=== PATIENT | female | born 1950 | race Caucasian/White ===

== ENCOUNTER 2016-07-05 10:30 | Inpatient (IN) | payer MEDICARE, OTHER ==
[2016-07-05 11:01] LABS: CHLORIDE,CL 100 mEq/L (98-106); SODIUM,NA 139 mEq/L (136-145)
[2016-07-05] MEDS ORDERED: Acetaminophen 325 MG Tab PO PRN (12:07)
[2016-07-05] MEDS ORDERED: Sodium Chloride 0.9% 10 ML Syringe FLUSH PRN (12:07)
[2016-07-05] MEDS ORDERED: Temazepam 15 MG Cap PO PRN (12:07)
[2016-07-05] MEDS ORDERED: Albuterol/Ipratropium 3.0-0.5 MG/3 ML Neb Soln ONE (12:23)
[2016-07-05] MEDS: Albuterol/Ipratropium 3.0-0.5 MG/3 ML Neb Soln NEB SCH ×3 (12:32→21:10)
[2016-07-05] MEDS: Levofloxacin/Dextrose 5%-Water 500 MG in Premix Bag 1 BAG IV SCH (14:11)
[2016-07-05] MEDS: Albuterol 0.083% 2.5 MG/3 ML Neb Soln NEB PRN ×2 (14:19→21:11)
[2016-07-05] MEDS: Enoxaparin 40 MG/0.4 ML Syringe SUBCUT SCH (21:11)
[2016-07-06] MEDS: Albuterol 0.083% 2.5 MG/3 ML Neb Soln NEB PRN ×4 (00:10→07:46)
[2016-07-06] MEDS: Albuterol/Ipratropium 3.0-0.5 MG/3 ML Neb Soln NEB SCH ×4 (09:17→20:00)
--- NOTE | 2016-07-06 10:08 | PN ---
DATE: 07/06/2016 S: Lani was admitted yesterday for COPD exacerbation. She is feeling better, less short of breath. Her sats are in the mid to high 90s on 2 L at this point. She has not spiked any temps. Lab work was reassuring. Upon review, her white count is elevated, still waiting on the CT scan report. PHYSICAL EXAMINATION: GENERAL: Today, she is pleasant and cooperative. NECK: Her neck veins are flat. LUNGS: Lung sounds are little more audibly wheezy today with mostly on expiration. No rales are heard. CARDIAC: Tones are regular. ABDOMEN: Soft. She has no peripheral edema. ASSESSMENT: CHRONIC OBSTRUCTIVE PULMONARY DISEASE EXACERBATION. P: I am going to add Solu-Medrol to her regimen. She has been on albuterol nebs, we will switch over to DuoNeb. No other changes at this time. JEFFERSON/SAMARIA /[id number]
[2016-07-06] MEDS: methylPREDNISolone Sodium Succinate 125 MG/2 ML SDV IVPUSH SCH ×2 (10:10→19:54)
[2016-07-06] MEDS: AMLODIPINE 5 MG PO SCH (10:10)
[2016-07-06] MEDS: ALPRAZOLAM 0.25 MG PO PRN (10:15)
[2016-07-06] MEDS: Naproxen 500 MG Tab PO PRN (12:05)
[2016-07-06] MEDS: Levofloxacin/Dextrose 5%-Water 500 MG in Premix Bag 1 BAG IV SCH (12:07)
[2016-07-06] MEDS: Enoxaparin 40 MG/0.4 ML Syringe SUBCUT SCH (19:59)
[2016-07-07] MEDS: Albuterol 0.083% 2.5 MG/3 ML Neb Soln NEB PRN ×3 (01:54→23:28)
[2016-07-07] MEDS: AMLODIPINE 5 MG PO SCH (07:51)
[2016-07-07] MEDS: methylPREDNISolone Sodium Succinate 125 MG/2 ML SDV IVPUSH SCH ×2 (07:52→19:23)
[2016-07-07] MEDS: Albuterol/Ipratropium 3.0-0.5 MG/3 ML Neb Soln NEB SCH ×4 (09:36→21:42)
[2016-07-07] MEDS: ALPRAZOLAM 0.25 MG PO PRN ×2 (12:25→21:00)
[2016-07-07] MEDS: Levofloxacin/Dextrose 5%-Water 500 MG in Premix Bag 1 BAG IV SCH (12:25)
[2016-07-07] MEDS: Naproxen 500 MG Tab PO PRN (15:25)
--- NOTE | 2016-07-07 21:16 | PCM.PN ---
- General Info Date of Service: 07/07/16 Admission Dx/Problem (Free Text): COPD exacerbation Subjective Update: patient in observation status for 48 hours and today moving to acute inpatient or COPD exacerbation. She continues to improve. Solu-Medrol was added yesterday which she is tolerating well. She was changed from albuterol to DuoNeb treatments. Nursing staff have no new concerns for her. She has been afebrile. O2 sats greater than 95% on 2 L per nasal cannula. Functional Status: Reports: tolerating diet - Review of Systems General: Reports: No Symptoms HEENT: Reports: no symptoms Pulmonary: Reports: cough Cardiovascular: Reports: No Symptoms Gastrointestinal: Reports: No symptoms Musculoskeletal: Reports: no symptoms - Patient Data Vitals - most recent: Last Vital Signs Temp 96.9 F 07/07/16 19:18 Pulse 89 07/07/16 19:18 Resp 20 07/07/16 19:18 BP 142/68 H 07/07/16 19:18 Pulse Ox 99 07/07/16 19:18 Weight - most recent: 159 lb 8 oz I&O - last 24 hours: Intake & Output 07/07/16 07/07/16 07/07/16 06:59 14:59 22:59 Intake Total 660 200 Balance 660 200 Freddy Results last 24 hrs: Microbiology 07/07/16 07:34 Gram Stain - Final Sputum - Expectorated Med Orders - Current: Current Medications Acetaminophen (Tylenol) 650 mg PO Q4H PRN PRN Reason: Pain (Mild 1-3)/fever Albuterol (Proventil Neb Soln) 2.5 mg NEB Q2H PRN PRN Reason: Shortness Of Breath/wheezing Last Admin: 07/07/16 05:29 Dose: 2.5 mg Albuterol/Ipratropium (Duoneb 3.0-0.5 Mg/3 Ml) 3 ml NEB QIDRT [facility] Last Admin: 07/07/16 16:24 Dose: 3 ml Alprazolam (Xanax) 0.25 - 0.5 mg PO Q6H PRN PRN Reason: Anxiety Last Admin: 07/07/16 12:25 Dose: 0.25 mg Enoxaparin Sodium (Lovenox) 40 mg SUBCUT Q24H [facility] Last Admin: 07/06/16 19:59 Dose: Not Given Levofloxacin/Dextrose 500 mg/ (Premix) 100 mls @ 100 mls/hr IV Q24H [facility] Last Admin: 07/07/16 12:25 Dose: 100 mls/hr Methylprednisolone Sodium Succinate (Solu-Medrol) 62.5 mg IVPUSH Q12H [facility] Last Admin: 07/07/16 19:23 Dose: 62.5 mg Naproxen (Naprosyn) 250 mg PO Q12H PRN PRN Reason: Pain Last Admin: 07/07/16 15:25 Dose: 250 mg Ptom (Amlodipine [ (Norvasc] 5 Mg)) 5 mg PO DAILY [facility] Last Admin: 07/07/16 07:51 Dose: 5 mg Sodium Chloride (Saline Flush) 10 ml FLUSH ASDIRECTED PRN PRN Reason: Keep Vein Open Temazepam (Restoril) 15 mg PO BEDTIME PRN PRN Reason: Sleep Discontinued Medications Albuterol/Ipratropium (Duoneb 3.0-0.5 Mg/3 Ml) Confirm Administered Dose 3 ml .ROUTE .STK-MED ONE Stop: 07/05/16 12:24 Last Admin: 07/05/16 12:51 Dose: Not Given - Exam General: alert, oriented HEENT: Mucous membr. moist/pink Neck: supple. No: lymphadenopathy Lungs: Wheezing. No: Crackles, Rhonchi Cardiovascular: Regular Rate, Regular Rhythm Abdomen: soft, no tenderness Extremities: no edema, no cyanosis Skin: warm, dry, intact Neurological: no new focal deficit Psy/Mental Status: alert - Problem List Review Problem List Initiated/Reviewed/Updated: Yes - My Orders Last 24 Hours: My Active Orders 07/07/16 07:34 CULTURE SPUTUM + SMEAR [RM] Routine 07/08/16 06:00 BMP [BASIC METABOLIC PANEL,BMP] [CHEM] Routine CBC WITH AUTO DIFF [HEME] Stat - Assessment Assessment:: COPD exacerbation - Plan Plan:: Continue with current treatments and medications. We'll recheck CBC and BMP tomorrow morning.
[2016-07-07] MEDS: Enoxaparin 40 MG/0.4 ML Syringe SUBCUT SCH (21:41)
[2016-07-08] MEDS: Albuterol 0.083% 2.5 MG/3 ML Neb Soln NEB PRN ×3 (03:45→23:32)
[2016-07-08] MEDS: AMLODIPINE 5 MG PO SCH (08:11)
[2016-07-08] MEDS: methylPREDNISolone Sodium Succinate 125 MG/2 ML SDV IVPUSH SCH ×2 (08:12→19:54)
[2016-07-08] MEDS: Naproxen 500 MG Tab PO PRN (08:18)
[2016-07-08] MEDS: Albuterol/Ipratropium 3.0-0.5 MG/3 ML Neb Soln NEB SCH ×4 (09:05→21:11)
[2016-07-08] MEDS: Levofloxacin/Dextrose 5%-Water 500 MG in Premix Bag 1 BAG IV SCH (13:18)
--- NOTE | 2016-07-08 14:33 | PCM.PN ---
- General Info Date of Service: 07/08/16 Admission Dx/Problem (Free Text): COPD exacerbation Subjective Update: Patient continues to feel that she is improving. Has been tolerating Solu- Medrol twice a day. Her white count is elevated from yesterday which can be attributed to Solu-Medrol. Is tolerating other treatments well. Continues to cough a lot. She has not had any improvement with Nasonex in the past and is not interested in trying it now. Nursing staff have no new concerns for her. She has been afebrile. O2 sats greater than 95% on 2 L per nasal cannula. Has no new complaints or concerns today. Functional Status: Reports: tolerating diet, ambulating. Denies: new symptoms - Review of Systems General: Reports: Appetite (is good). Denies: Fever, Chills HEENT: Denies: sinus congestion, sore throat Pulmonary: Reports: cough. Denies: shortness of breath, sputum, wheezing Cardiovascular: Denies: Chest Pain, Dyspnea on Exertion Gastrointestinal: Denies: Abdominal pain, Constipation, Diarrhea, Nausea, Vomiting Genitourinary: Reports: no symptoms Musculoskeletal: Reports: no symptoms Skin: Reports: dryness Neurological: Reports: No Symptoms - Patient Data Vitals - most recent: Last Vital Signs Temp 96.6 F 07/08/16 12:00 Pulse 78 07/08/16 12:00 Resp 18 07/08/16 12:00 BP 140/72 07/08/16 12:00 Pulse Ox 96 07/08/16 12:00 Weight - most recent: 159 lb 8 oz I&O - last 24 hours: Intake & Output 07/07/16 07/08/16 07/08/16 22:59 06:59 14:59 Intake Total 200 780 Balance 200 780 Lab Results last 24 hrs: Laboratory Results - last 24 hr 07/08/16 07/08/16 Range/Units 07:05 07:05 WBC 19.5 H (5.0-10.0) 10^3/uL RBC 5.19 (4.00-5.50) 10^6/uL Hgb 16.8 H (12.0-16.0) g/dL Hct 49.9 H (37.0-47.0) % MCV 96.1 H (82.0-94.0) fL MCH 32.4 H (27.0-32.0) pg MCHC 33.7 (33.0-38.0) g/dL RDW Coeff of Lucille 13.1 (11.0-15.0) % Plt Count 289 (150-400) 10^3/uL Neut % (Auto) 83.5 (35-85) % Lymph % (Auto) 9.4 L (10-55) % Branch % (Auto) 6.7 (0-16) % Eos % (Auto) 0.1 (0-5) % Baso % (Auto) 0.3 (0-3) % Neut # (Auto) 16.32 H (1.80-7.00) 10^3/uL Lymph # (Auto) 1.84 (1.00-4.80) 10^3/uL Branch # (Auto) 1.31 H (0.00-0.80) 10^3/uL Eos # (Auto) 0.01 (0.00-0.45) 10^3/uL Baso # (Auto) 0.05 10^3/uL Sodium 139 (136-145) mEq/L Potassium 4.0 (3.5-5.0) mEq/L Chloride 101 (98-106) mEq/L Carbon Dioxide 26 (21-32) mmol/L BUN 23 H (7-18) mg/dL Creatinine 1.1 H (0.6-1.0) mg/dL Est Cr Clr Drug Dosing 42.85 mL/min Estimated GFR (MDRD) 50 L (>=60) mL/min Glucose 127 H D (75-99) mg/dL Calcium 8.9 (8.4-10.1) mg/dL Freddy Results last 24 hrs: Microbiology 07/07/16 07:34 Gram Stain - Final Sputum - Expectorated Sputum Culture - Preliminary Med Orders - Current: Current Medications Acetaminophen (Tylenol) 650 mg PO Q4H PRN PRN Reason: Pain (Mild 1-3)/fever Albuterol (Proventil Neb Soln) 2.5 mg NEB Q2H PRN PRN Reason: Shortness Of Breath/wheezing Last Admin: 07/08/16 06:40 Dose: 2.5 mg Albuterol/Ipratropium (Duoneb 3.0-0.5 Mg/3 Ml) 3 ml NEB QIDRT [facility] Last Admin: 07/08/16 13:18 Dose: 3 ml Alprazolam (Xanax) 0.25 - 0.5 mg PO Q6H PRN PRN Reason: Anxiety Last Admin: 07/07/16 21:00 Dose: 0.5 mg Enoxaparin Sodium (Lovenox) 40 mg SUBCUT Q24H [facility] Last Admin: 07/07/16 21:41 Dose: Not Given Levofloxacin/Dextrose 500 mg/ (Premix) 100 mls @ 100 mls/hr IV Q24H [facility] Last Admin: 07/08/16 13:18 Dose: 100 mls/hr Methylprednisolone Sodium Succinate (Solu-Medrol) 62.5 mg IVPUSH Q12H [facility] Last Admin: 07/08/16 08:12 Dose: 62.5 mg Naproxen (Naprosyn) 250 mg PO Q12H PRN PRN Reason: Pain Last Admin: 07/08/16 08:18 Dose: 250 mg Ptom (Amlodipine [ (Norvasc] 5 Mg)) 5 mg PO DAILY [facility] Last Admin: 07/08/16 08:11 Dose: 5 mg Sodium Chloride (Saline Flush) 10 ml FLUSH ASDIRECTED PRN PRN Reason: Keep Vein Open Temazepam (Restoril) 15 mg PO BEDTIME PRN PRN Reason: Sleep Discontinued Medications Albuterol/Ipratropium (Duoneb 3.0-0.5 Mg/3 Ml) Confirm Administered Dose 3 ml .ROUTE .STK-MED ONE Stop: 07/05/16 12:24 Last Admin: 07/05/16 12:51 Dose: Not Given - Exam General: alert, oriented, no acute distress HEENT: Mucous membr. moist/pink Neck: supple. No: lymphadenopathy Lungs: Wheezing (Appreciated throughout all lung benitez.). No: Decreased breath sounds, Crackles, Stridor Cardiovascular: Regular Rate, Regular Rhythm, No Murmurs Abdomen: soft, no tenderness Extremities: no edema Skin: warm, dry, intact Neurological: no new focal deficit Psy/Mental Status: alert, normal affect, normal mood - Problem List Review Problem List Initiated/Reviewed/Updated: Yes - Assessment Assessment:: COPD exacerbation - Plan Plan:: Continue with current treatments and medications. Patient will be followed by her PCP on rounds tomorrow.
[2016-07-08] MEDS: ALPRAZOLAM 0.25 MG PO PRN (19:04)
[2016-07-08] MEDS: Enoxaparin 40 MG/0.4 ML Syringe SUBCUT SCH (21:11)
[2016-07-09] MEDS: Albuterol 0.083% 2.5 MG/3 ML Neb Soln NEB PRN ×2 (03:42→07:31)
[2016-07-09] MEDS: AMLODIPINE 5 MG PO SCH (07:32)
[2016-07-09] MEDS: methylPREDNISolone Sodium Succinate 125 MG/2 ML SDV IVPUSH SCH (08:12)
[2016-07-09] MEDS: Albuterol/Ipratropium 3.0-0.5 MG/3 ML Neb Soln NEB SCH ×4 (09:17→20:11)
[2016-07-09] MEDS: Levofloxacin/Dextrose 5%-Water 500 MG in Premix Bag 1 BAG IV SCH (13:06)
[2016-07-09] MEDS: Naproxen 500 MG Tab PO PRN (15:02)
[2016-07-09] MEDS: ALPRAZOLAM 0.25 MG PO PRN (19:32)
[2016-07-09] MEDS: Enoxaparin 40 MG/0.4 ML Syringe SUBCUT SCH (20:11)
[2016-07-10] MEDS: Albuterol 0.083% 2.5 MG/3 ML Neb Soln NEB PRN ×2 (00:08→04:14)
--- NOTE | 2016-07-10 07:04 | PN ---
DATE: 07/09/2016 S: Lani has had a pretty good weekend. She has remained afebrile. She is saturating in the upper 90s. We do have her off O2 now on at rest she is around 96%. She has not been up ambulating in the halls. We are going to do that. Thus far, all micro including sputum Gram stain has been negative. She does get a little tachycardic when she gets her nebulizers and steroids, but for the most part she tolerates this well. O: GENERAL: On physical exam today, she once again appears a little tachypneic and air hungry. HEENT: Otherwise benign. NECK: Veins are nondistended. LUNGS: Sounds appear to be clear with inspiration. She does continue to have some end-expiratory wheezing overall pretty adequate air movement. CARDIAC: Tones are regular. ABDOMEN: Soft. She has no peripheral edema. ASSESSMENT: CHRONIC OBSTRUCTIVE PULMONARY DISEASE EXACERBATION. P: We will get her up and ambulating with RT today and monitor essentially if in need of home O2. Otherwise no change. Plan on home tomorrow morning. JEFFERSON/SAMARIA /[id number]
[2016-07-10 07:26] VITALS: BP 142/76
[2016-07-10] MEDS: AMLODIPINE 5 MG PO SCH (08:03)
[2016-07-10] MEDS: Albuterol/Ipratropium 3.0-0.5 MG/3 ML Neb Soln NEB SCH (08:04)
--- NOTE | 2016-07-11 08:46 | DISCH ---
ADMISSION DIAGNOSIS: Chronic obstructive pulmonary disease exacerbation. DISCHARGE DIAGNOSIS: CHRONIC OBSTRUCTIVE PULMONARY DISEASE EXACERBATION. HISTORY: The patient presented with cough, wheezing, and shortness of breath. She has a known COPD, is very noncompliant with regard to cares in this regard. She does use albuterol inhaler and DuoNeb on a p.r.n. basis only. She has been resistant to any further Pulmonology followup or inhaled steroids. She presented with an elevated white count. No fever, but audible wheezing. Her lab work looked fine including a CRP and D-dimer. She was admitted for a COPD exacerbation. HOSPITAL COURSE: The patient was admitted, given IV steroids, Levaquin and DuoNeb. She has really had an unremarkable hospital course. She has not been febrile, is a little tachycardic and anxious with the nebs, but tolerated well. She has had no complications. She was on oxygen. She has been weaned off and is saturating in the mid 90s on room air. She remains a little tachypneic, which is her baseline. We did have RT evaluate and treat. She does drop her sats with ambulation, but she is against any home O2 and refuses home oxygen at this time. We are going to send her home on q.i.d. DuoNeb with p.r.n. albuterol inhaler. Finish course of oral Levaquin and I will see her back in clinic for followup in 2 weeks. At that time, I will try to talk to the patient about the potential for home O2, especially with activity during the day and consideration for an inhaled steroid. COMPLICATIONS: During her stay were none. CONSULTATIONS: RT. PROCEDURES: CT chest. DISPOSITION: Discharged home. LINA /[id number]
== END 2016-07-10 11:30 | disposition home or self-care (01) | DRG 192 ==
LOC: CC.FCMC 10:30 → CC.MS 10:30 → UNDOADMOB 11:56 → CC.MS 12:00 → OBSVTOIN 07-07 12:00
PROVIDERS: ADMIT Family Medicine; ATTEND Family Medicine
DX: J44.1 Chronic obstructive pulmonary disease with (acute) exacerbation (principal); J45.909 Unspecified asthma, uncomplicated; J30.9 Allergic rhinitis, unspecified; F41.9 Anxiety disorder, unspecified; I10 Essential (primary) hypertension; Z85.44 Personal history of malignant neoplasm of other female genital organs; Z88.1 Allergy status to other antibiotic agents; Z88.0 Allergy status to penicillin; Z88.8 Allergy status to other drugs, medicaments and biological substances; Z91.030 Bee allergy status; Z79.899 Other long term (current) drug therapy; C57.00 Malignant neoplasm of unspecified fallopian tube; Z85.89 Personal history of malignant neoplasm of other organs and systems; F17.200 Nicotine dependence, unspecified, uncomplicated
CPT/HCPCS: 36415; 71020; 71260; 80048; 85025; 85379; 86140; 87070; 87205; 93005; 94640 ×2; 96365; 96366 ×2; 96372 ×2; 96375; 96376 ×2; A9270 ×4; G0378 ×3; J1956 ×2; J2930 ×3; J7620 ×8; Q9967; 93010; 94760; 99220; 99226

== ENCOUNTER 2016-09-06 10:56 | Inpatient (IN) | payer MEDICARE, OTHER ==
[2016-09-06] MEDS ORDERED: Lidocaine/Prilocaine 2.5-2.5% Crm 5 GM Tube TOP ONE (11:09)
[2016-09-06] MEDS: Nicotine 14 MG/24 Hr Patch TRDERM SCH (11:43)
[2016-09-06] MEDS: Budesonide 0.5 MG/2 ML Neb Susp NEB SCH ×3 (11:44→20:01)
[2016-09-06] MEDS ORDERED: Albuterol/Ipratropium 3.0-0.5 MG/3 ML Neb Soln NEB SCH (11:45)
[2016-09-06] MEDS ORDERED: Budesonide 0.5 MG/2 ML Neb Susp ONE (11:47)
[2016-09-06] MEDS ORDERED: Albuterol/Ipratropium 3.0-0.5 MG/3 ML Neb Soln ONE (11:47)
[2016-09-06] MEDS: Albuterol 0.083% 2.5 MG/3 ML Neb Soln NEB PRN ×2 (13:40→21:43)
[2016-09-06] MEDS ORDERED: Sodium Chloride 0.9% 10 ML Syringe FLUSH PRN (13:52)
[2016-09-06] MEDS ORDERED: Acetaminophen 325 MG Tab PO PRN (13:52)
[2016-09-06] MEDS ORDERED: methylPREDNISolone Sodium Succinate 125 MG/2 ML SDV IVPUSH ONE (14:00)
[2016-09-06] MEDS: cefTRIAXone 1 GM Vial IVPUSH SCH (14:21)
[2016-09-06] MEDS: Azithromycin 500 MG in Sodium Chloride 0.9% 250 ML IV SCH (14:36)
[2016-09-06 15:00] LABS: CHLORIDE,CL 101 mEq/L (98-106); SODIUM,NA 139 mEq/L (136-145)
[2016-09-06] MEDS: Albuterol/Ipratropium 3.0-0.5 MG/3 ML Neb Soln NEB SCH ×3 (16:16→20:01)
[2016-09-06] MEDS: Naproxen 500 MG Tab PO PRN (19:09)
[2016-09-06] MEDS: VARENICLINE TARTRATE PO SCH (19:31)
[2016-09-06] MEDS: Enoxaparin 40 MG/0.4 ML Syringe SUBCUT SCH (19:31)
[2016-09-06] MEDS: ALPRAZolam 0.25 MG Tab PO PRN (19:40)
[2016-09-06] MEDS ORDERED: methylPREDNISolone Sodium Succinate 125 MG/2 ML SDV IVPUSH SCH (20:00)
[2016-09-07] MEDS: Albuterol/Ipratropium 3.0-0.5 MG/3 ML Neb Soln NEB PRN (00:15)
[2016-09-07] MEDS: Albuterol 0.083% 2.5 MG/3 ML Neb Soln NEB PRN ×3 (05:11→18:36)
[2016-09-07] MEDS: amLODIPine 2.5 MG Tab PO SCH ×2 (06:42→07:01)
[2016-09-07] MEDS: Naproxen 500 MG Tab PO PRN ×2 (06:46→18:36)
[2016-09-07] MEDS: Nicotine 21 MG/24 Hr Patch TRDERM SCH (08:30)
[2016-09-07] MEDS: Azithromycin 500 MG in Sodium Chloride 0.9% 250 ML IV SCH (08:31)
[2016-09-07] MEDS: VARENICLINE TARTRATE PO SCH ×2 (08:31→20:00)
[2016-09-07] MEDS: cefTRIAXone 1 GM Vial IVPUSH SCH (08:31)
[2016-09-07] MEDS: methylPREDNISolone Sodium Succinate 125 MG/2 ML SDV IVPUSH SCH (08:31)
[2016-09-07] MEDS: Budesonide 0.5 MG/2 ML Neb Susp NEB SCH ×3 (09:12→20:28)
[2016-09-07] MEDS: Albuterol/Ipratropium 3.0-0.5 MG/3 ML Neb Soln NEB SCH ×5 (09:13→20:28)
[2016-09-07] MEDS: Nicotine 14 MG/24 Hr Patch TRDERM SCH (09:40)
[2016-09-07] MEDS: ALPRAZolam 0.25 MG Tab PO PRN (19:55)
[2016-09-07] MEDS: Sennosides 8.6 MG Tab PO PRN (19:55)
[2016-09-07] MEDS: Enoxaparin 40 MG/0.4 ML Syringe SUBCUT SCH (20:00)
--- NOTE | 2016-09-07 21:37 | PCM.PN ---
- General Info Date of Service: 09/07/16 Admission Dx/Problem (Free Text): COPD Exacerbation Functional Status: Reports: pain controlled, tolerating diet. Denies: ambulating - Review of Systems General: Reports: Weakness, Fatigue. Denies: Fever HEENT: Reports: rhinitis Pulmonary: Reports: shortness of breath, cough, wheezing Cardiovascular: Reports: Edema Gastrointestinal: Reports: No symptoms Genitourinary: Reports: no symptoms Musculoskeletal: Reports: no symptoms Skin: Reports: no symptoms Neurological: Reports: No Symptoms - Patient Data Vitals - most recent: Last Vital Signs Temp 97.9 F 09/07/16 16:00 Pulse 92 09/07/16 16:00 Resp 22 H 09/07/16 16:00 BP 142/68 H 09/07/16 16:00 Pulse Ox 97 09/07/16 16:00 Weight - most recent: 163 lb 6.4 oz Med Orders - Current: Current Medications Acetaminophen (Tylenol) 650 mg PO Q4H PRN PRN Reason: Pain (Mild 1-3)/fever Albuterol (Proventil Neb Soln) 2.5 mg NEB Q4H PRN PRN Reason: Shortness of Breath Last Admin: 09/07/16 18:36 Dose: 2.5 mg Albuterol/Ipratropium (Duoneb 3.0-0.5 Mg/3 Ml) 3 ml NEB QIDRT [facility] Last Admin: 09/07/16 20:28 Dose: Not Given Albuterol/Ipratropium (Duoneb 3.0-0.5 Mg/3 Ml) 3 ml NEB Q4H PRN PRN Reason: Dyspnea Last Admin: 09/07/16 00:15 Dose: 3 ml Alprazolam (Xanax) 0 mg PO Q6H PRN PRN Reason: Anxiety Last Admin: 09/07/16 19:55 Dose: 0.25 mg Amlodipine Besylate (Norvasc) 5 mg PO 0700 [facility] Budesonide (Pulmicort) 0.5 mg NEB BIDRT [facility] Last Admin: 09/07/16 20:28 Dose: Not Given Ceftriaxone Sodium (Rocephin) 1 gm IVPUSH Q24H [facility] Last Admin: 09/07/16 08:31 Dose: 1 gm Enoxaparin Sodium (Lovenox) 40 mg SUBCUT Q24H [facility] Last Admin: 09/07/16 20:00 Dose: Not Given Azithromycin 500 mg/ Sodium (Chloride) 250 mls @ 250 mls/hr IV Q24H [facility] Last Admin: 09/07/16 08:31 Dose: 250 mls/hr Methylprednisolone Sodium Succinate (Solu-Medrol) 125 mg IVPUSH Q24H [facility] Last Admin: 09/07/16 08:31 Dose: 125 mg Naproxen (Naprosyn) 250 mg PO Q6H PRN PRN Reason: Pain Last Admin: 09/07/16 18:36 Dose: 250 mg Nicotine (Habitrol) 21 mg TRDERM Q24H [facility] Last Admin: 09/07/16 08:30 Dose: 21 mg Ptom(Varenicline Tartrate [Chantix] 1 Tab) 1 tab PO BID [facility] Last Admin: 09/07/16 20:00 Dose: 1 tab Senna (Senna) 8.6 mg PO DAILY PRN PRN Reason: Constipation Last Admin: 09/07/16 19:55 Dose: 8.6 mg Sodium Chloride (Saline Flush) 10 ml FLUSH ASDIRECTED PRN PRN Reason: Keep Vein Open Discontinued Medications Albuterol (Proventil Neb Soln) 2.5 mg NEB QIDRT PRN PRN Reason: Shortness of Breath Last Admin: 09/06/16 21:43 Dose: 2.5 mg Albuterol/Ipratropium (Duoneb 3.0-0.5 Mg/3 Ml) 3 ml NEB QIDRT [facility] Last Admin: 09/06/16 11:44 Dose: 3 ml Albuterol/Ipratropium (Duoneb 3.0-0.5 Mg/3 Ml) Confirm Administered Dose 3 ml .ROUTE .STK-MED ONE Stop: 09/06/16 11:48 Last Admin: 09/06/16 11:45 Dose: Not Given Amlodipine Besylate (Norvasc) 5 mg PO DAILY [facility] Last Admin: 09/07/16 07:01 Dose: Not Given Budesonide (Pulmicort) Confirm Administered Dose 0.5 mg .ROUTE .STK-MED ONE Stop: 09/06/16 11:48 Last Admin: 09/06/16 11:45 Dose: Not Given Lidocaine/Prilocaine (Emla Crm) 0 gm TOP ONETIME ONE Stop: 09/06/16 11:10 Last Admin: 09/06/16 11:44 Dose: 1 applic Methylprednisolone Sodium Succinate (Solu-Medrol) 125 mg IVPUSH Q12H [facility] Last Admin: 09/06/16 19:33 Dose: 125 mg Methylprednisolone Sodium Succinate (Solu-Medrol) 125 mg IVPUSH ONETIME ONE Stop: 09/06/16 14:01 Last Admin: 09/06/16 14:15 Dose: 125 mg Nicotine (Habitrol) 14 mg TRDERM Q24H [facility] Last Admin: 09/07/16 09:40 Dose: Not Given - Exam Quality Assessment: supplemental oxygen General: alert, oriented HEENT: Mucous membr. moist/pink Neck: supple Lungs: Decreased breath sounds, Wheezing Cardiovascular: Regular Rate, Regular Rhythm Abdomen: bowel sounds present, soft, no tenderness Extremities: edema (1+) Skin: warm, dry Psy/Mental Status: alert, normal affect, normal mood - Problem List & Annotations (1) COPD (chronic obstructive pulmonary disease) SNOMED Code(s): 82947801 Code(s): J44.9 - CHRONIC OBSTRUCTIVE PULMONARY DISEASE, UNSPECIFIED Status : Acute Priority: High Current Visit: No - Problem List Review Problem List Initiated/Reviewed/Updated: Yes - My Orders Last 24 Hours: My Active Orders 09/07/16 18:39 Sennosides [Senna] 8.6 mg PO DAILY PRN - Assessment Assessment:: COPD Exacerbation - Plan Plan:: Patient admitted by Dr. Nicole for COPD Exacerbation. Started on Solu Medrol, Rocephin and RT treatments. Labs noted, CRP negative. Patient does feel mildly better than on admit. Does continue to have frequent cough and audible wheezing. Dyspneic with much conversation. Continues on oxygen. Minimal tolerance of activity. Appetite good. Does have mild edema which has been an ongoing issue for weeks. Feet sore, achilles tendon sore from recent Cipro use. Will continue with IV antibiotics. RT treatments DAily Solu Medrol. Inappropriate for discharge due to shortness of breath and hypoxia.
[2016-09-08] MEDS: Albuterol 0.083% 2.5 MG/3 ML Neb Soln NEB PRN ×5 (00:25→23:26)
[2016-09-08] MEDS: amLODIPine 2.5 MG Tab PO SCH (06:50)
[2016-09-08] MEDS: Naproxen 500 MG Tab PO PRN (08:01)
--- NOTE | 2016-09-08 08:14 | PCM.PN ---
- General Info Date of Service: 09/08/16 (Sitting up at the side of the bed eating breakfast. Patient is still markedly sob at this time, and has very little activity tolerance. BBS are diminished, with still sme expiritory wheezing noted. Patient wants to go home, but I instructed her that she was not ready, and may not be for a day or two more. Will order labs for morning. Will continue to monitor.) Admission Dx/Problem (Free Text): COPD Exacerbation Functional Status: Reports: pain controlled - Review of Systems General: Reports: No Symptoms HEENT: Reports: no symptoms Pulmonary: Reports: shortness of breath, cough, wheezing Cardiovascular: Reports: No Symptoms Gastrointestinal: Reports: No symptoms Genitourinary: Reports: no symptoms Musculoskeletal: Reports: no symptoms Skin: Reports: no symptoms Neurological: Reports: No Symptoms Psychiatric: Reports: no symptoms - Patient Data Vitals - most recent: Last Vital Signs Temp 95.9 F 09/08/16 07:53 Pulse 78 09/08/16 07:53 Resp 28 H 09/08/16 07:53 BP 134/70 09/08/16 07:53 Pulse Ox 98 09/08/16 07:53 Weight - most recent: 163 lb 6.4 oz Med Orders - Current: Current Medications Acetaminophen (Tylenol) 650 mg PO Q4H PRN PRN Reason: Pain (Mild 1-3)/fever Albuterol (Proventil Neb Soln) 2.5 mg NEB Q4H PRN PRN Reason: Shortness of Breath Last Admin: 09/08/16 05:32 Dose: 2.5 mg Albuterol/Ipratropium (Duoneb 3.0-0.5 Mg/3 Ml) 3 ml NEB QIDRT [facility] Last Admin: 09/07/16 20:28 Dose: Not Given Albuterol/Ipratropium (Duoneb 3.0-0.5 Mg/3 Ml) 3 ml NEB Q4H PRN PRN Reason: Dyspnea Last Admin: 09/07/16 00:15 Dose: 3 ml Alprazolam (Xanax) 0 mg PO Q6H PRN PRN Reason: Anxiety Last Admin: 09/07/16 19:55 Dose: 0.25 mg Amlodipine Besylate (Norvasc) 5 mg PO 0700 [facility] Last Admin: 09/08/16 06:50 Dose: 5 mg Budesonide (Pulmicort) 0.5 mg NEB BIDRT [facility] Last Admin: 09/07/16 20:28 Dose: Not Given Ceftriaxone Sodium (Rocephin) 1 gm IVPUSH Q24H [facility] Last Admin: 09/07/16 08:31 Dose: 1 gm Enoxaparin Sodium (Lovenox) 40 mg SUBCUT Q24H [facility] Last Admin: 09/07/16 20:00 Dose: Not Given Azithromycin 500 mg/ Sodium (Chloride) 250 mls @ 250 mls/hr IV Q24H [facility] Last Admin: 09/07/16 08:31 Dose: 250 mls/hr Methylprednisolone Sodium Succinate (Solu-Medrol) 125 mg IVPUSH Q24H [facility] Last Admin: 09/07/16 08:31 Dose: 125 mg Naproxen (Naprosyn) 250 mg PO Q6H PRN PRN Reason: Pain Last Admin: 09/08/16 08:01 Dose: 250 mg Nicotine (Habitrol) 21 mg TRDERM Q24H [facility] Last Admin: 09/07/16 08:30 Dose: 21 mg Ptom(Varenicline Tartrate [Chantix] 1 Tab) 1 tab PO BID [facility] Last Admin: 09/07/16 20:00 Dose: 1 tab Senna (Senna) 8.6 mg PO DAILY PRN PRN Reason: Constipation Last Admin: 09/07/16 19:55 Dose: 8.6 mg Sodium Chloride (Saline Flush) 10 ml FLUSH ASDIRECTED PRN PRN Reason: Keep Vein Open Discontinued Medications Albuterol (Proventil Neb Soln) 2.5 mg NEB QIDRT PRN PRN Reason: Shortness of Breath Last Admin: 09/06/16 21:43 Dose: 2.5 mg Albuterol/Ipratropium (Duoneb 3.0-0.5 Mg/3 Ml) 3 ml NEB QIDRT [facility] Last Admin: 09/06/16 11:44 Dose: 3 ml Albuterol/Ipratropium (Duoneb 3.0-0.5 Mg/3 Ml) Confirm Administered Dose 3 ml .ROUTE .STK-MED ONE Stop: 09/06/16 11:48 Last Admin: 09/06/16 11:45 Dose: Not Given Amlodipine Besylate (Norvasc) 5 mg PO DAILY [facility] Last Admin: 09/07/16 07:01 Dose: Not Given Budesonide (Pulmicort) Confirm Administered Dose 0.5 mg .ROUTE .STK-MED ONE Stop: 09/06/16 11:48 Last Admin: 09/06/16 11:45 Dose: Not Given Lidocaine/Prilocaine (Emla Crm) 0 gm TOP ONETIME ONE Stop: 09/06/16 11:10 Last Admin: 09/06/16 11:44 Dose: 1 applic Methylprednisolone Sodium Succinate (Solu-Medrol) 125 mg IVPUSH Q12H [facility] Last Admin: 09/06/16 19:33 Dose: 125 mg Methylprednisolone Sodium Succinate (Solu-Medrol) 125 mg IVPUSH ONETIME ONE Stop: 09/06/16 14:01 Last Admin: 09/06/16 14:15 Dose: 125 mg Nicotine (Habitrol) 14 mg TRDERM Q24H [facility] Last Admin: 09/07/16 09:40 Dose: Not Given - Problem List Review Problem List Initiated/Reviewed/Updated: Yes - Assessment Assessment:: COPD Exacerbation - Plan Plan:: Patient admitted by Dr. Nicole for COPD Exacerbation. Started on Solu Medrol, Rocephin and RT treatments. Labs noted, CRP negative. Patient does feel mildly better than on admit. Does continue to have frequent cough and audible wheezing. Dyspneic with much conversation. Continues on oxygen. Minimal tolerance of activity. Appetite good. Does have mild edema which has been an ongoing issue for weeks. Feet sore, achilles tendon sore from recent Cipro use. Will continue with IV antibiotics. RT treatments DAily Solu Medrol. Inappropriate for discharge due to shortness of breath and hypoxia.
[2016-09-08] MEDS: Albuterol/Ipratropium 3.0-0.5 MG/3 ML Neb Soln NEB SCH ×4 (08:31→20:32)
[2016-09-08] MEDS: Budesonide 0.5 MG/2 ML Neb Susp NEB SCH ×2 (08:31→20:32)
[2016-09-08] MEDS: Nicotine 21 MG/24 Hr Patch TRDERM SCH (08:32)
[2016-09-08] MEDS: cefTRIAXone 1 GM Vial IVPUSH SCH (08:34)
[2016-09-08] MEDS: methylPREDNISolone Sodium Succinate 125 MG/2 ML SDV IVPUSH SCH (08:34)
[2016-09-08] MEDS: VARENICLINE TARTRATE PO SCH ×2 (08:34→19:55)
[2016-09-08] MEDS: Azithromycin 500 MG in Sodium Chloride 0.9% 250 ML IV SCH (08:34)
[2016-09-08] MEDS: ALPRAZolam 0.25 MG Tab PO PRN ×2 (15:36→21:30)
[2016-09-08] MEDS: Enoxaparin 40 MG/0.4 ML Syringe SUBCUT SCH (19:55)
[2016-09-08] MEDS: Sennosides 8.6 MG Tab PO PRN (20:01)
[2016-09-09] MEDS: Albuterol/Ipratropium 3.0-0.5 MG/3 ML Neb Soln NEB PRN (02:52)
[2016-09-09] MEDS: amLODIPine 2.5 MG Tab PO SCH (06:22)
[2016-09-09] MEDS: Albuterol 0.083% 2.5 MG/3 ML Neb Soln NEB PRN ×2 (06:22→23:22)
[2016-09-09] MEDS: Naproxen 500 MG Tab PO PRN ×2 (08:02→16:20)
[2016-09-09] MEDS: Nicotine 21 MG/24 Hr Patch TRDERM SCH (08:02)
[2016-09-09] MEDS: methylPREDNISolone Sodium Succinate 125 MG/2 ML SDV IVPUSH SCH ×3 (08:23→23:20)
[2016-09-09] MEDS: VARENICLINE TARTRATE PO SCH ×2 (08:23→19:30)
[2016-09-09] MEDS: Budesonide 0.5 MG/2 ML Neb Susp NEB SCH ×2 (08:23→20:20)
[2016-09-09] MEDS: Albuterol/Ipratropium 3.0-0.5 MG/3 ML Neb Soln NEB SCH ×4 (08:23→20:20)
[2016-09-09] MEDS: Azithromycin 500 MG in Sodium Chloride 0.9% 250 ML IV SCH (08:23)
[2016-09-09] MEDS: cefTRIAXone 1 GM Vial IVPUSH SCH (08:23)
--- NOTE | 2016-09-09 09:20 | PCM.PN ---
- General Info Date of Service: 09/09/16 (SOB worse today with increased wheezing noted throughout. Will increase solumedrol 125 mg to q 8 for a coouple of days, and repeat chest x-ray.) Admission Dx/Problem (Free Text): COPD Exacerbation Functional Status: Reports: pain controlled - Review of Systems General: Reports: No Symptoms HEENT: Reports: no symptoms Pulmonary: Reports: shortness of breath, wheezing Cardiovascular: Reports: No Symptoms Gastrointestinal: Reports: No symptoms Genitourinary: Reports: no symptoms Musculoskeletal: Reports: no symptoms Skin: Reports: no symptoms Neurological: Reports: No Symptoms Psychiatric: Reports: no symptoms - Patient Data Vitals - most recent: Last Vital Signs Temp 96.2 F 09/09/16 07:46 Pulse 67 09/09/16 07:46 Resp 20 09/09/16 07:46 BP 138/74 09/09/16 07:46 Pulse Ox 99 09/09/16 07:46 Weight - most recent: 163 lb 6.4 oz Med Orders - Current: Current Medications Acetaminophen (Tylenol) 650 mg PO Q4H PRN PRN Reason: Pain (Mild 1-3)/fever Albuterol (Proventil Neb Soln) 2.5 mg NEB Q4H PRN PRN Reason: Shortness of Breath Last Admin: 09/09/16 06:22 Dose: 2.5 mg Albuterol/Ipratropium (Duoneb 3.0-0.5 Mg/3 Ml) 3 ml NEB QIDRT [facility] Last Admin: 09/09/16 08:23 Dose: 3 ml Albuterol/Ipratropium (Duoneb 3.0-0.5 Mg/3 Ml) 3 ml NEB Q4H PRN PRN Reason: Dyspnea Last Admin: 09/09/16 02:52 Dose: 3 ml Alprazolam (Xanax) 0 mg PO Q6H PRN PRN Reason: Anxiety Last Admin: 09/08/16 21:30 Dose: 0.5 mg Amlodipine Besylate (Norvasc) 5 mg PO 0700 [facility] Last Admin: 09/09/16 06:22 Dose: 5 mg Budesonide (Pulmicort) 0.5 mg NEB BIDRT [facility] Last Admin: 09/09/16 08:23 Dose: 0.5 mg Ceftriaxone Sodium (Rocephin) 1 gm IVPUSH Q24H [facility] Last Admin: 09/09/16 08:23 Dose: 1 gm Enoxaparin Sodium (Lovenox) 40 mg SUBCUT Q24H [facility] Last Admin: 09/08/16 19:55 Dose: Not Given Azithromycin 500 mg/ Sodium (Chloride) 250 mls @ 250 mls/hr IV Q24H [facility] Last Admin: 09/09/16 08:23 Dose: 250 mls/hr Methylprednisolone Sodium Succinate (Solu-Medrol) 125 mg IVPUSH Q8H [facility] Naproxen (Naprosyn) 250 mg PO Q6H PRN PRN Reason: Pain Last Admin: 09/09/16 08:02 Dose: 250 mg Nicotine (Habitrol) 21 mg TRDERM Q24H [facility] Last Admin: 09/09/16 08:02 Dose: 21 mg Ptom(Varenicline Tartrate [Chantix] 1 Tab) 1 tab PO BID [facility] Last Admin: 09/09/16 08:23 Dose: 1 tab Senna (Senna) 8.6 mg PO DAILY PRN PRN Reason: Constipation Last Admin: 09/08/16 20:01 Dose: 8.6 mg Sodium Chloride (Saline Flush) 10 ml FLUSH ASDIRECTED PRN PRN Reason: Keep Vein Open Discontinued Medications Albuterol (Proventil Neb Soln) 2.5 mg NEB QIDRT PRN PRN Reason: Shortness of Breath Last Admin: 09/06/16 21:43 Dose: 2.5 mg Albuterol/Ipratropium (Duoneb 3.0-0.5 Mg/3 Ml) 3 ml NEB QIDRT [facility] Last Admin: 09/06/16 11:44 Dose: 3 ml Albuterol/Ipratropium (Duoneb 3.0-0.5 Mg/3 Ml) Confirm Administered Dose 3 ml .ROUTE .STK-MED ONE Stop: 09/06/16 11:48 Last Admin: 09/06/16 11:45 Dose: Not Given Amlodipine Besylate (Norvasc) 5 mg PO DAILY [facility] Last Admin: 09/07/16 07:01 Dose: Not Given Budesonide (Pulmicort) Confirm Administered Dose 0.5 mg .ROUTE .STK-MED ONE Stop: 09/06/16 11:48 Last Admin: 09/06/16 11:45 Dose: Not Given Lidocaine/Prilocaine (Emla Crm) 0 gm TOP ONETIME ONE Stop: 09/06/16 11:10 Last Admin: 09/06/16 11:44 Dose: 1 applic Methylprednisolone Sodium Succinate (Solu-Medrol) 125 mg IVPUSH Q12H [facility] Last Admin: 09/06/16 19:33 Dose: 125 mg Methylprednisolone Sodium Succinate (Solu-Medrol) 125 mg IVPUSH ONETIME ONE Stop: 09/06/16 14:01 Last Admin: 09/06/16 14:15 Dose: 125 mg Methylprednisolone Sodium Succinate (Solu-Medrol) 125 mg IVPUSH Q24H [facility] Last Admin: 09/09/16 08:23 Dose: 125 mg Nicotine (Habitrol) 14 mg TRDERM Q24H [facility] Last Admin: 09/07/16 09:40 Dose: Not Given - Problem List Review Problem List Initiated/Reviewed/Updated: Yes - My Orders Last 24 Hours: My Active Orders 09/09/16 09:17 Chest 2V [CR] Routine methylPREDNISolone Sod Succ [Solu-MEDROL] 125 mg IVPUSH Q8H - Assessment Assessment:: COPD Exacerbation - Plan Plan:: Patient admitted by Dr. Nicole for COPD Exacerbation. Started on Solu Medrol, Rocephin and RT treatments. Labs noted, CRP negative. Patient does feel mildly better than on admit. Does continue to have frequent cough and audible wheezing. Dyspneic with much conversation. Continues on oxygen. Minimal tolerance of activity. Appetite good. Does have mild edema which has been an ongoing issue for weeks. Feet sore, achilles tendon sore from recent Cipro use. Will continue with IV antibiotics. RT treatments DAily Solu Medrol. Inappropriate for discharge due to shortness of breath and hypoxia.
[2016-09-09] MEDS: ALPRAZolam 0.25 MG Tab PO PRN (18:50)
[2016-09-09] MEDS: Enoxaparin 40 MG/0.4 ML Syringe SUBCUT SCH (19:30)
[2016-09-09] MEDS: Sennosides 8.6 MG Tab PO PRN (23:22)
[2016-09-10] MEDS: Albuterol 0.083% 2.5 MG/3 ML Neb Soln NEB PRN ×2 (04:06→10:02)
[2016-09-10] MEDS: amLODIPine 2.5 MG Tab PO SCH (06:29)
[2016-09-10] MEDS: Naproxen 500 MG Tab PO PRN (06:57)
[2016-09-10] MEDS: methylPREDNISolone Sodium Succinate 125 MG/2 ML SDV IVPUSH SCH (07:54)
[2016-09-10] MEDS: Budesonide 0.5 MG/2 ML Neb Susp NEB SCH ×2 (08:02→21:01)
[2016-09-10] MEDS: Nicotine 21 MG/24 Hr Patch TRDERM SCH (08:02)
[2016-09-10] MEDS: Albuterol/Ipratropium 3.0-0.5 MG/3 ML Neb Soln NEB SCH ×4 (08:02→21:02)
[2016-09-10] MEDS: Azithromycin 500 MG in Sodium Chloride 0.9% 250 ML IV SCH (08:03)
[2016-09-10] MEDS: cefTRIAXone 1 GM Vial IVPUSH SCH (08:03)
[2016-09-10] MEDS: VARENICLINE TARTRATE PO SCH ×2 (08:04→19:51)
[2016-09-10] MEDS: ALPRAZolam 0.25 MG Tab PO PRN ×2 (12:57→19:50)
[2016-09-10] MEDS: Sennosides 8.6 MG Tab PO PRN (19:50)
[2016-09-10] MEDS: Enoxaparin 40 MG/0.4 ML Syringe SUBCUT SCH (19:51)
--- NOTE | 2016-09-10 21:30 | PCM.PN ---
- General Info Date of Service: 09/10/16 Admission Dx/Problem (Free Text): COPD Exacerbation Functional Status: Reports: pain controlled, tolerating diet. Denies: ambulating - Review of Systems General: Reports: Fatigue, Malaise. Denies: Fever, Weakness HEENT: Reports: rhinitis Pulmonary: Reports: shortness of breath, cough, wheezing Cardiovascular: Reports: Edema. Denies: Chest Pain, Lightheadedness Gastrointestinal: Denies: Abdominal pain, Nausea, Vomiting Genitourinary: Reports: no symptoms Musculoskeletal: Reports: no symptoms Skin: Reports: no symptoms Neurological: Reports: No Symptoms - Patient Data Vitals - most recent: Last Vital Signs Temp 97.4 F 09/10/16 16:00 Pulse 86 09/10/16 16:00 Resp 16 09/10/16 16:00 BP 140/82 09/10/16 16:00 Pulse Ox 96 09/10/16 16:00 Weight - most recent: 163 lb 6.4 oz I&O - last 24 hours: Intake & Output 09/10/16 09/10/16 09/10/16 06:59 14:59 22:59 Intake Total 760 100 Balance 760 100 Lab Results last 24 hrs: Laboratory Results - last 24 hr 09/10/16 09/10/16 09/10/16 Range/Units 07:00 07:00 07:10 WBC 12.8 H (5.0-10.0) 10^3/uL RBC 4.84 (4.00-5.50) 10^6/uL Hgb 15.6 (12.0-16.0) g/dL Hct 45.9 (37.0-47.0) % MCV 94.8 H (82.0-94.0) fL MCH 32.2 H (27.0-32.0) pg MCHC 34.0 (33.0-38.0) g/dL RDW Coeff of Lucille 13.9 (11.0-15.0) % Plt Count 312 (150-400) 10^3/uL Neut % (Auto) 82.7 (35-85) % Lymph % (Auto) 11.1 (10-55) % [place]away % (Auto) 6.1 (0-16) % Eos % (Auto) 0 (0-5) % Baso % (Auto) 0.1 (0-3) % Neut # (Auto) 10.63 H (1.80-7.00) 10^3/uL Lymph # (Auto) 1.42 (1.00-4.80) 10^3/uL [place] # (Auto) 0.78 (0.00-0.80) 10^3/uL Eos # (Auto) 0.00 (0.00-0.45) 10^3/uL Baso # (Auto) 0.01 10^3/uL Sodium 140 (136-145) mEq/L Potassium 4.0 (3.5-5.0) mEq/L Chloride 102 (98-106) mEq/L Carbon Dioxide 29 (21-32) mmol/L BUN 28 H (7-18) mg/dL Creatinine 1.0 (0.6-1.0) mg/dL Est Cr Clr Drug Dosing 45.16 mL/min Estimated GFR (MDRD) 55 L (>=60) mL/min Glucose 137 H (75-99) mg/dL Calcium 9.3 (8.4-10.1) mg/dL Total Bilirubin 0.5 (0.0-1.0) mg/dL AST 15 (15-37) U/L ALT 27 (12-78) U/L Alkaline Phosphatase 55 (46-116) U/L Qvw-[id number] Pept 1336 H (0-1000) pg/nL Total Protein 7.2 (6.4-8.2) g/dL Albumin 3.6 (3.4-5.0) g/dL Med Orders - Current: Current Medications Acetaminophen (Tylenol) 650 mg PO Q4H PRN PRN Reason: Pain (Mild 1-3)/fever Albuterol (Proventil Neb Soln) 2.5 mg NEB Q4H PRN PRN Reason: Shortness of Breath Last Admin: 09/10/16 10:02 Dose: 2.5 mg Albuterol/Ipratropium (Duoneb 3.0-0.5 Mg/3 Ml) 3 ml NEB QIDRT [facility] Last Admin: 09/10/16 21:02 Dose: 3 ml Albuterol/Ipratropium (Duoneb 3.0-0.5 Mg/3 Ml) 3 ml NEB Q4H PRN PRN Reason: Dyspnea Last Admin: 09/09/16 02:52 Dose: 3 ml Alprazolam (Xanax) 0 mg PO Q6H PRN PRN Reason: Anxiety Last Admin: 09/10/16 19:50 Dose: 0.5 mg Amlodipine Besylate (Norvasc) 5 mg PO 0700 [facility] Last Admin: 09/10/16 06:29 Dose: 5 mg Budesonide (Pulmicort) 0.5 mg NEB BIDRT [facility] Last Admin: 09/10/16 21:01 Dose: 0.5 mg Ceftriaxone Sodium (Rocephin) 1 gm IVPUSH Q24H [facility] Last Admin: 09/10/16 08:03 Dose: 1 gm Enoxaparin Sodium (Lovenox) 40 mg SUBCUT Q24H [facility] Last Admin: 09/10/16 19:51 Dose: Not Given Nicotine (Habitrol) 21 mg TRDERM Q24H [facility] Last Admin: 09/10/16 08:02 Dose: 21 mg Ptom(Varenicline Tartrate [Chantix] 1 Tab) 1 tab PO BID [facility] Last Admin: 09/10/16 19:51 Dose: 1 tab Senna (Senna) 8.6 mg PO DAILY PRN PRN Reason: Constipation Last Admin: 09/10/16 19:50 Dose: 8.6 mg Sodium Chloride (Saline Flush) 10 ml FLUSH ASDIRECTED PRN PRN Reason: Keep Vein Open Discontinued Medications Albuterol (Proventil Neb Soln) 2.5 mg NEB QIDRT PRN PRN Reason: Shortness of Breath Last Admin: 09/06/16 21:43 Dose: 2.5 mg Albuterol/Ipratropium (Duoneb 3.0-0.5 Mg/3 Ml) 3 ml NEB QIDRT [facility] Last Admin: 09/06/16 11:44 Dose: 3 ml Albuterol/Ipratropium (Duoneb 3.0-0.5 Mg/3 Ml) Confirm Administered Dose 3 ml .ROUTE .STK-MED ONE Stop: 09/06/16 11:48 Last Admin: 09/06/16 11:45 Dose: Not Given Amlodipine Besylate (Norvasc) 5 mg PO DAILY [facility] Last Admin: 09/07/16 07:01 Dose: Not Given Budesonide (Pulmicort) Confirm Administered Dose 0.5 mg .ROUTE .STK-MED ONE Stop: 09/06/16 11:48 Last Admin: 09/06/16 11:45 Dose: Not Given Azithromycin 500 mg/ Sodium (Chloride) 250 mls @ 250 mls/hr IV Q24H [facility] Last Admin: 09/10/16 08:03 Dose: 250 mls/hr Lidocaine/Prilocaine (Emla Crm) 0 gm TOP ONETIME ONE Stop: 09/06/16 11:10 Last Admin: 09/06/16 11:44 Dose: 1 applic Methylprednisolone Sodium Succinate (Solu-Medrol) 125 mg IVPUSH Q12H [facility] Last Admin: 09/06/16 19:33 Dose: 125 mg Methylprednisolone Sodium Succinate (Solu-Medrol) 125 mg IVPUSH ONETIME ONE Stop: 09/06/16 14:01 Last Admin: 09/06/16 14:15 Dose: 125 mg Methylprednisolone Sodium Succinate (Solu-Medrol) 125 mg IVPUSH Q24H [facility] Last Admin: 09/09/16 08:23 Dose: 125 mg Methylprednisolone Sodium Succinate (Solu-Medrol) 125 mg IVPUSH Q8H [facility] Last Admin: 09/10/16 07:54 Dose: 125 mg Naproxen (Naprosyn) 250 mg PO Q6H PRN PRN Reason: Pain Last Admin: 09/10/16 06:57 Dose: 250 mg Nicotine (Habitrol) 14 mg TRDERM Q24H [facility] Last Admin: 09/07/16 09:40 Dose: Not Given - Exam General: alert, oriented HEENT: Mucous membr. moist/pink Neck: supple Lungs: Decreased breath sounds, Wheezing Cardiovascular: Regular Rate, Regular Rhythm Abdomen: bowel sounds present, soft, no tenderness Extremities: edema (trace) Skin: warm, dry Neurological: no new focal deficit - Problem List & Annotations (1) COPD (chronic obstructive pulmonary disease) SNOMED Code(s): 26181857 Code(s): J44.9 - CHRONIC OBSTRUCTIVE PULMONARY DISEASE, UNSPECIFIED Status : Acute Priority: High Current Visit: No Qualifiers: COPD type: COPD with acute exacerbation Qualified Code(s): J44.1 - Chronic obstructive pulmonary disease with (acute) exacerbation - Problem List Review Problem List Initiated/Reviewed/Updated: Yes - Assessment Assessment:: COPD Exacerbation - Plan Plan:: Patient admitted by Dr. Nicole for COPD Exacerbation. Started on Solu Medrol, Rocephin and RT treatments. Labs noted, CRP negative. Patient does feel mildly better than on admit. Does continue to have frequent cough and audible wheezing. Dyspneic with much conversation. Continues on oxygen. Minimal tolerance of activity. Appetite good. Does have mild edema which has been an ongoing issue for weeks. Feet sore, achilles tendon sore from recent Cipro use. Will continue with IV antibiotics. RT treatments DAily Solu Medrol. Inappropriate for discharge due to shortness of breath and hypoxia. 09-10-2016 Patient admits to ongoing shortness of breath and cough Is up to bathroom, gets dyspneic with activity. Has not been up ambulating. Mild edema, soreness in ankles. Brian Wang did increase her Solu Medrol yesterday to every 8 hours. She admits to being more jittery now today. Labs done this am are stable. Will obtain a Pro BNP due to ongoing shortness of breath. Stop Solu Medrol today. Stop Zithromax. Encouraged her to take Xanax more frequently than at night. Dr. Nicole did discuss the use of Daliresp and will possibly start that at her follow up. Possible discharge home tomorrow.
[2016-09-11] MEDS: Albuterol 0.083% 2.5 MG/3 ML Neb Soln NEB PRN (00:58)
[2016-09-11] MEDS: Albuterol/Ipratropium 3.0-0.5 MG/3 ML Neb Soln NEB PRN (04:43)
[2016-09-11] MEDS: amLODIPine 2.5 MG Tab PO SCH (07:10)
[2016-09-11 07:15] VITALS: BP 140/84
[2016-09-11] MEDS: Nicotine 21 MG/24 Hr Patch TRDERM SCH (07:42)
[2016-09-11] MEDS: cefTRIAXone 1 GM Vial IVPUSH SCH (08:00)
[2016-09-11] MEDS: VARENICLINE TARTRATE PO SCH (08:00)
[2016-09-11] MEDS: ALPRAZolam 0.25 MG Tab PO PRN (08:40)
[2016-09-11] MEDS: Albuterol/Ipratropium 3.0-0.5 MG/3 ML Neb Soln NEB SCH (09:02)
[2016-09-11] MEDS: Budesonide 0.5 MG/2 ML Neb Susp NEB SCH (09:03)
--- NOTE | 2016-09-12 08:45 | PCM.DCSUM1 ---
Discharge Summary - Hospital Course Free Text/Narrative:: Patient admitted from clinic with COPD Exacerbation. Was having increasing dyspnea with exertion/wheezing. Had been coughing more frequently, coughing up blood at times. Afebrile. Admitted for respiratory therapy care, oxygen, IV antibiotics per Dr. Nicole. Initial labs all essentially negative with a WBC of 11 and a CRP of 1. - Discharge Data Discharge Date: 09/11/16 Discharge Disposition: Home, Self-Care 01 Condition: Fair - Discharge Diagnosis/Problem(s) (1) COPD (chronic obstructive pulmonary disease) SNOMED Code(s): 91172841 ICD Code: J44.9 - CHRONIC OBSTRUCTIVE PULMONARY DISEASE, UNSPECIFIED Status : Acute Priority: High Qualifiers: COPD type: COPD with acute exacerbation Qualified Code(s): J44.1 - Chronic obstructive pulmonary disease with (acute) exacerbation - Patient Summary/Data Complications: none Consults: Consultations 09/06/16 13:52 Respiratory Care Assess and Treatment [CONS] Routine Hospital Course: Patient had slow improvement overall of her respiratory status. She continued to be short of breath through first 4 days. Initially started on DuoNebs QID and Pulmicort nebs added. She was given Solu Medrol BID for admission day 1, decreased to daily on day 2. [place] did feel that her status had changed and worsened on Saturday so Solu Medrol was increased to every 8 hours. She had a repeat CXR which was unchanged. Labs remained stable through stay. Had hypoxia initially with ambulation, got very dyspneic but that had improved some by discharge date. Sats remained 93% on day of discharge with ambulation. She did continue with chantix and nicotine patch during hospitalization. Anxiety increased through stay due to solu Medrol and not being able to smoke. Advised patient to use Xanax more frequently as it would help her respiratory status in addition to the anxiety. Very hesitant to do so. Discharge home on DuoNebs QID and as needed, up to 6 per day. Xanax every 6 hours as needed. Continue Pulmicort BID. Follow up with Dr. Nicole in one week at the clinic. May start Daliresp at that time. - Patient Instructions Diet: Heart Healthy Diet Activity: As Tolerated Notify Provider of: Fever - Discharge Plan Prescriptions/Med Rec: ALPRAZolam [Alprazolam] 0.25 mg PO QID PRN #120 tablet PRN Reason: Anxiety Budesonide [Pulmicort] 0.5 mg NEB BIDRT #60 neb Home Medications: Home Meds Albuterol [Proair HFA] 2 puff IH ASDIRECTED PRN 03/05/13 [History] Lidocaine/Prilocaine [Emla Cream] 30 gm TP ASDIRECTED PRN 03/05/13 [History] Naproxen Sodium [Aleve] 220 mg PO QID PRN 03/05/13 [History] Albuterol/Ipratropium [DuoNeb 3.0-0.5 MG/3 ML] 3 ml INH Q4H 01/02/16 [History] amLODIPine [Norvasc] 5 mg PO DAILY 07/05/16 [History] Varenicline Tartrate [Chantix] 1 tab PO BID 09/06/16 [History] ALPRAZolam [Alprazolam] 0.25 mg PO QID PRN #120 tablet 09/11/16 [Rx] Budesonide [Pulmicort] 0.5 mg NEB BIDRT #60 neb 09/11/16 [Rx] Referrals: Gaston Nicole MD [Primary Care Provider] - (Follow up with Dr. Nicole in one week) - Discharge Summary/Plan Comment DC Time >30 min.: No Discharge Summary/Plan Comment: Discharge home on DuoNebs QID, Pulmicort, Xanax as needed. See Dr. Nicole in one week. - General Info Date of Service: 09/11/16 Admission Dx/Problem (Free Text: COPD Exacerbation Functional Status: Reports: pain controlled, tolerating diet, ambulating - Review of Systems General: Reports: Weakness, Fatigue. Denies: Fever HEENT: Reports: no symptoms Pulmonary: Reports: shortness of breath, cough, wheezing Cardiovascular: Reports: Edema. Denies: Chest Pain, Lightheadedness Gastrointestinal: Denies: Abdominal pain, Nausea, Vomiting Genitourinary: Reports: no symptoms Musculoskeletal: Reports: foot pain, joint pain Skin: Reports: no symptoms Neurological: Reports: No Symptoms - Patient Data Vitals - Most Recent: Last Vital Signs Temp 96.5 F 09/11/16 08:00 Pulse 77 09/11/16 08:00 Resp 20 09/11/16 08:00 BP 140/84 09/11/16 08:00 Pulse Ox 97 09/11/16 08:00 Weight - Most Recent: 163 lb 6.4 oz Med Orders - Current: Current Medications Discontinued Medications Acetaminophen (Tylenol) 650 mg PO Q4H PRN PRN Reason: Pain (Mild 1-3)/fever Albuterol (Proventil Neb Soln) 2.5 mg NEB QIDRT PRN PRN Reason: Shortness of Breath Last Admin: 09/06/16 21:43 Dose: 2.5 mg Albuterol (Proventil Neb Soln) 2.5 mg NEB Q4H PRN PRN Reason: Shortness of Breath Last Admin: 09/11/16 00:58 Dose: 2.5 mg Albuterol/Ipratropium (Duoneb 3.0-0.5 Mg/3 Ml) 3 ml NEB QIDRT [facility] Last Admin: 09/06/16 11:44 Dose: 3 ml Albuterol/Ipratropium (Duoneb 3.0-0.5 Mg/3 Ml) Confirm Administered Dose 3 ml .ROUTE .STK-MED ONE Stop: 09/06/16 11:48 Last Admin: 09/06/16 11:45 Dose: Not Given Albuterol/Ipratropium (Duoneb 3.0-0.5 Mg/3 Ml) 3 ml NEB QIDRT [facility] Last Admin: 09/11/16 09:02 Dose: 3 ml Albuterol/Ipratropium (Duoneb 3.0-0.5 Mg/3 Ml) 3 ml NEB Q4H PRN PRN Reason: Dyspnea Last Admin: 09/11/16 04:43 Dose: 3 ml Alprazolam (Xanax) 0 mg PO Q6H PRN PRN Reason: Anxiety Last Admin: 09/11/16 08:40 Dose: 0.25 mg Amlodipine Besylate (Norvasc) 5 mg PO DAILY [facility] Last Admin: 09/07/16 07:01 Dose: Not Given Amlodipine Besylate (Norvasc) 5 mg PO 0700 [facility] Last Admin: 09/11/16 07:10 Dose: 5 mg Budesonide (Pulmicort) 0.5 mg NEB BIDRT [facility] Last Admin: 09/11/16 09:03 Dose: 0.5 mg Budesonide (Pulmicort) Confirm Administered Dose 0.5 mg .ROUTE .STK-MED ONE Stop: 09/06/16 11:48 Last Admin: 09/06/16 11:45 Dose: Not Given Ceftriaxone Sodium (Rocephin) 1 gm IVPUSH Q24H [facility] Last Admin: 09/11/16 08:00 Dose: 1 gm Enoxaparin Sodium (Lovenox) 40 mg SUBCUT Q24H [facility] Last Admin: 09/10/16 19:51 Dose: Not Given Azithromycin 500 mg/ Sodium (Chloride) 250 mls @ 250 mls/hr IV Q24H [facility] Last Admin: 09/10/16 08:03 Dose: 250 mls/hr Lidocaine/Prilocaine (Emla Crm) 0 gm TOP ONETIME ONE Stop: 09/06/16 11:10 Last Admin: 09/06/16 11:44 Dose: 1 applic Methylprednisolone Sodium Succinate (Solu-Medrol) 125 mg IVPUSH Q12H [facility] Last Admin: 09/06/16 19:33 Dose: 125 mg Methylprednisolone Sodium Succinate (Solu-Medrol) 125 mg IVPUSH ONETIME ONE Stop: 09/06/16 14:01 Last Admin: 09/06/16 14:15 Dose: 125 mg Methylprednisolone Sodium Succinate (Solu-Medrol) 125 mg IVPUSH Q24H [facility] Last Admin: 09/09/16 08:23 Dose: 125 mg Methylprednisolone Sodium Succinate (Solu-Medrol) 125 mg IVPUSH Q8H [facility] Last Admin: 09/10/16 07:54 Dose: 125 mg Naproxen (Naprosyn) 250 mg PO Q6H PRN PRN Reason: Pain Last Admin: 09/10/16 06:57 Dose: 250 mg Nicotine (Habitrol) 14 mg TRDERM Q24H [facility] Last Admin: 09/07/16 09:40 Dose: Not Given Nicotine (Habitrol) 21 mg TRDERM Q24H [facility] Last Admin: 09/11/16 07:42 Dose: 21 mg Ptom(Varenicline Tartrate [Chantix] 1 Tab) 1 tab PO BID [facility] Last Admin: 09/11/16 08:00 Dose: 1 tab Senna (Senna) 8.6 mg PO DAILY PRN PRN Reason: Constipation Last Admin: 09/10/16 19:50 Dose: 8.6 mg Sodium Chloride (Saline Flush) 10 ml FLUSH ASDIRECTED PRN PRN Reason: Keep Vein Open - Exam General: Reports: alert, oriented HEENT: Reports: Mucous membr. moist/pink Neck: Reports: supple Lungs: Reports: Decreased breath sounds, Wheezing Cardiovascular: Reports: Regular Rate, Regular Rhythm Abdomen: Reports: bowel sounds present, soft, no tenderness Extremities: Reports: edema (trace) Skin: Reports: warm, dry Neurological: Reports: no new focal deficit Psy/Mental Status: Reports: alert *Q Meaningful Use (DIS) - VTE *Q VTE Criteria *Q: - Stroke *Q Stroke Criteria *Q: - AMI *Q AMI Criteria *Q:
== END 2016-09-11 10:25 | disposition home or self-care (01) | DRG 191 ==
LOC: UNDOADMIN 10:56 → CC.MS 10:56
PROVIDERS: ADMIT Family Medicine; ATTEND Family Medicine
DX: J44.1 Chronic obstructive pulmonary disease with (acute) exacerbation (principal); R04.2 Hemoptysis; F17.210 Nicotine dependence, cigarettes, uncomplicated; R60.0 Localized edema; R09.02 Hypoxemia
CPT/HCPCS: 36415; 71020; 76536; 80048; 80053; 83880; 84484; 85025; 85379; 86140; 93306; 94060; 94640; 94640-76; A9270-GY; J0456; J0696; J2930; J7050; J7620-GY

== ENCOUNTER 2017-01-14 13:50 | Inpatient (IN) | payer MEDICARE, OTHER ==
[~2017-01-14 13:50] MED LIST: Albuterol/Ipratropium 3.0-0.5 MG/3 ML Neb Soln ONE
[2017-01-14] MEDS ORDERED: methylPREDNISolone Sodium Succinate 125 MG/2 ML SDV IVPUSH ONE (14:08)
[2017-01-14] MEDS ORDERED: Albuterol/Ipratropium 3.0-0.5 MG/3 ML Neb Soln NEB STA (14:18)
--- NOTE | 2017-01-14 14:20 | EDM.PDOC ---
ED HPI GENERAL MEDICAL PROBLEM - General Chief Complaint: Respiratory Problem Stated Complaint: CAME FROM THE CLINIC Time Seen by Provider: 01/14/17 14:06 Source of Information: Reports: Patient, Family, Old Records, RN History Limitations: Reports: Respiratory Distress - History of Present Illness INITIAL COMMENTS - FREE TEXT/NARRATIVE: Patient is an elderly female with severe COPD. She is a smoker, not on oxygen at home. She woke up with a sore throat about 199 morning and has become progresively more short of breath with increased coughing since that time. Was brought into ER today by her . Has been using dounebs more frequently. Onset: Gradual Onset Date: 01/13/17 Onset Time: 02:00 Duration: Hour(s):, Getting Worse, Recurring Location: Reports: Chest Quality: Reports: Same as Previous Episode Severity: Severe Improves with: Reports: Medication (only improves slightly with nebulizer) Worsens with: Reports: Movement Associated Symptoms: Reports: Cough, cough w sputum, Shortness of Breath. Denies: Confusion, Chest Pain, Nausea/Vomiting, Weakness Treatments REEL WINDER: Reports: Other (see below) (nebulizer treatments) HEADACHE AND CHEST Pain Score (Numeric/FACES): 8 - Related Data Allergies Allergy/AdvReac Type Severity Reaction Status Date / Time cephalexin [Cephalexin] Allergy Vomiting Verified 12/31/16 13:22 chlorothiazide Allergy Vomiting Verified 12/31/16 13:22 [Chlorothiazide] chlorthalidone Allergy Vomiting Verified 12/31/16 13:22 clindamycin Allergy Vomiting Verified 12/31/16 13:22 heparin Allergy Vomiting Verified 12/31/16 13:22 levofloxacin [From Levaquin] Allergy Other Verified 12/31/16 13:22 Penicillins Allergy Vomiting Verified 12/31/16 13:22 prednisone Allergy Vomiting Verified 12/31/16 13:22 all narcotics Allergy Vomiting Uncoded 12/31/16 13:22 bee sting Allergy Cannot Uncoded 12/31/16 13:22 Remember magnesium Allergy Vomiting Uncoded 12/31/16 13:22 Home Meds: Home Meds Albuterol [Proair HFA] 2 puff IH ASDIRECTED PRN 03/05/13 [History] Lidocaine/Prilocaine [Emla Cream] 30 gm TP ASDIRECTED PRN 03/05/13 [History] Naproxen Sodium [Aleve] 220 mg PO QID PRN 03/05/13 [History] Albuterol/Ipratropium [DuoNeb 3.0-0.5 MG/3 ML] 3 ml INH Q4H 01/02/16 [History] amLODIPine [Norvasc] 5 mg PO DAILY 07/05/16 [History] ALPRAZolam [Alprazolam] 0.25 mg PO QID PRN #120 tablet 09/11/16 [Rx] Budesonide [Pulmicort] 0.5 mg NEB BIDRT #60 neb 09/11/16 [Rx] Past Medical History HEENT History: Reports: Allergic Rhinitis, Cataract, Sinusitis Cardiovascular History: Reports: Hypertension Respiratory History: Reports: COPD, Pneumonia, Recurrent, SOB Genitourinary History: Reports: UTI, Recurrent 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 History: Reports: Other (See Below) Other OB/BYN History: fallopian tube cancer Psychiatric History: Reports: Anxiety Oncologic (Cancer) History: Reports: Other (See Below) Other Oncologic History: fallopian tube cancer - Past Surgical History HEENT Surgical History: Reports: Cataract Surgery Cardiovascular Surgical History: Reports: None Female Surgical History: Reports: Hysterectomy Social & Family History - Tobacco Use Smoking Status *Q: Current Every Day Smoker Years of Tobacco use: 46 Packs/Tins Daily: 0.6 - Caffeine Use Caffeine Use: Reports: Coffee - Alcohol Use Days Per Week of Alcohol Use: 0 - Recreational Drug Use Recreational Drug Use: No ED ROS GENERAL - Review of Systems Review Of Systems: See Below Constitutional: Reports: Weakness, Diaphoresis, Weight Gain (since being on steroids recently) HEENT: Reports: Rhinitis, Throat Pain (sore throat) Respiratory: Reports: Shortness of Breath, Wheezing, Cough, Sputum Cardiovascular: Reports: Dyspnea on Exertion. Denies: Chest Pain Endocrine: Reports: No Symptoms GI/Abdominal: Reports: No Symptoms : Reports: No Symptoms Musculoskeletal: Reports: No Symptoms Skin: Reports: No Symptoms Neurological: Reports: No Symptoms Psychiatric: Reports: Anxiety Hematologic/Lymphatic: Reports: No Symptoms Immunologic: Reports: No Symptoms ED EXAM, GENERAL - Physical Exam Exam: See Below Exam Limited By: Respiratory Distress General Appearance: Moderate Distress (secondary to breathing) Ears: Normal External Exam, Normal Canal, Hearing Grossly Normal, Normal TMs Nose: Normal Inspection, Normal Mucosa, No Blood Throat/Mouth: Normal Inspection, Other (oral mucous membranes tacky, posterior oropharynx reddened but no exudate) Neck: Normal Inspection, Supple, Non-Tender, Full Range of Motion Respiratory/Chest: Respiratory Distress, Decreased Breath Sounds, Wheezing, Accessory Muscle Use, Prolonged Expiration, Other (pursed lip breathing) Cardiovascular: Normal Peripheral Pulses, Regular Rate, Rhythm, No Edema, No Gallop, No JVD, No Murmur, No Rub GI/Abdominal: Normal Bowel Sounds, Soft, Non-Tender, No Organomegaly, No Distention, No Abnormal Bruit, No Mass (Female) Exam: Deferred Rectal (Female) Exam: Deferred Back Exam: Normal Inspection, Full Range of Motion, NT Extremities: Normal Inspection, Normal Range of Motion, Non-Tender, Normal Capillary Refill, No Pedal Edema Neurological: Alert, Oriented, CN II-XII Intact, Normal Cognition, Normal Gait, Normal Reflexes, No Motor/Sensory Deficits Psychiatric: Anxious Skin Exam: Warm, Dry, Intact, Normal Color, No Rash Lymphatic: No Adenopathy Course - Vital Signs Last Recorded V/S: Last Vital Signs Temp 36.5 C 01/14/17 14:00 Pulse 114 H 01/14/17 14:23 Resp 36 H 01/14/17 14:23 BP 140/87 01/14/17 14:00 Pulse Ox 94 L 01/14/17 14:23 - Orders/Labs/Meds Orders: Active Orders 24 hr Category Date Time Status RT Aerosol Therapy [RC] ASDIRECTED Care 01/14/17 14:18 Active RT Aerosol Therapy [RC] ASDIRECTED Care 01/14/17 15:14 Active Chest 2V [CR] Stat Exams 01/14/17 14:16 Taken Labs: Laboratory Tests 01/14/17 01/14/17 Range/Units 14:17 14:20 WBC 12.1 H (5.0-10.0) 10^3/uL RBC 5.09 (4.00-5.50) 10^6/uL Hgb 16.7 H (12.0-16.0) g/dL Hct 49.7 H (37.0-47.0) % MCV 97.6 H (82.0-94.0) fL MCH 32.8 H (27.0-32.0) pg MCHC 33.6 (33.0-38.0) g/dL RDW Coeff of Lucille 13.6 (11.0-15.0) % Plt Count 234 (150-400) 10^3/uL Neut % (Auto) 72.6 (35-85) % Lymph % (Auto) 16.2 (10-55) % Todd % (Auto) 9.6 (0-16) % Eos % (Auto) 1.2 (0-5) % Baso % (Auto) 0.4 (0-3) % Neut # (Auto) 8.75 H (1.80-7.00) 10^3/uL Lymph # (Auto) 1.95 (1.00-4.80) 10^3/uL Todd # (Auto) 1.16 H (0.00-0.80) 10^3/uL Eos # (Auto) 0.14 (0.00-0.45) 10^3/uL Baso # (Auto) 0.05 10^3/uL Sodium 138 (136-145) mEq/L Potassium 4.0 (3.5-5.0) mEq/L Chloride 100 (98-106) mEq/L Carbon Dioxide 27 (21-32) mmol/L BUN 15 (7-18) mg/dL Creatinine 0.9 (0.6-1.0) mg/dL Est Cr Clr Drug Dosing 51.66 mL/min Estimated GFR (MDRD) > 60 (>=60) mL/min Glucose 117 H (75-99) mg/dL Calcium 9.2 (8.4-10.1) mg/dL Total Bilirubin 0.6 (0.0-1.0) mg/dL AST 39 H (15-37) U/L ALT 68 (12-78) U/L Alkaline Phosphatase 76 (46-116) U/L C-Reactive Protein 1.1 H (0.2-0.8) mg/dL NT-Pro-B Natriuret Pep 224 (0-1000) pg/mL Total Protein 8.0 (6.4-8.2) g/dL Albumin 4.1 (3.4-5.0) g/dL Meds: Medications Discontinued Medications Generic Name Dose Route Start Last Admin Trade Name Freq PRN Reason Stop Dose Admin Albuterol 1.25 mg 01/14/17 15:13 01/14/17 15:16 Proventil Neb Soln NEB 01/14/17 15:14 1.25 mg STAT ONE Administration Albuterol/Ipratropium Confirm 01/14/17 13:47 01/14/17 14:18 Duoneb 3.0-0.5 Mg/3 Ml Administered 01/14/17 13:48 Not Given Dose 3 ml .ROUTE .STK-MED ONE Albuterol/Ipratropium 3 ml 01/14/17 14:18 01/14/17 14:00 Duoneb 3.0-0.5 Mg/3 Ml NEB 01/14/17 14:19 3 ml ONETIME STA Administration Lorazepam 0.5 mg 01/14/17 14:50 01/14/17 15:02 Ativan IVPUSH 01/14/17 14:51 0.5 mg ONETIME ONE Administration Methylprednisolone Sodium Succinate 125 mg 01/14/17 14:08 01/14/17 14:17 Solu-Medrol IVPUSH 01/14/17 14:09 125 mg Q12H ONE Administration - Radiology Interpretation Free Text/Narrative:: Chest xray showed no infiltrate or failure with radiology over read pending. - Re-Assessments/Exams Free Text/Narrative Re-Assessment/Exam: 01/14/17 15:46 Patient was in respiratory distress on arrival to ER with increased respiratory rate and increased work of breathing, purse lip breathing and minimal air movement . She was immediately given a douneb with modest improvement noted. Given solumedrol and ativan for anxiety. Labs and rays done and oxygen applied. Strep and influenza are negative and chest xray does not show pneumonia. This is likely a COPD exacerbatio. Recomend hospital admission and treatment with antibiotics, pulmonary toilet, telemetry and oxygen. Notified Jaquie, patients PCP of admission. Patient verbalized understnding and agreed with treatment plan. Departure - Departure Time of Disposition: 15:30 Disposition: DC/Tfer to Acute Hospital 02 Condition: Fair Clinical Impression: COPD with acute exacerbation, Anxiety - Discharge Information - Problem List & Annotations (1) Anxiety SNOMED Code(s): 51082472 Code(s): F41.9 - ANXIETY DISORDER, UNSPECIFIED Status: Acute Priority: High Current Visit: Yes Onset Date: 04/08/14 (2) COPD with acute exacerbation SNOMED Code(s): 099867151 Code(s): J44.1 - CHRONIC OBSTRUCTIVE PULMONARY DISEASE W (ACUTE) EXACERBATION Status: Acute Priority: High Current Visit: Yes - Problem List Review Problem List Initiated/Reviewed/Updated: Yes - My Orders Last 24 Hours: My Active Orders 01/14/17 14:16 Chest 2V [CR] Stat 01/14/17 14:18 RT Aerosol Therapy [RC] ASDIRECTED 01/14/17 15:14 RT Aerosol Therapy [RC] ASDIRECTED - Assessment/Plan Last 24 Hours: My Active Orders 01/14/17 14:16 Chest 2V [CR] Stat 01/14/17 14:18 RT Aerosol Therapy [RC] ASDIRECTED 01/14/17 15:14 RT Aerosol Therapy [RC] ASDIRECTED Plan: Will admit to acute and treat for acute COPD exacerbation with antibiotics, nebs and pulmonary hygiene. Will keep on telemetry to monitor cardiac condition. Will treat anxiety with prn ativan. Will monitor condition closely and make change in plan of care as needed.
[2017-01-14] MEDS ORDERED: LORazepam 2 MG/ML SDV IVPUSH ONE (14:25)
[2017-01-14] MEDS ORDERED: LORazepam 2 MG/ML Syringe IVPUSH ONE (14:50)
[2017-01-14 14:55] LABS: CHLORIDE,CL 100 mEq/L (98-106); SODIUM,NA 138 mEq/L (136-145)
[2017-01-14] MEDS ORDERED: Albuterol 0.042% 1.25 MG/3 ML Neb Soln NEB ONE (15:13)
[2017-01-14] MEDS ORDERED: cefTRIAXone 1 GM Vial IVPUSH SCH (16:00)
[2017-01-14] MEDS ORDERED: Albuterol/Ipratropium 3.0-0.5 MG/3 ML Neb Soln INH SCH (16:00)
[2017-01-14] MEDS ORDERED: Azithromycin 500 MG in Sodium Chloride 0.9% 250 ML IV SCH (16:00)
[2017-01-14] MEDS ORDERED: NAPROXEN SODIUM 220 MG PO PRN (16:01)
[2017-01-14] MEDS ORDERED: ALPRAZolam 0.25 MG Tab PO PRN ×2 (16:01→16:30)
[2017-01-14] MEDS ORDERED: LORazepam 2 MG/ML Syringe IM PRN (16:04)
[2017-01-14] MEDS ORDERED: Nicotine 21 MG/24 Hr Patch TOP SCH (16:30)
[2017-01-14] MEDS ORDERED: Albuterol 8 GM Inhaler INH PRN (16:31)
[2017-01-14] MEDS ORDERED: Albuterol/Ipratropium 3.0-0.5 MG/3 ML Neb Soln ONE (16:40)
[2017-01-14 17:35] LABS: O2 DELIVERY DEVICE NASAL CANNULA
[2017-01-14 17:36] LABS: PCO2 ARTERIAL 46 mm/Hg0 (35-45); PO2 ARTERIAL 65 mm/Hg (80-100)
[2017-01-14 17:37] LABS: O2 SATURATION ARTERIAL 91 % (95-98)
[2017-01-14] MEDS ORDERED: Albuterol 0.083% 2.5 MG/3 ML Neb Soln NEB PRN (17:53)
[2017-01-14] MEDS ORDERED: Albuterol 0.083% 2.5 MG/3 ML Neb Soln ONE (18:16)
--- NOTE | 2017-01-14 18:29 | PCM.DCSUM1 ---
Discharge Summary - Hospital Course Free Text/Narrative:: Patient was admitted earlier today for a COPD exacerbation but has failed to improve, in fact has worsened over the last few hours in spite of nebs, oxygen and medications. I recommend transfer to a higher level of care and patient is agreeable at this time. She is getting very fatigued and the concern is that she will develop respiratory failure. HPI Initial Comments: See below - Discharge Data Discharge Date: 01/14/17 Discharge Disposition: DC/Tfer to Acute Hospital 02 Condition: Poor - Discharge Diagnosis/Problem(s) (1) Anxiety SNOMED Code(s): 07422740 ICD Code: F41.9 - ANXIETY DISORDER, UNSPECIFIED Status: Acute Priority: High Onset Date: 04/08/14 (2) COPD with acute exacerbation SNOMED Code(s): 438552327 ICD Code: J44.1 - CHRONIC OBSTRUCTIVE PULMONARY DISEASE W (ACUTE) EXACERBATION Status: Acute Priority: High - Patient Summary/Data Complications: Worsening respiratory distress with concern for development of complete respiratory failure. Consults: Contacted [facility] and spoke to Dr York who agreed to accept patient in transfer for further evaluation and treatment. Labs Pending at D/C: none Hospital Course: Patient was admitted earlier today was an acute exacerbation of COPD. She was given nebs, put on oxygen and started on antibiotics and solumedrol. She was becoming progressively more dyspneic, anxious and fatigued as time went on. She was not having the expected improvement so she was rechecked by this provider at about 5 PM. Her respiratory rate and work of breathing was worsening instead of improving. She is still a full code. Discussion was held with the patient regarding my recombination for transfer to a higher level of care where more respiratory support is available is she develops full blown respiratory failure. We discussed the risks and benefits of transfer. Benefits include higher level of care with pulmonology support and ventilator, CPAP/BIPAP if needed, ICU if needed. Risks include worsening condition if not transferred, , travel accidents and weather problems. Patient verbalized understanding of transfer and is agreeable to transfer. I contacted Dr York , hospitalist at [facility] who agreed to accept patient in transfer. She will be transported by air ambulance. Prior to discharge, patient was re-evaluated. She is an alert elderly female in Respiratory distress with accessory muscle use, resps of 40 a minute and minimal air movement. She is using pursed lip breathing. Lungs are extremely diminished bilat. Vitals afebril, 132/86, Pulse 108, O2 sat 96% on 2 liters by NC. - Discharge Plan Home Medications: Home Meds Albuterol [Proair HFA] 2 puff IH Q4H PRN 03/05/13 [History] Lidocaine/Prilocaine [Emla Cream] 30 gm TP ASDIRECTED PRN 03/05/13 [History] Naproxen Sodium [Aleve] 220 mg PO QID PRN 03/05/13 [History] Albuterol/Ipratropium [DuoNeb 3.0-0.5 MG/3 ML] 3 ml INH QID PRN 01/02/16 [ History] amLODIPine [Norvasc] 5 mg PO 1900 07/05/16 [History] ALPRAZolam [Alprazolam] 0.25 mg PO QID PRN #120 tablet 09/11/16 [Rx] Budesonide [Pulmicort] 0.5 mg NEB 0700,1900 01/14/17 [History] Nicotine [Nicotine Patch] 21 mg TOP DAILY 01/14/17 [History] Forms: ED Department Discharge - Discharge Summary/Plan Comment DC Time >30 min.: Yes (Approximately one hour spent with patient, phone calls and charting.) - Patient Data Vitals - Most Recent: Last Vital Signs Temp 36.8 C 01/14/17 17:31 Pulse 105 H 01/14/17 17:31 Resp 40 H 01/14/17 17:31 BP 156/88 H 01/14/17 17:31 Pulse Ox 96 01/14/17 17:31 Weight - Most Recent: 77.111 kg Lab Results - Last 24 hrs: Laboratory Results - last 24 hr 01/14/17 01/14/17 01/14/17 Range/Units 17:34 17:34 17:39 D-Dimer, Quantitative 0.28 (0.00-0.50) ABG pH 7.36 (7.35-7.45) ABG pCO2 46 H (35-45) mm/Hg0 ABG pO2 65 L (80-100) mm/Hg ABG HCO3 26.0 (22.0-26.0) mm/L ABG O2 Saturation 91 L (95-98) % ABG Base Excess 1.0 (-2.0-3.0) O2 Delivery Device Nasal cannula Oxygen Flow Rate 2.0 Lactate Dehydrogenase 260 H (100-190) U/L Creatine Kinase 154 (21-215) U/L Troponin I < 0.017 (0.00-0.06) ng/mL Med Orders - Current: Current Medications Albuterol (Ventolin Hfa) 0 gm INH Q4H PRN PRN Reason: Shortness of Breath Albuterol (Proventil Neb Soln) 2.5 mg NEB Q1H PRN PRN Reason: Dyspnea Last Admin: 01/14/17 18:04 Dose: 2.5 mg Albuterol/Ipratropium (Duoneb 3.0-0.5 Mg/3 Ml) 3 ml INH Q4H ALE Last Admin: 01/14/17 16:44 Dose: 3 ml Alprazolam (Xanax) 0 mg PO Q6H PRN PRN Reason: Anxiety Last Admin: 01/14/17 16:52 Dose: 0.25 mg Amlodipine Besylate (Norvasc) 5 mg PO 1900 ALE Budesonide (Pulmicort) 0.5 mg NEB 0700,1900 [facility] Ceftriaxone Sodium (Rocephin) 1 gm IVPUSH Q24H [facility] Last Admin: 01/14/17 16:44 Dose: 1 gm Azithromycin 500 mg/ Sodium (Chloride) 250 mls @ 250 mls/hr IV Q24H [facility] Last Admin: 01/14/17 16:54 Dose: 250 mls/hr Lorazepam (Ativan) 0.5 mg IM Q6H PRN PRN Reason: Anxiety Stop: 01/19/17 23:59 Last Admin: 01/14/17 18:04 Dose: 0.5 mg Methylprednisolone Sodium Succinate (Solu-Medrol) 80 mg IVPUSH Q8H [facility] Nicotine (Habitrol) 21 mg TOP DAILY [facility] Last Admin: 01/14/17 16:48 Dose: Not Given Ptom (Naproxen Sodium [Aleve] 220 Mg) 220 mg PO QID PRN PRN Reason: Pain Discontinued Medications Albuterol (Proventil Neb Soln) 1.25 mg NEB STAT ONE Stop: 01/14/17 15:14 Last Admin: 01/14/17 15:16 Dose: 1.25 mg Albuterol (Proventil Neb Soln) Confirm Administered Dose 2.5 mg .ROUTE .STK-MED ONE Stop: 01/14/17 18:17 Last Admin: 01/14/17 18:06 Dose: Not Given Albuterol/Ipratropium (Duoneb 3.0-0.5 Mg/3 Ml) Confirm Administered Dose 3 ml .ROUTE .STK-MED ONE Stop: 01/14/17 13:48 Last Admin: 01/14/17 14:18 Dose: Not Given Albuterol/Ipratropium (Duoneb 3.0-0.5 Mg/3 Ml) 3 ml NEB ONETIME STA Stop: 01/14/17 14:19 Last Admin: 01/14/17 14:00 Dose: 3 ml Albuterol/Ipratropium (Duoneb 3.0-0.5 Mg/3 Ml) Confirm Administered Dose 3 ml .ROUTE .STK-MED ONE Stop: 01/14/17 16:41 Last Admin: 01/14/17 16:48 Dose: Not Given Alprazolam (Xanax) 0.25 mg PO QID PRN PRN Reason: Anxiety Lorazepam (Ativan) 0.5 mg IVPUSH ONETIME ONE Stop: 01/14/17 14:51 Last Admin: 01/14/17 15:02 Dose: 0.5 mg Methylprednisolone Sodium Succinate (Solu-Medrol) 125 mg IVPUSH Q12H ONE Stop: 01/14/17 14:09 Last Admin: 01/14/17 14:17 Dose: 125 mg *Q Meaningful Use (DIS) - VTE *Q VTE Criteria *Q: - Stroke *Q Stroke Criteria *Q: - AMI *Q AMI Criteria *Q:
[2017-01-14 18:30] VITALS: BP 148/82
[2017-01-14] MEDS ORDERED: Budesonide 0.5 MG/2 ML Neb Susp NEB SCH (19:00)
[2017-01-14] MEDS ORDERED: amLODIPine 2.5 MG Tab PO SCH (19:00)
[2017-01-15] MEDS ORDERED: methylPREDNISolone Sodium Succinate 125 MG/2 ML SDV IVPUSH SCH
== END 2017-01-14 19:00 | DRG 192 ==
LOC: CC.ED 13:50 → CC.MS 15:27
PROVIDERS: ADMIT Nurse Practitioner Family; ATTEND Family Medicine
DX: J44.1 Chronic obstructive pulmonary disease with (acute) exacerbation (principal); F17.210 Nicotine dependence, cigarettes, uncomplicated; J30.9 Allergic rhinitis, unspecified; I10 Essential (primary) hypertension; Z87.01 Personal history of pneumonia (recurrent); F41.9 Anxiety disorder, unspecified; Z79.899 Other long term (current) drug therapy; Z88.5 Allergy status to narcotic agent; Z88.0 Allergy status to penicillin; Z88.8 Allergy status to other drugs, medicaments and biological substances; Z88.1 Allergy status to other antibiotic agents; Z91.030 Bee allergy status
CPT/HCPCS: 71020; 96374; 96375; 99285; 94640 ×2; 85025; 36600; 36415; 80053; 83880; 86140; 87804 ×2; 87430; J2930; J2060; 82550; 82803; 83615; 84484; 85379; A9270-GY; J0456; J0696; J7050; J7620-GY

== ENCOUNTER 2017-09-24 20:27 | Emergency (ER) | payer MEDICARE, OTHER ==
[2017-09-24 20:32] VITALS: BP 152/94
[2017-09-24] MEDS: ALPRAZolam 0.25 MG Tab PO ONE (22:43)
--- NOTE | 2017-09-24 22:51 | EDM.PDOC ---
ED HPI GENERAL MEDICAL PROBLEM - General Chief Complaint: Abdominal Pain Stated Complaint: constipation Time Seen by Provider: 09/24/17 20:40 Source of Information: Reports: Patient History Limitations: Reports: No Limitations - History of Present Illness INITIAL COMMENTS - FREE TEXT/NARRATIVE: Patient presents to ER with complaints of constipation. States does deal with this on a daily basis but having had recent surgery exacerbated the problem. She typically takes senna daily but that has not been helping. Patient recently had a lumpectomy for breast cancer. Has not had a BM now for about 2 weeks. She used a dulcolax suppository about 90 minutes prior to coming here without results. She has not taken any pain pills since surgery as she states she really hasn't had any pain and narcotics don't agree with her. She does admit to abdominal cramping now. Has been eating and drinking well without nausea at home. No fevers. No urinary complaints. Incisions have been healing well. Onset: Gradual Duration: Day(s): Location: Reports: Abdomen Quality: Reports: Ache, Other (cramping) Severity: Moderate Associated Symptoms: Reports: Shortness of Breath (chronic shortness of breath) . Denies: Chest Pain, Cough, Fever/Chills, Loss of Appetite, Malaise, Nausea/ Vomiting, Weakness Treatments FACILITY PRACTICE SPECIALIST: Reports: Other (see below) Other Treatments FACILITY PRACTICE SPECIALIST: laxatives Abdominal Pain Score (Numeric/FACES): 8 - Related Data Allergies Allergy/AdvReac Type Severity Reaction Status Date / Time cephalexin [Cephalexin] Allergy Vomiting Verified 09/24/17 20:32 chlorothiazide Allergy Vomiting Verified 09/24/17 20:32 [Chlorothiazide] chlorthalidone Allergy Vomiting Verified 09/24/17 20:32 clindamycin Allergy Vomiting Verified 09/24/17 20:32 heparin Allergy Vomiting Verified 09/24/17 20:32 levofloxacin [From Levaquin] Allergy Other Verified 09/24/17 20:32 Penicillins Allergy Vomiting Verified 09/24/17 20:32 prednisone Allergy Vomiting Verified 09/24/17 20:32 all narcotics Allergy Vomiting Uncoded 12/31/16 13:22 bee sting Allergy Cannot Uncoded 12/31/16 13:22 Remember magnesium Allergy Vomiting Uncoded 12/31/16 13:22 Home Meds: Home Meds Albuterol [Proair HFA] 2 puff IH Q4H PRN 03/05/13 [History] Naproxen Sodium [Aleve] 220 mg PO QID PRN 03/05/13 [History] Albuterol/Ipratropium [DuoNeb 3.0-0.5 MG/3 ML] 3 ml INH QID PRN 01/02/16 [ History] amLODIPine [Norvasc] 5 mg PO 1900 07/05/16 [History] ALPRAZolam [Alprazolam] 0.25 mg PO QID PRN #120 tablet 09/11/16 [Rx] Budesonide [Pulmicort] 0.5 mg NEB 0700,1900 01/14/17 [History] Nicotine [Nicotine Patch] 21 mg TOP DAILY 01/14/17 [History] Arformoterol [Brovana] 1 ampule INH BID 09/24/17 [History] Past Medical History HEENT History: Reports: Allergic Rhinitis, Cataract, Sinusitis Cardiovascular History: Reports: Hypertension Respiratory History: Reports: COPD, Pneumonia, Recurrent, SOB Genitourinary History: Reports: UTI, Recurrent 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 (See Below) 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 GROUP 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 History: fallopian tube cancer Psychiatric History: Reports: Anxiety Oncologic (Cancer) History: Reports: Other (See Below) Other Oncologic History: fallopian tube cancer - Past Surgical History HEENT Surgical History: Reports: Cataract Surgery Cardiovascular Surgical History: Reports: None Female Surgical History: Reports: Hysterectomy Social & Family History - Tobacco Use Smoking Status *Q: Current Every Day Smoker - Caffeine Use Caffeine Use: Reports: Coffee ED ROS GENERAL - Review of Systems Review Of Systems: See Below Constitutional: Denies: Fever, Chills, Malaise, Weakness, Decreased Appetite HEENT: Reports: No Symptoms Respiratory: Reports: Shortness of Breath. Denies: Cough Cardiovascular: Reports: Edema. Denies: Chest Pain, Lightheadedness Endocrine: Reports: Fatigue GI/Abdominal: Reports: Abdominal Pain, Constipation. Denies: Nausea, Vomiting : Reports: No Symptoms Musculoskeletal: Reports: No Symptoms Skin: Reports: Other (incision to right breast and right axilla) Neurological: Reports: No Symptoms ED EXAM, GI/ABD - Physical Exam Exam: See Below Exam Limited By: No Limitations General Appearance: Alert, WD/WN, No Apparent Distress Ears: Normal External Exam, Normal TMs Nose: Normal Inspection, Normal Mucosa, No Blood Throat/Mouth: Normal Inspection, Normal Oropharynx Head: Normocephalic Neck: Normal Inspection, Supple, Non-Tender Respiratory/Chest: No Respiratory Distress, Lungs Clear, Normal Breath Sounds Cardiovascular: Regular Rate, Rhythm GI/Abdominal Exam: Normal Bowel Sounds, Soft, Distended, Tender Extremities: Normal Inspection, Pedal Edema (1+) Neurological: Alert, Oriented Course - Vital Signs Last Recorded V/S: Last Vital Signs Temp 97.0 F 09/24/17 20:29 Pulse 105 H 09/24/17 20:29 Resp 16 09/24/17 20:29 BP 152/94 H 09/24/17 20:29 Pulse Ox 96 09/24/17 20:29 - Orders/Labs/Meds Meds: Medications Discontinued Medications Generic Name Dose Route Start Last Admin Trade Name Freq PRN Reason Stop Dose Admin Alprazolam 0.25 mg 09/24/17 22:34 Xanax PO 09/24/17 22:35 NOW ONE - Re-Assessments/Exams Free Text/Narrative Re-Assessment/Exam: 09/24/17 Patient was initially given a fleets enema with minimal results. Soap suds enema x2 given with good results. Does continue to have some mild abdominal cramping but improved. Departure - Departure Time of Disposition: 22:50 Disposition: Home, Self-Care 01 Condition: Good Clinical Impression: Constipation - Discharge Information Forms: ED Department Discharge Additional Instructions: 1. Push fluids 2. Dulcolax tab tonight and in am 3. Continue Senna or consider Miralax 17 gm daily 4. Follow up if continue to have persisting concerns.
== END 2017-09-24 23:02 | disposition home or self-care (01) ==
LOC: CC.ED 20:27
DX: K59.00 Constipation, unspecified (principal); F17.210 Nicotine dependence, cigarettes, uncomplicated; J44.9 Chronic obstructive pulmonary disease, unspecified; I10 Essential (primary) hypertension; F41.9 Anxiety disorder, unspecified; Z79.899 Other long term (current) drug therapy
CPT/HCPCS: 99283; A9270-GY

== ENCOUNTER 2017-11-10 01:10 | Observation (INO) | payer MEDICARE, OTHER ==
[2017-11-10] MEDS ORDERED: Furosemide 40 MG/4 ML VIAL IVPUSH SCH (01:45)
--- NOTE | 2017-11-10 01:46 | EDM.PDOC ---
ED HPI GENERAL MEDICAL PROBLEM - General Chief Complaint: General Stated Complaint: SOB Time Seen by Provider: 11/10/17 01:30 Source of Information: Reports: Patient History Limitations: Reports: No Limitations - History of Present Illness INITIAL COMMENTS - FREE TEXT/NARRATIVE: Patient presents to ER with complaints of shortness of breath. States awoke suddenly feeling more short of breath than her usual. She took a nebulizer and several puffs on her inhaler and didn't see much relief. She relates that she has gained over 10# since receiving chemo on . She relates that in [place] her weight was 170# and when she got home, it was 180#. She called [facility] and they said she may be up on her weight due to fluids that were infused. She is worried that the chemo could potentially be hard on her hard. She did come in on Saturday and get a Neulasta shot as well. Has not had a fever. Onset: Today, Sudden Duration: Hour(s):, Improving Location: Reports: Chest Severity: Moderate Improves with: Reports: Rest Worsens with: Reports: Movement Associated Symptoms: Reports: Cough, Shortness of Breath, Weakness. 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 Treatments - Related Data Allergies Allergy/AdvReac Type Severity Reaction Status Date / Time cephalexin [Cephalexin] Allergy Vomiting Verified 11/10/17 01:53 chlorothiazide Allergy Vomiting Verified 11/10/17 01:53 [Chlorothiazide] chlorthalidone Allergy Vomiting Verified 11/10/17 01:53 clindamycin Allergy Vomiting Verified 11/10/17 01:53 heparin Allergy Vomiting Verified 11/10/17 01:53 levofloxacin [From Levaquin] Allergy Other Verified 11/10/17 01:53 Penicillins Allergy Vomiting Verified 11/10/17 01:53 prednisone Allergy Vomiting Verified 11/10/17 01:53 all narcotics Allergy Vomiting Uncoded 11/10/17 01:53 bee sting Allergy Cannot Uncoded 11/10/17 01:53 Remember magnesium Allergy Vomiting Uncoded 11/10/17 01:53 Home Meds: Home Meds Albuterol [Proair HFA] 2 puff IH Q4H PRN 03/05/13 [History] Naproxen Sodium [Aleve] 220 mg PO QID PRN 03/05/13 [History] Albuterol/Ipratropium [DuoNeb 3.0-0.5 MG/3 ML] 3 ml INH QID PRN 01/02/16 [ History] amLODIPine [Norvasc] 5 mg PO DAILY 07/05/16 [History] ALPRAZolam [Alprazolam] 0.25 mg PO QID PRN #120 tablet 09/11/16 [Rx] Budesonide [Pulmicort] 0.5 mg NEB 0700,1900 01/14/17 [History] Nicotine [Nicotine Patch] 21 mg TOP DAILY 01/14/17 [History] Arformoterol [Brovana] 1 ampule INH BID 09/24/17 [History] Polyethylene Glycol 3350 [MiraLAX] 17 gm PO BID 11/10/17 [History] guaiFENesin [Mucinex] 600 mg PO BID 11/10/17 [History] Past Medical History HEENT History: Reports: Allergic Rhinitis, Cataract, Sinusitis Cardiovascular History: Reports: Hypertension Respiratory History: Reports: COPD, Pneumonia, Recurrent, SOB Genitourinary History: Reports: UTI, Recurrent 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 Denies: Fever, Chills, Malaise HEENT: Reports: Rhinitis. Denies: Ear Pain, Sinus Problem, Throat Pain Respiratory: Reports: Shortness of Breath, Cough Cardiovascular: Reports: Edema (states has edema all the time, not just now. Relates has had trouble with this since she got Cipro a year ago). Denies: Chest Pain, Lightheadedness Endocrine: Reports: Fatigue GI/Abdominal: Denies: Abdominal Pain, Nausea, Vomiting : Reports: No Symptoms Musculoskeletal: Reports: No Symptoms Skin: Reports: No Symptoms ED EXAM, GENERAL - Physical Exam Exam: See Below Exam Limited By: No Limitations General Appearance: Alert, WD/WN, Mild Distress Ears: Normal External Exam, Normal TMs Nose: Normal Inspection, Normal Mucosa, No Blood, Clear Rhinorrhea Throat/Mouth: Normal Inspection, Normal Oropharynx Head: Normocephalic Neck: Normal Inspection, Supple, Non-Tender Respiratory/Chest: Respiratory Distress (mild tachypnea), Decreased Breath Sounds Cardiovascular: Regular Rate, Rhythm GI/Abdominal: Normal Bowel Sounds, Soft, Non-Tender Extremities: Normal Inspection, Pedal Edema (2+ pitting edema in the legs) Neurological: Alert, Oriented Skin Exam: Warm, Dry Course - Vital Signs Last Recorded V/S: Last Vital Signs Temp 98.6 F 11/10/17 01:24 Pulse 119 H 11/10/17 01:24 Resp 22 H 11/10/17 01:24 BP 157/77 H 11/10/17 01:24 Pulse Ox 87 L 11/10/17 01:24 - Orders/Labs/Meds Orders: Active Orders 24 hr Category Date Time Status Chest 2V [CR] Stat Exams 11/10/17 01:20 Taken Furosemide [Lasix] Med 11/10/17 01:45 Active 40 mg IVPUSH Q24H Medication Orders Furosemide (Lasix) 40 mg IVPUSH Q24H ALE Last Admin: 11/10/17 01:51 Dose: 40 mg Labs: Laboratory Tests 11/10/17 11/10/17 11/10/17 Range/Units 01:25 01:25 01:25 WBC 45.5 H* (5.0-10.0) 10^3/uL RBC 4.41 (4.00-5.50) 10^6/uL Hgb 14.6 (12.0-16.0) g/dL Hct 43.2 (37.0-47.0) % MCV 98.0 H (82.0-94.0) fL MCH 33.1 H (27.0-32.0) pg MCHC 33.8 (33.0-38.0) g/dL RDW Coeff of Lucille 13.7 (11.0-15.0) % Plt Count 240 (150-400) 10^3/uL Add Manual Diff Yes Neutrophils % (Manual) 73 (35-85) % Band Neutrophils % 16 H (0-5) % Lymphocytes % (Manual) 9 L (21-55) % Monocytes % (Manual) 1 L (2-12) % Basophils % (Manual) 1 (0-3) % Absolute Neutrophils 40.50 H (1.80-7.00) 10^3/uL Lymphocytes # (Manual) 4.10 (1.00-4.80) 10^3/uL Monocytes # (Manual) 0.46 (0.00-0.80) 10^3/uL Basophils # (Manual) 0.46 10^3/uL D-Dimer, Quantitative 0.43 (0.00-0.50) Sodium 142 (136-145) mEq/L Potassium 3.9 (3.5-5.0) mEq/L Chloride 105 (98-106) mEq/L Carbon Dioxide 30 (21-32) mmol/L BUN 21 H D (7-18) mg/dL Creatinine 0.7 (0.6-1.0) mg/dL Est Cr Clr Drug Dosing TNP Estimated GFR (MDRD) > 60 (>=60) mL/min Glucose 104 H (75-99) mg/dL Calcium 8.3 L (8.4-10.1) mg/dL C-Reactive Protein 0.8 (0.2-0.8) mg/dL NT-Pro-B Natriuret Pep 844 (0-1000) pg/mL Meds: Medications Generic Name Dose Route Start Last Admin Trade Name Freq PRN Reason Stop Dose Admin Furosemide 40 mg 11/10/17 01:45 11/10/17 01:51 Lasix IVPUSH 40 mg Q24H ALE Administration - Re-Assessments/Exams Free Text/Narrative Re-Assessment/Exam: 11/10/17 01:55 Labs are relatively normal except her WBC. Contacted Dr. Romero at [facility] in regards to current status and WBC. Recommend admission for 24 hours with nebs and IV steroids due to her symptoms and that her white cells with that quick of a jump could be causing issues with her lungs. Patient and informed. Departure - Departure Time of Disposition: 02:21 Disposition: Refer to Observation Condition: Fair Clinical Impression: Neutrophilic leukocytosis COPD (chronic obstructive pulmonary disease) Qualifiers: COPD type: COPD with acute exacerbation Qualified Code(s): J44.1 - Chronic obstructive pulmonary disease with (acute) exacerbation - Discharge Information Referrals: Gaston Nicole MD [Primary Care Provider] - Forms: ED Department Discharge - Problem List & Annotations (1) COPD (chronic obstructive pulmonary disease) SNOMED Code(s): 48572634 Code(s): J44.9 - CHRONIC OBSTRUCTIVE PULMONARY DISEASE, UNSPECIFIED Status : Chronic Priority: High Current Visit: Yes Qualifiers: COPD type: COPD with acute exacerbation Qualified Code(s): J44.1 - Chronic obstructive pulmonary disease with (acute) exacerbation (2) Neutrophilic leukocytosis SNOMED Code(s): 796822011, 469640536 Code(s): D72.9 - DISORDER OF WHITE BLOOD CELLS, UNSPECIFIED Status: Acute Priority: High Current Visit: Yes - Problem List Review Problem List Initiated/Reviewed/Updated: Yes - My Orders Last 24 Hours: My Active Orders 11/10/17 01:20 Chest 2V [CR] Stat 11/10/17 01:45 Furosemide [Lasix] 40 mg IVPUSH Q24H - Assessment/Plan Admission H&P: Please use this note as an admission H&P Last 24 Hours: My Active Orders 11/10/17 01:20 Chest 2V [CR] Stat 11/10/17 01:45 Furosemide [Lasix] 40 mg IVPUSH Q24H Assessment:: Leukocytosis COPD Plan: Admit observation to DR. Nicole. Will start IV Solu Medrol, nebs and monitor.
[2017-11-10 01:49] LABS: CHLORIDE,CL 105 mEq/L (98-106); SODIUM,NA 142 mEq/L (136-145)
[2017-11-10] MEDS ORDERED: Sodium Chloride 0.9% 10 ML Syringe FLUSH PRN (02:48)
[2017-11-10] MEDS ORDERED: Temazepam 15 MG Cap PO PRN (02:48)
[2017-11-10] MEDS ORDERED: Albuterol/Ipratropium 3.0-0.5 MG/3 ML Neb Soln INH PRN (02:48)
[2017-11-10] MEDS ORDERED: Albuterol 8 GM Inhaler INH PRN (02:48)
[2017-11-10] MEDS ORDERED: ALPRAZOLAM 0.25 MG PO PRN (02:48)
[2017-11-10] MEDS ORDERED: Naproxen 500 MG Tab PO PRN (02:48)
[2017-11-10] MEDS: methylPREDNISolone Sodium Succinate 125 MG/2 ML SDV IVPUSH SCH ×2 (03:17→15:08)
[2017-11-10] MEDS: BUDESONIDE 0.5 MG/2 ML NEB SCH ×2 (07:21→19:39)
[2017-11-10] MEDS: BROVANA 15 MCG/2 ML INH SCH ×2 (07:22→19:40)
[2017-11-10 07:35] LABS: CHLORIDE,CL 102 mEq/L (98-106); SODIUM,NA 140 mEq/L (136-145)
[2017-11-10] MEDS: NICOTINE 21 MG/24 HR TOP SCH (07:40)
[2017-11-10] MEDS: Enoxaparin 30 MG/0.3 ML Syringe SUBCUT SCH (07:40)
[2017-11-10] MEDS: POLYETHYLENE GLYCOL 17 GM PO SCH ×2 (07:40→19:40)
[2017-11-10] MEDS: AMLODIPINE 5 MG PO SCH (07:41)
[2017-11-10] MEDS: GUAIFENESIN 600 MG PO SCH ×2 (07:42→19:40)
[2017-11-10] MEDS: IPRATROPIUM NEB PRN ×2 (10:48→16:03)
[2017-11-11] MEDS ORDERED: Magnesium Hydroxide 400 MG/5 ML Susp 30 ML Cup PO ONE (02:46)
[2017-11-11] MEDS: methylPREDNISolone Sodium Succinate 125 MG/2 ML SDV IVPUSH SCH (03:00)
[2017-11-11] MEDS: BUDESONIDE 0.5 MG/2 ML NEB SCH (06:54)
[2017-11-11 07:31] VITALS: BP 111/61
[2017-11-11 07:34] LABS: CHLORIDE,CL 103 mEq/L (98-106); SODIUM,NA 140 mEq/L (136-145)
[2017-11-11] MEDS: AMLODIPINE 5 MG PO SCH (07:49)
[2017-11-11] MEDS: POLYETHYLENE GLYCOL 17 GM PO SCH (07:49)
[2017-11-11] MEDS: BROVANA 15 MCG/2 ML INH SCH (07:50)
[2017-11-11] MEDS: GUAIFENESIN 600 MG PO SCH (07:50)
[2017-11-11] MEDS: NICOTINE 21 MG/24 HR TOP SCH (07:52)
[2017-11-11] MEDS: Enoxaparin 30 MG/0.3 ML Syringe SUBCUT SCH (07:54)
--- NOTE | 2017-11-12 19:48 | PCM.DCSUM1 ---
Discharge Summary - Hospital Course Free Text/Narrative:: Patient presented to ER with complaints of shortness of breath. States awoke suddenly feeling more short of breath than her usual. She took a nebulizer and several puffs on her inhaler and didn't see much relief. She relates that she has gained over 10# since receiving chemo on . She relates that in [place] her weight was 170# and when she got home, it was 180#. She called [facility] and they said she may be up on her weight due to fluids that were infused. She is worried that the chemo could potentially be hard on her hard. She did come in on Saturday and get a Neulasta shot as well. Has not had a fever. Labs done in the ER, chest xray. WBC 45.4, CRP 0.8. ProBNP within normal range. Contacted [facility] and discussed with Dr. Romero. Concerned about status of lungs due to high WBC and recent chemo infusion. Admitted and started on nebulizer treatments, oxygen and steroids. Diagnosis: Stroke: No - Discharge Data Discharge Date: 11/11/17 Discharge Disposition: Home, Self-Care 01 Condition: Fair - Discharge Diagnosis/Problem(s) (1) COPD (chronic obstructive pulmonary disease) SNOMED Code(s): 70961753 ICD Code: J44.9 - CHRONIC OBSTRUCTIVE PULMONARY DISEASE, UNSPECIFIED Status : Chronic Priority: High Qualifiers: COPD type: COPD with acute exacerbation Qualified Code(s): J44.1 - Chronic obstructive pulmonary disease with (acute) exacerbation (2) Neutrophilic leukocytosis SNOMED Code(s): 724883634, 544519640 ICD Code: D72.9 - DISORDER OF WHITE BLOOD CELLS, UNSPECIFIED Status: Acute Priority: High - Patient Summary/Data Complications: none Hospital Course: Patient was admitted with oxygen sats of 86% on room air, improved to 96% on 2 liters. Were able to wean her off the oxygen by discharge, sats at 95% on room air. Lung sounds on admit diminished, wheezing scattered throughout. Improved , still has fine expiratory wheezing. Appetite has been good. No nausea. Ambulating in the halls. WBC remained stabled at 45, CRP remains negative. Was given IV lasix in the ER, continues to have edema in lower extremities. Overall, status improved by discharge - Patient Instructions Diet: Usual Diet as Tolerated Activity: As Tolerated - Discharge Plan *PRESCRIPTION DRUG MONITORING PROGRAM REVIEWED*: No *COPY OF PRESCRIPTION DRUG MONITORING REPORT IN PATIENT GUERO: No Home Medications: Home Meds Albuterol [Proair HFA] 2 puff IH Q4H PRN 03/05/13 [History] Naproxen Sodium [Aleve] 220 mg PO QID PRN 03/05/13 [History] amLODIPine [Norvasc] 5 mg PO DAILY 07/05/16 [History] ALPRAZolam [Alprazolam] 0.25 mg PO QID PRN #120 tablet 09/11/16 [Rx] Budesonide [Pulmicort] 0.5 mg NEB 0700,1900 01/14/17 [History] Nicotine [Nicotine Patch] 21 mg TOP DAILY 01/14/17 [History] Arformoterol [Brovana] 1 ampule INH BID 09/24/17 [History] Ipratropium [Atrovent] 1 inh NEB Q4H PRN 11/10/17 [History] Polyethylene Glycol 3350 [MiraLAX] 17 gm PO BID 11/10/17 [History] guaiFENesin [Mucinex] 600 mg PO BID 11/10/17 [History] Forms: ED Department Discharge Referrals: Sandrine Lopes PA [Emergency Provider] - (Follow up with [facility] tomorrow for injection/recheck lungs ) - Discharge Summary/Plan Comment DC Time >30 min.: No Discharge Summary/Plan Comment: Patient discharge home. Return tomorrow for additional IV Solu Medrol 125 mg Usual breathing treatments Follow up in clinic tomorrow - General Info Date of Service: 11/11/17 Admission Dx/Problem (Free Text: COPD Exacerbation Functional Status: Reports: Pain Controlled, Tolerating Diet, Ambulating - Review of Systems General: Reports: Weakness, Fatigue, Malaise. Denies: Fever HEENT: Reports: Sinus Congestion Pulmonary: Reports: Shortness of Breath, Wheezing Cardiovascular: Reports: Edema. Denies: Chest Pain Gastrointestinal: Denies: Abdominal Pain, Nausea, Vomiting Genitourinary: Reports: No Symptoms Musculoskeletal: Reports: No Symptoms Skin: Reports: No Symptoms Neurological: Reports: No Symptoms - Patient Data Vitals - Most Recent: Last Vital Signs Temp 97.8 F 11/11/17 07:31 Pulse 985 H 11/11/17 07:31 Resp 20 11/11/17 07:31 BP 111/61 11/11/17 07:31 Pulse Ox 95 11/11/17 07:31 Weight - Most Recent: 170 lb 3.2 oz Med Orders - Current: Current Medications Discontinued Medications Albuterol (Ventolin Hfa) 0 gm INH Q4H PRN PRN Reason: Shortness of Breath Albuterol/Ipratropium (Duoneb 3.0-0.5 Mg/3 Ml) 3 ml INH QID PRN PRN Reason: breathing Alprazolam (Xanax) 0.25 mg PO QID PRN PRN Reason: Anxiety Last Admin: 11/10/17 15:09 Dose: 0.25 mg Budesonide (Pulmicort) 0.5 mg NEB 0700,1900 [facility] Last Admin: 11/11/17 06:54 Dose: 0.5 mg Enoxaparin Sodium (Lovenox) 30 mg SUBCUT Q24H [facility] Last Admin: 11/11/17 07:54 Dose: 30 mg Furosemide (Lasix) 40 mg IVPUSH Q24H [facility] Last Admin: 11/10/17 01:51 Dose: 40 mg Ipratropium [place] (Atrovent) 0.5 mg NEB Q4H PRN PRN Reason: Dyspnea Last Admin: 11/10/17 16:03 Dose: 0.5 mg Magnesium Hydroxide (Milk Of Magnesia) 30 ml PO ONETIME ONE Stop: 11/11/17 02:47 Last Admin: 11/11/17 04:23 Dose: 30 ml Methylprednisolone Sodium Succinate (Solu-Medrol) 125 mg IVPUSH Q12H [facility] Last Admin: 11/11/17 03:00 Dose: 125 mg Naproxen (Naprosyn) 250 mg PO QID PRN PRN Reason: Pain Nicotine (Habitrol) 21 mg TOP DAILY [facility] Last Admin: 11/11/17 07:52 Dose: 21 mg Amlodipine 5mg (Own Med) 1 each PO DAILY [facility] Last Admin: 11/11/17 07:49 Dose: 1 each Brovana 15mcg/2ml (*Own Med) 1 each INH BIDRT [facility] Last Admin: 11/11/17 07:50 Dose: 1 each Guaifenesin 600mg (*Own Med) 1 each PO BID [facility] Last Admin: 11/11/17 07:50 Dose: 1 each Polyethylene Glycol (Miralax) 17 gm PO BID [facility] Last Admin: 11/11/17 07:49 Dose: Not Given Sodium Chloride (Saline Flush) 10 ml FLUSH ASDIRECTED PRN PRN Reason: Keep Vein Open Temazepam (Restoril) 15 mg PO BEDTIME PRN PRN Reason: Sleep - Exam General: Reports: Alert, Oriented HEENT: Reports: Mucous Membr. Moist/[place] Neck: Reports: Supple Lungs: Reports: Decreased Breath Sounds, Wheezing Cardiovascular: Reports: Regular Rate, Regular Rhythm GI/Abdominal Exam: Normal Bowel Sounds, Soft, Non-Tender Skin: Reports: Warm, Dry Neurological: Reports: No New Focal Deficit
== END 2017-11-11 10:15 | disposition home or self-care (01) ==
LOC: CC.ED 01:10 → CC.MS 02:20 → UNDOADMOB 02:20 → CC.MS 02:31
PROVIDERS: ADMIT Physician Assistant Medical; ATTEND Family Medicine
DX: J44.1 Chronic obstructive pulmonary disease with (acute) exacerbation (principal); D72.9 Disorder of white blood cells, unspecified; I10 Essential (primary) hypertension; F41.9 Anxiety disorder, unspecified; Z79.899 Other long term (current) drug therapy
CPT/HCPCS: 36415; 71046; 80048; 83880; 85025; 85379; 86140; 93005; 94640; 96372; 96374; 96375; 96376; 99217; 99220; 99285; A9270-GY; G0378; J1650; J1940; J2930

== ENCOUNTER 2017-12-12 13:53 | Emergency (ER) | payer MEDICARE, OTHER ==
[2017-12-12 13:59] VITALS: BP 147/83
[2017-12-12] MEDS ORDERED: Lidocaine/Prilocaine 2.5-2.5% Crm 5 GM Tube TOP ONE (13:59)
--- NOTE | 2017-12-12 14:30 | EDM.PDOC ---
ED HPI GENERAL MEDICAL PROBLEM - General Chief Complaint: Possible Sepsis Stated Complaint: CHILLS/FEVER Time Seen by Provider: 12/12/17 13:55 Source of Information: Reports: Patient History Limitations: Reports: No Limitations - History of Present Illness INITIAL COMMENTS - FREE TEXT/NARRATIVE: Patient presents to ER with complaints of fever and chills today. States temp increased to 101.5 at home today. She had chemo on November 27, hasn't really felt well since then. States called [facility] and they advised her to come immediately to the ER. She hasn't taken anything for the fever. States "they don't work for me". Denies increased cough, shortness of breath, urinary complaints. Port intact and has been working well when getting infusions. Has a history of leukocytosis with her last Neulasta shot. No nausea, vomiting or abdominal pain. She states she had a tooth infection 20 years ago and worries that the pouch in her gum line could be infected as it did swell up a couple weeks ago. Onset: Gradual Duration: Day(s): Location: Reports: Generalized Quality: Reports: Ache Severity: Mild Associated Symptoms: Reports: Fever/Chills, Weakness. Denies: Confusion, Chest Pain, Cough, Loss of Appetite, Nausea/Vomiting, Shortness of Breath - Related Data Allergies Allergy/AdvReac Type Severity Reaction Status Date / Time cephalexin [Cephalexin] Allergy Vomiting Verified 12/12/17 13:59 chlorothiazide Allergy Vomiting Verified 12/12/17 13:59 [Chlorothiazide] chlorthalidone Allergy Vomiting Verified 12/12/17 13:59 clindamycin Allergy Vomiting Verified 12/12/17 13:59 heparin Allergy Vomiting Verified 12/12/17 13:59 levofloxacin [From Levaquin] Allergy Other Verified 12/12/17 13:59 Penicillins Allergy Vomiting Verified 12/12/17 13:59 prednisone Allergy Vomiting Verified 12/12/17 13:59 all narcotics Allergy Vomiting Uncoded 12/12/17 13:59 bee sting Allergy Cannot Uncoded 12/12/17 13:59 Remember magnesium Allergy Vomiting Uncoded 12/12/17 13:59 Home Meds: Home Meds Albuterol [Proair HFA] 2 puff IH Q4H PRN 03/05/13 [History] Naproxen Sodium [Aleve] 220 mg PO QID PRN 03/05/13 [History] amLODIPine [Norvasc] 5 mg PO DAILY 07/05/16 [History] ALPRAZolam [Alprazolam] 0.25 mg PO QID PRN #120 tablet 09/11/16 [Rx] Budesonide [Pulmicort] 0.5 mg NEB 0700,1900 01/14/17 [History] Nicotine [Nicotine Patch] 21 mg TOP DAILY 01/14/17 [History] Arformoterol [Brovana] 1 ampule INH BID 09/24/17 [History] Ipratropium [Atrovent] 1 inh NEB Q4H PRN 11/10/17 [History] Polyethylene Glycol 3350 [MiraLAX] 17 gm PO BID 11/10/17 [History] guaiFENesin [Mucinex] 600 mg PO BID 11/10/17 [History] Ranitidine HCl [Zantac 75] 75 mg PO DAILY 11/14/17 [History] Roflumilast [Daliresp] 250 mcg PO DAILY 11/14/17 [History] Furosemide [Lasix] 20 mg PO DAILY 12/12/17 [History] OLANZapine [ZyPREXA] 5 mg PO DAILY 12/12/17 [History] Sulfamethoxazole/Trimethoprim [Bactrim Ds Tablet] 1 each PO BID #20 tablet 12/12 [Rx] Past Medical History HEENT History: Reports: Allergic Rhinitis, Cataract, Sinusitis Cardiovascular History: Reports: Hypertension Respiratory History: Reports: COPD, Pneumonia, Recurrent, SOB Genitourinary History: Reports: UTI, Recurrent 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) Other BONE WORKER History: fallopian tube cancer Psychiatric History: Reports: Anxiety Oncologic (Cancer) History: Reports: Breast, Other (See Below) Other Oncologic History: fallopian tube cancer - Past Surgical History HEENT Surgical History: Reports: Cataract Surgery Cardiovascular Surgical History: Reports: None Female Surgical History: Reports: Hysterectomy Social & Family History - Family History Family Medical History: Noncontributory - Tobacco Use Smoking Status *Q: Current Every Day Smoker Years of Tobacco use: 50 Packs/Tins Daily: 0.1 - Caffeine Use Caffeine Use: Reports: Coffee ED ROS GENERAL - Review of Systems Review Of Systems: See Below Constitutional: Reports: Fever, Chills, Malaise, Weakness, Decreased Appetite HEENT: Reports: No Symptoms Respiratory: Reports: Shortness of Breath (No increased shortness of breath from her norm), Cough Cardiovascular: Reports: Edema. Denies: Chest Pain, Lightheadedness Endocrine: Reports: Fatigue GI/Abdominal: Denies: Abdominal Pain, Constipation, Diarrhea, Nausea, Vomiting : Reports: No Symptoms Musculoskeletal: Reports: Joint Pain Skin: Reports: No Symptoms Neurological: Reports: Weakness. Denies: Headache, Syncope ED EXAM, GENERAL - Physical Exam Exam: See Below Exam Limited By: No Limitations General Appearance: Alert, WD/WN, No Apparent Distress Ears: Normal External Exam, Normal TMs Nose: Normal Inspection, Normal Mucosa, No Blood Throat/Mouth: Normal Inspection, Normal Oropharynx, Other (Has a mild amount of swelling to the jaw line. ) Neck: Normal Inspection, Supple, Non-Tender Respiratory/Chest: Lungs Clear, Decreased Breath Sounds Cardiovascular: Regular Rate, Rhythm GI/Abdominal: Normal Bowel Sounds, Soft, Non-Tender Extremities: Pedal Edema Neurological: Alert, Oriented Course - Vital Signs Last Recorded V/S: Last Vital Signs Temp 99.2 F 12/12/17 13:56 Pulse 128 H 12/12/17 13:56 Resp 18 12/12/17 13:56 BP 147/83 H 12/12/17 13:56 Pulse Ox 95 12/12/17 13:56 - Orders/Labs/Meds Orders: Active Orders 24 hr Category Date Time Status Chest 2V [CR] Stat Exams 12/12/17 14:32 Taken CULTURE BLOOD [BC] Stat Lab 12/12/17 14:24 Received CULTURE BLOOD [BC] Stat Lab 12/12/17 14:47 Received CULTURE URINE [RM] Stat Lab 12/12/17 14:30 Received UA W/MICROSCOPIC [URIN] Stat Lab 12/12/17 14:08 Ordered Blood Culture x2 Reflex Set [OM.PC] Stat Oth 12/12/17 13:57 Ordered Labs: Laboratory Tests 12/12/17 12/12/17 12/12/17 Range/Units 14:08 14:24 14:24 WBC 14.5 H (5.0-10.0) 10^3/uL RBC 3.95 L (4.00-5.50) 10^6/uL Hgb 12.7 (12.0-16.0) g/dL Hct 37.7 (37.0-47.0) % MCV 95.4 H (82.0-94.0) fL MCH 32.2 H (27.0-32.0) pg MCHC 33.7 (33.0-38.0) g/dL RDW Coeff of Lucille 13.4 (11.0-15.0) % Plt Count 433 H (150-400) 10^3/uL Add Manual Diff Yes Neutrophils % (Manual) 52 (35-85) % Band Neutrophils % 13 H (0-5) % Lymphocytes % (Manual) 19 L (21-55) % Monocytes % (Manual) 16 H (2-12) % Sodium 136 (136-145) mEq/L Potassium 3.9 (3.5-5.0) mEq/L Chloride 99 (98-106) mEq/L Carbon Dioxide 24 (21-32) mmol/L BUN 8 (7-18) mg/dL Creatinine 1.0 (0.6-1.0) mg/dL Est Cr Clr Drug Dosing 44.54 mL/min Estimated GFR (MDRD) 55 L (>=60) mL/min Glucose 129 H (75-99) mg/dL Lactic Acid (0.4-2.0) mmol/L Calcium 9.2 (8.4-10.1) mg/dL Total Bilirubin 0.5 (0.0-1.0) mg/dL AST 20 (15-37) U/L ALT 21 (12-78) U/L Alkaline Phosphatase 72 (46-116) U/L C-Reactive Protein 5.1 H (0.2-0.8) mg/dL Total Protein 7.3 (6.4-8.2) g/dL Albumin 3.3 L (3.4-5.0) g/dL Urine Color Yellow (YELLOW) Urine Appearance Clear (CLEAR) Urine pH 5.0 (4.5-8.0) Ur Specific Rincon >= 1.030 H (1.003-1.020) Urine Protein 30 H (NEGATIVE) mg/dL Urine Glucose (UA) 100 H (NEGATIVE) mg/dL Urine Ketones 15 H (NEGATIVE) mg/dL Urine Occult Blood Negative (NEGATIVE) Urine Nitrite Negative (NEGATIVE) Urine Bilirubin Moderate H (NEGATIVE) Urine Urobilinogen 1.0 (0.2-1.0) EU/dL Ur Leukocyte Esterase Negative (NEGATIVE) Urine RBC Not seen (0-5) /HPF Urine WBC 0-5 (0-5) /HPF Ur Epithelial Cells Moderate H (NOT SEEN) /HPF Urine Bacteria Many H (NOT SEEN) /HPF Urine Mucus Many H (NOT SEEN) /HPF 12/12/17 Range/Units 14:24 WBC (5.0-10.0) 10^3/uL RBC (4.00-5.50) 10^6/uL Hgb (12.0-16.0) g/dL Hct (37.0-47.0) % MCV (82.0-94.0) fL MCH (27.0-32.0) pg MCHC (33.0-38.0) g/dL RDW Coeff of Lucille (11.0-15.0) % Plt Count (150-400) 10^3/uL Add Manual Diff Neutrophils % (Manual) (35-85) % Band Neutrophils % (0-5) % Lymphocytes % (Manual) (21-55) % Monocytes % (Manual) (2-12) % Sodium (136-145) mEq/L Potassium (3.5-5.0) mEq/L Chloride (98-106) mEq/L Carbon Dioxide (21-32) mmol/L BUN (7-18) mg/dL Creatinine (0.6-1.0) mg/dL Est Cr Clr Drug Dosing mL/min Estimated GFR (MDRD) (>=60) mL/min Glucose (75-99) mg/dL Lactic Acid 1.7 (0.4-2.0) mmol/L Calcium (8.4-10.1) mg/dL Total Bilirubin (0.0-1.0) mg/dL AST (15-37) U/L ALT (12-78) U/L Alkaline Phosphatase (46-116) U/L C-Reactive Protein (0.2-0.8) mg/dL Total Protein (6.4-8.2) g/dL Albumin (3.4-5.0) g/dL Urine Color (YELLOW) Urine Appearance (CLEAR) Urine pH (4.5-8.0) Ur Specific Rincon (1.003-1.020) Urine Protein (NEGATIVE) mg/dL Urine Glucose (UA) (NEGATIVE) mg/dL Urine Ketones (NEGATIVE) mg/dL Urine Occult Blood (NEGATIVE) Urine Nitrite (NEGATIVE) Urine Bilirubin (NEGATIVE) Urine Urobilinogen (0.2-1.0) EU/dL Ur Leukocyte Esterase (NEGATIVE) Urine RBC (0-5) /HPF Urine WBC (0-5) /HPF Ur Epithelial Cells (NOT SEEN) /HPF Urine Bacteria (NOT SEEN) /HPF Urine Mucus (NOT SEEN) /HPF Meds: Medications Discontinued Medications Generic Name Dose Route Start Last Admin Trade Name Belia PRN Reason Stop Dose Admin Heparin Sodium (Porcine) Confirm 12/12/17 14:29 12/12/17 15:07 Heparin Lock Flush 100 Units/Ml Administered 12/12/17 14:30 500 units Dose Administration 500 units .ROUTE .STK-MED ONE Lidocaine/Prilocaine 0 gm 12/12/17 13:59 12/12/17 14:09 Emla Crm TOP 12/12/17 14:00 1 applic ONETIME ONE Administration - Re-Assessments/Exams Free Text/Narrative Re-Assessment/Exam: 12/12/17 Lab and xrays reviewed. Has UTI. will obtain culture. Contacted [facility] with report/labs. Will treat with Bactrim for UTI, await blood and urine culture reports. Departure - Departure Time of Disposition: 15:23 Disposition: Home, Self-Care 01 Clinical Impression: UTI (urinary tract infection) - Discharge Information Prescriptions: Sulfamethoxazole/Trimethoprim [Bactrim Ds Tablet] 1 each PO BID #20 tablet Forms: ED Department Discharge Additional Instructions: 1. Push fluids 2. Ibuprofen for fever 3. Bactrim DS one tab twice a day for 10 days 4. Follow up or call Dr. Orourke's office if ongoing concerns. - My Orders Last 24 Hours: My Active Orders 12/12/17 13:57 Blood Culture x2 Reflex Set [OM.PC] Stat 12/12/17 14:08 UA W/MICROSCOPIC [URIN] Stat 12/12/17 14:24 CULTURE BLOOD [BC] Stat 12/12/17 14:30 CULTURE URINE [RM] Stat 12/12/17 14:32 Chest 2V [CR] Stat 12/12/17 14:47 CULTURE BLOOD [BC] Stat - Assessment/Plan Last 24 Hours: My Active Orders 12/12/17 13:57 Blood Culture x2 Reflex Set [OM.PC] Stat 12/12/17 14:08 UA W/MICROSCOPIC [URIN] Stat 12/12/17 14:24 CULTURE BLOOD [BC] Stat 12/12/17 14:30 CULTURE URINE [RM] Stat 12/12/17 14:32 Chest 2V [CR] Stat 12/12/17 14:47 CULTURE BLOOD [BC] Stat
== END 2017-12-12 15:30 | disposition home or self-care (01) ==
LOC: CC.ED 13:53
DX: N39.0 Urinary tract infection, site not specified (principal); I10 Essential (primary) hypertension; J44.9 Chronic obstructive pulmonary disease, unspecified; F17.210 Nicotine dependence, cigarettes, uncomplicated; Z88.1 Allergy status to other antibiotic agents; Z87.01 Personal history of pneumonia (recurrent); Z88.8 Allergy status to other drugs, medicaments and biological substances; Z79.899 Other long term (current) drug therapy
CPT/HCPCS: 36415; 71046; 80053; 81001; 83605; 85025; 86140; 87040; 87086; 99284; A9270; J1642

== ENCOUNTER 2017-12-13 03:41 | Inpatient (IN) | payer MEDICARE, OTHER ==
[2017-12-13] MEDS ORDERED: Lidocaine/Prilocaine 2.5-2.5% Crm 5 GM Tube ONE (04:37)
[2017-12-13] MEDS ORDERED: Magnesium Hydroxide 400 MG/5 ML Susp 30 ML Cup PO PRN (04:47)
[2017-12-13] MEDS ORDERED: Ipratropium 0.02% 0.5 MG/2.5 ML Neb Soln NEB PRN (04:47)
[2017-12-13] MEDS ORDERED: Non-Formulary Medication 1 Each (Naproxen Sodium [Aleve] 220 MG) PO PRN (04:47)
[2017-12-13] MEDS ORDERED: Ondansetron 4 MG Tab.DIS PO PRN (04:47)
[2017-12-13] MEDS ORDERED: ALPRAZolam 0.25 MG Tab PO PRN (04:47)
[2017-12-13] MEDS ORDERED: Albuterol 8 GM Inhaler INH PRN (04:47)
[2017-12-13] MEDS ORDERED: Ondansetron 4 MG/2 ML SDV IV PRN (04:47)
--- NOTE | 2017-12-13 04:55 | EDM.PDOC ---
ED HPI GENERAL MEDICAL PROBLEM - General Chief Complaint: Fever Stated Complaint: FEVER Time Seen by Provider: 12/13/17 04:13 Source of Information: Reports: Patient History Limitations: Reports: No Limitations - History of Present Illness INITIAL COMMENTS - FREE TEXT/NARRATIVE: Patient returns back to ER with a fever. Was seen earlier today with a fever as well. Work up was done at that time. Positive for UTI. WBC 14. She is currently on a regimen of chemotherapy for breast cancer. Had a 102 fever earlier and now again spiked a fever of same and was worried. Took ibuprofen 200 mg at home for her fever, states tylenol doesn't work for her. She denies any other changes in status, ie. chest pain, shortness of breath, abdominal pain , nausea or vomiting. We did obtain urine culture and blood cultures earlier today. Onset: Gradual Duration: Day(s): Location: Reports: Generalized Improves with: Reports: Medication Associated Symptoms: Reports: Cough, Fever/Chills, Shortness of Breath (chronic shortness of breath ), Weakness. Denies: Confusion, Chest Pain, Nausea/Vomiting - Related Data Allergies Allergy/AdvReac Type Severity Reaction Status Date / Time cephalexin [Cephalexin] Allergy Vomiting Verified 12/13/17 03:42 chlorothiazide Allergy Vomiting Verified 12/13/17 03:42 [Chlorothiazide] chlorthalidone Allergy Vomiting Verified 12/13/17 03:42 clindamycin Allergy Vomiting Verified 12/13/17 03:42 heparin Allergy Vomiting Verified 12/13/17 03:42 levofloxacin [From Levaquin] Allergy Other Verified 12/13/17 03:42 Penicillins Allergy Vomiting Verified 12/13/17 03:42 prednisone Allergy Vomiting Verified 12/13/17 03:42 all narcotics Allergy Vomiting Uncoded 12/13/17 03:42 bee sting Allergy Cannot Uncoded 12/13/17 03:42 Remember magnesium Allergy Vomiting Uncoded 12/13/17 03:42 Home Meds: Home Meds Albuterol [Proair HFA] 2 puff IH Q4H PRN 03/05/13 [History] Naproxen Sodium [Aleve] 220 mg PO QID PRN 03/05/13 [History] amLODIPine [Norvasc] 5 mg PO DAILY 07/05/16 [History] ALPRAZolam [Alprazolam] 0.25 mg PO QID PRN #120 tablet 09/11/16 [Rx] Budesonide [Pulmicort] 0.5 mg NEB 0700,1900 01/14/17 [History] Nicotine [Nicotine Patch] 21 mg TOP DAILY 01/14/17 [History] Arformoterol [Brovana] 1 ampule INH BID 09/24/17 [History] Ipratropium [Atrovent] 1 inh NEB Q4H PRN 11/10/17 [History] Polyethylene Glycol 3350 [MiraLAX] 17 gm PO BID 11/10/17 [History] guaiFENesin [Mucinex] 600 mg PO BID 11/10/17 [History] Ranitidine HCl [Zantac 75] 75 mg PO DAILY 11/14/17 [History] Roflumilast [Daliresp] 250 mcg PO DAILY 11/14/17 [History] Furosemide [Lasix] 20 mg PO DAILY 12/12/17 [History] OLANZapine [ZyPREXA] 5 mg PO DAILY 12/12/17 [History] Sulfamethoxazole/Trimethoprim [Bactrim Ds Tablet] 1 each PO BID #20 tablet 12/12 [Rx] Past Medical History HEENT History: Reports: Allergic Rhinitis, Cataract, Sinusitis Cardiovascular History: Reports: Hypertension Respiratory History: Reports: COPD, Pneumonia, Recurrent, SOB Genitourinary History: Reports: UTI, Recurrent 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 - Caffeine Use Caffeine Use: Reports: Coffee ED ROS GENERAL - Review of Systems Review Of Systems: See Below Constitutional: Reports: Fever, Chills, Malaise, Weakness. Denies: Decreased Appetite HEENT: Denies: Ear Pain, Rhinitis, Throat Pain, Vertigo Respiratory: Reports: Shortness of Breath, Cough Cardiovascular: Reports: Edema. Denies: Chest Pain, Lightheadedness Endocrine: Reports: Fatigue GI/Abdominal: Denies: Abdominal Pain, Constipation, Diarrhea, Nausea, Vomiting : Denies: No Symptoms Musculoskeletal: Reports: Joint Pain Neurological: Reports: Weakness Psychiatric: Reports: Anxiety ED EXAM, GI/ABD - Physical Exam Exam: See Below Exam Limited By: No Limitations General Appearance: Alert, WD/WN, No Apparent Distress Ears: Normal External Exam, Normal TMs Nose: Normal Inspection, Normal Mucosa, No Blood Throat/Mouth: Normal Inspection, Normal Oropharynx Head: Normocephalic Neck: Normal Inspection, Supple, Non-Tender Respiratory/Chest: No Respiratory Distress, Decreased Breath Sounds Cardiovascular: Regular Rate, Rhythm GI/Abdominal Exam: Normal Bowel Sounds, Soft, Non-Tender Extremities: Normal Inspection, Pedal Edema (10) Neurological: Alert, Oriented Skin Exam: Warm, Dry Course - Vital Signs Last Recorded V/S: Last Vital Signs Temp 100.5 F 12/13/17 04:11 Pulse 124 H 12/13/17 03:45 Resp 24 H 12/13/17 03:45 BP 113/57 L 12/13/17 03:45 Pulse Ox 94 L 12/13/17 03:45 - Orders/Labs/Meds Orders: Active Orders 24 hr Category Date Time Status Patient Status Manage Transfer [TRANSFER] Routine ADT 12/13/17 04:31 Ordered Meds: Medications Discontinued Medications Generic Name Dose Route Start Last Admin Trade Name Belia PRN Reason Stop Dose Admin Lidocaine/Prilocaine Confirm 12/13/17 04:37 Emla Crm Administered 12/13/17 04:38 Dose 5 gm .ROUTE .STK-MED ONE Departure - Departure Time of Disposition: 04:30 Disposition: Admitted As Inpatient 64 Clinical Impression: UTI (urinary tract infection) Qualifiers: Urinary tract infection type: acute cystitis Hematuria presence: without hematuria Qualified Code(s): N30.00 - Acute cystitis without hematuria - Discharge Information *PRESCRIPTION DRUG MONITORING PROGRAM REVIEWED*: No *COPY OF PRESCRIPTION DRUG MONITORING REPORT IN PATIENT GUERO: No - Problem List & Annotations (1) Fever SNOMED Code(s): 289650920 Code(s): R50.9 - FEVER, UNSPECIFIED Status: Acute Priority: High Current Visit: Yes (2) UTI (urinary tract infection) SNOMED Code(s): 46263486 Code(s): N39.0 - URINARY TRACT INFECTION, SITE NOT SPECIFIED Status: Acute Current Visit: Yes Qualifiers: Urinary tract infection type: acute cystitis Hematuria presence: without hematuria Qualified Code(s): N30.00 - Acute cystitis without hematuria - Problem List Review Problem List Initiated/Reviewed/Updated: Yes - My Orders Last 24 Hours: My Active Orders 12/13/17 04:31 Patient Status Manage Transfer [TRANSFER] Routine - Assessment/Plan Admission H&P: Please use this note as an admission H&P Last 24 Hours: My Active Orders 12/13/17 04:31 Patient Status Manage Transfer [TRANSFER] Routine Assessment:: UTI with fever History of breast cancer with chemotherapy regimen Plan: Admit Inpatient to Dr. Nicole for UTI. Continue with IV fluids, Antibiotics as home therapy unsuccessful
[2017-12-13] MEDS: Albuterol/Ipratropium 3.0-0.5 MG/3 ML Neb Soln NEB PRN ×3 (05:37→14:42)
[2017-12-13] MEDS: Lactated Ringers 1,000 ML IV SCH ×2 (05:38→18:32)
[2017-12-13] MEDS: Pantoprazole 40 MG Vial IVPUSH SCH (05:41)
[2017-12-13] MEDS: cefTRIAXone 1 GM Vial IVPUSH SCH (05:42)
[2017-12-13] MEDS: Enoxaparin 40 MG/0.4 ML Syringe SUBCUT SCH (05:43)
[2017-12-13] MEDS: Ibuprofen 200 MG Tab PO PRN ×2 (06:05→15:05)
[2017-12-13] MEDS: Budesonide 0.5 MG/2 ML Neb Susp NEB SCH ×2 (06:07→19:02)
[2017-12-13] MEDS: Albuterol 0.083% 2.5 MG/3 ML Neb Soln INH SCH ×2 (06:07→11:45)
[2017-12-13] MEDS: Furosemide 20 MG Tab PO SCH (07:45)
[2017-12-13] MEDS: amLODIPine 2.5 MG Tab PO SCH (07:45)
[2017-12-13] MEDS: Polyethylene Glycol 3350 Powder 17 GM Packet PO SCH ×2 (07:46→19:50)
[2017-12-13] MEDS: Nicotine 21 MG/24 Hr Patch TOP SCH (07:46)
[2017-12-13] MEDS: guaiFENesin 200 MG Tab PO SCH ×3 (07:46→19:51)
[2017-12-13] MEDS: ROFLUMILAST 500 MCG PO SCH (09:16)
[2017-12-13] MEDS: ALPRAZolam 0.25 MG Tab PO SCH ×3 (13:04→19:48)
[2017-12-13] MEDS ORDERED: Albuterol/Ipratropium 3.0-0.5 MG/3 ML Neb Soln NEB SCH ×3 (16:00→17:00)
[2017-12-13] MEDS: Acetaminophen 325 MG Tab PO PRN (16:25)
[2017-12-13] MEDS: Albuterol/Ipratropium 3.0-0.5 MG/3 ML Neb Soln INH SCH ×2 (18:26→23:39)
[2017-12-13] MEDS ORDERED: Albuterol 0.083% 2.5 MG/3 ML Neb Soln INH SCH (19:00)
[2017-12-14] MEDS: Ibuprofen 200 MG Tab PO PRN ×4 (00:18→22:20)
[2017-12-14] MEDS: Albuterol/Ipratropium 3.0-0.5 MG/3 ML Neb Soln INH SCH ×7 (00:21→22:16)
[2017-12-14] MEDS: ALPRAZolam 0.25 MG Tab PO SCH ×4 (01:15→20:02)
[2017-12-14] MEDS: Acetaminophen 325 MG Tab PO PRN (01:40)
[2017-12-14] MEDS: cefTRIAXone 1 GM Vial IVPUSH SCH (03:57)
[2017-12-14] MEDS: Budesonide 0.5 MG/2 ML Neb Susp NEB SCH ×2 (06:39→18:41)
[2017-12-14] MEDS: Pantoprazole 40 MG Vial IVPUSH SCH (06:39)
[2017-12-14] MEDS: Enoxaparin 40 MG/0.4 ML Syringe SUBCUT SCH (06:39)
[2017-12-14] MEDS: amLODIPine 2.5 MG Tab PO SCH (06:58)
[2017-12-14] MEDS: Furosemide 20 MG Tab PO SCH (06:59)
[2017-12-14] MEDS: ROFLUMILAST 500 MCG PO SCH (07:00)
[2017-12-14] MEDS: Nicotine 21 MG/24 Hr Patch TOP SCH (07:55)
[2017-12-14] MEDS: Polyethylene Glycol 3350 Powder 17 GM Packet PO SCH (08:00)
[2017-12-14] MEDS: guaiFENesin 200 MG Tab PO SCH (08:00)
[2017-12-14] MEDS: Lactated Ringers 1,000 ML IV SCH (08:01)
[2017-12-14] MEDS: OLANZAPINE 5 MG PO SCH (11:07)
--- NOTE | 2017-12-14 13:20 | PCM.PN ---
- General Info Date of Service: 12/14/17 Admission Dx/Problem (Free Text): Fever Suspected UTI Undergoing chemotherapy for right breast cancer status post lumpectomy Subjective Update: Lani is a 67 year old female who was admitted to the hospital with fever. She is currently undergoing chemotherapy for right breast cancer. She reports she is on her 2nd round. She is status post lumpectomy with clear margins and negative lymph nodes. She presented to the ED with fever of 102. Had blood and urine cultures collected and was sent home. SHe then presented to the ED again with continued fevers and was admitted and started on IV Rocephin. She did have fever of 102.2 deg F. Since admission, highest temperature has been 101 deg F. She has been afebrile since 0400 this morning. She reports she is feeling much better this morning "since her fever broke." She reports that she was very chilled and shaky and "every muscle in her body hurt" when she was febrile. This morning she denies any chills, shortness of breath, N/V/D, abdominal pain. Does continue to fatigue easily and has shortness of breath with exertion. Denies any other complaints today. Functional Status: Reports: Pain Controlled, Tolerating Diet, Ambulating, Urinating. Denies: New Symptoms - Review of Systems General: Reports: Weakness, Fatigue. Denies: Fever, Chills HEENT: Reports: No Symptoms Pulmonary: Reports: Shortness of Breath (baseline). Denies: Pleuritic Chest Pain, Cough, Sputum, Hemoptysis, Wheezing Cardiovascular: Reports: Dyspnea on Exertion, Edema (trace). Denies: Chest Pain , Lightheadedness Gastrointestinal: Reports: No Symptoms. Denies: Abdominal Pain, Constipation, Decreased Appetite, Diarrhea, Nausea, Vomiting Genitourinary: Reports: No Symptoms. Denies: Dysuria, Frequency, Urgency Musculoskeletal: Reports: No Symptoms Skin: Reports: No Symptoms Neurological: Reports: Weakness. Denies: Dizziness, Headache Psychiatric: Reports: Anxiety - Patient Data Vitals - Most Recent: Last Vital Signs Temp 97.2 F 12/14/17 12:00 Pulse 94 12/14/17 12:00 Resp 22 H 12/14/17 12:00 BP 106/59 L 12/14/17 12:00 Pulse Ox 97 12/14/17 12:00 Weight - Most Recent: 159 lb 4.8 oz I&O - Last 24 Hours: Intake & Output 12/13/17 12/14/17 12/14/17 22:59 06:59 14:59 Intake Total 968 1200 Balance 968 1200 Lab Results Last 24 Hours: Laboratory Results - last 24 hr 12/14/17 12/14/17 Range/Units 11:00 11:00 WBC 10.9 H (5.0-10.0) 10^3/uL RBC 3.46 L (4.00-5.50) 10^6/uL Hgb 11.2 L (12.0-16.0) g/dL Hct 33.0 L (37.0-47.0) % MCV 95.4 H (82.0-94.0) fL MCH 32.4 H (27.0-32.0) pg MCHC 33.9 (33.0-38.0) g/dL RDW Coeff of Lucille 13.9 (11.0-15.0) % Plt Count 441 H (150-400) 10^3/uL Add Manual Diff Yes Neutrophils % (Manual) 72 (35-85) % Band Neutrophils % 4 (0-5) % Lymphocytes % (Manual) 6 L (21-55) % Monocytes % (Manual) 16 H (2-12) % Metamyelocytes % 2 % Absolute Neutrophils 8.28 H (1.80-7.00) 10^3/uL Lymphocytes # (Manual) 0.65 L (1.00-4.80) 10^3/uL Monocytes # (Manual) 1.74 H (0.00-0.80) 10^3/uL C-Reactive Protein 7.2 H (0.2-0.8) mg/dL Med Orders - Current: Current Medications Acetaminophen (Tylenol) 650 mg PO Q4H PRN PRN Reason: Pain (Mild 1-3)/fever Last Admin: 12/14/17 01:40 Dose: 325 mg Albuterol (Ventolin Hfa) 0 gm INH Q4H PRN PRN Reason: Shortness of Breath Albuterol (Proventil Neb Soln) 2.5 mg NEB 0700,1900 [facility] Albuterol/Ipratropium (Duoneb 3.0-0.5 Mg/3 Ml) 3 ml INH Q4H [facility] Last Admin: 12/14/17 10:41 Dose: 3 ml Alprazolam (Xanax) 0.25 - 0.5 mg PO 0200,0800,1400,2000 [facility] Last Admin: 12/14/17 07:55 Dose: 0.25 mg Alprazolam (Xanax) 0.25 mg PO Q8H PRN PRN Reason: Anxiety Amlodipine Besylate (Norvasc) 5 mg PO DAILY [facility] Last Admin: 12/14/17 06:58 Dose: 5 mg Budesonide (Pulmicort) 0.5 mg NEB 0700,1900 [facility] Last Admin: 12/14/17 06:39 Dose: 0.5 mg Ceftriaxone Sodium (Rocephin) 1 gm IVPUSH Q24H [facility] Enoxaparin Sodium (Lovenox) 40 mg SUBCUT Q24H [facility] Furosemide (Lasix) 20 mg PO DAILY [facility] Last Admin: 12/14/17 06:59 Dose: 20 mg Guaifenesin (Organ-I Nr) 400 mg PO TID [facility] Last Admin: 12/14/17 08:00 Dose: Not Given Lactated Ringer's (Ringers, Lactated) 1,000 mls @ 75 mls/hr IV ASDIRECTED [facility] Last Admin: 12/14/17 08:01 Dose: 75 mls/hr Ibuprofen (Motrin) 400 mg PO Q6H PRN PRN Reason: Pain (mild 1-3) Last Admin: 12/14/17 08:10 Dose: 400 mg Magnesium Hydroxide (Milk Of Magnesia) 30 ml PO Q12H PRN PRN Reason: Constipation Nicotine (Habitrol) 21 mg TOP DAILY [facility] Last Admin: 12/14/17 07:55 Dose: 21 mg Ptom Roflumilast ([Daliresp] 500 Mcg) 250 mcg PO DAILY [facility] Last Admin: 12/14/17 07:00 Dose: 250 mcg Ondansetron HCl (Zofran Odt) 4 mg PO Q4H PRN PRN Reason: nausea, able to take PO Ondansetron HCl (Zofran) 4 mg IV Q4H PRN PRN Reason: Nausea/Vomiting Pantoprazole Sodium (Protonix Iv) 40 mg IVPUSH Q24H [facility] Polyethylene Glycol (Miralax) 17 gm PO BID [facility] Last Admin: 12/14/17 08:00 Dose: Not Given Discontinued Medications Albuterol (Proventil Neb Soln) 2.5 mg INH Q6H [facility] Last Admin: 12/13/17 11:45 Dose: Not Given Albuterol (Proventil Neb Soln) 2.5 mg INH 0700,1900 [facility] Last Admin: 12/13/17 19:02 Dose: 2.5 mg Albuterol/Ipratropium (Duoneb 3.0-0.5 Mg/3 Ml) 3 ml NEB Q4H PRN PRN Reason: Dyspnea Last Admin: 12/13/17 14:42 Dose: 3 ml Albuterol/Ipratropium (Duoneb 3.0-0.5 Mg/3 Ml) 3 ml NEB Q4H [facility] Last Admin: 12/13/17 17:49 Dose: Not Given Albuterol/Ipratropium (Duoneb 3.0-0.5 Mg/3 Ml) 3 ml NEB 6XDAY [facility] Albuterol/Ipratropium (Duoneb 3.0-0.5 Mg/3 Ml) 3 ml NEB Q4H [facility] Alprazolam (Xanax) 0.25 - 0.5 mg PO Q6H PRN PRN Reason: Anxiety Last Admin: 12/13/17 06:05 Dose: 0.25 mg Ceftriaxone Sodium (Rocephin) 1 gm IVPUSH Q24H [facility] Last Admin: 12/14/17 03:57 Dose: 1 gm Enoxaparin Sodium (Lovenox) 40 mg SUBCUT Q24H [facility] Last Admin: 12/14/17 06:39 Dose: 40 mg Heparin Sodium (Porcine) (Heparin Lock Flush 100 Units/Ml) Confirm Administered Dose 500 units .ROUTE .STK-MED ONE Stop: 12/13/17 05:23 Last Admin: 12/13/17 05:57 Dose: Not Given Ipratropium [place] (Atrovent) 0.5 mg NEB Q4H PRN PRN Reason: Dyspnea Lidocaine/Prilocaine (Emla Crm) Confirm Administered Dose 5 gm .ROUTE .STK-MED ONE Stop: 12/13/17 04:38 Last Admin: 12/13/17 05:37 Dose: 1 applic Non-Formulary Medication (Naproxen Sodium [Aleve]) 220 mg PO QID PRN PRN Reason: Pain Non-Formulary Medication (Olanzapine [Zyprexa]) 5 mg PO DAILY [facility] Last Admin: 12/14/17 11:07 Dose: Not Given Pantoprazole Sodium (Protonix Iv) 40 mg IVPUSH Q24H [facility] Last Admin: 12/14/17 06:39 Dose: 40 mg - Exam Quality Assessment: DVT Prophylaxis. No: Supplemental Oxygen General: Alert, Oriented, No Acute Distress Neck: Supple Lungs: Clear to Auscultation, Normal Respiratory Effort, Decreased Breath Sounds Cardiovascular: Regular Rate, Regular Rhythm GI/Abdominal Exam: Normal Bowel Sounds, Soft, Non-Tender, No Organomegaly, No Distention, No Abnormal Bruit, No Mass, Pelvis Stable Extremities: Normal Inspection, Normal Range of Motion, Non-Tender, Normal Capillary Refill, Pedal Edema (trace) Skin: Warm, Dry, Intact Neurological: No New Focal Deficit Psy/Mental Status: Anxious - Problem List & Annotations (1) Breast cancer, right breast SNOMED Code(s): 483912627 Code(s): C50.911 - MALIGNANT NEOPLASM OF UNSP SITE OF RIGHT FEMALE BREAST Status: Acute Current Visit: Yes (2) Fever SNOMED Code(s): 589406459 Code(s): R50.9 - FEVER, UNSPECIFIED Status: Acute Priority: High Current Visit: Yes (3) Neutrophilic leukocytosis SNOMED Code(s): 895956629, 327490403 Code(s): D72.9 - DISORDER OF WHITE BLOOD CELLS, UNSPECIFIED Status: Acute Priority: High Current Visit: No (4) COPD (chronic obstructive pulmonary disease) SNOMED Code(s): 47585495 Code(s): J44.9 - CHRONIC OBSTRUCTIVE PULMONARY DISEASE, UNSPECIFIED Status : Chronic Priority: High Current Visit: No Qualifiers: COPD type: unspecified COPD Qualified Code(s): J44.9 - Chronic obstructive pulmonary disease, unspecified - Problem List Review Problem List Initiated/Reviewed/Updated: Yes - My Orders Last 24 Hours: My Active Orders 12/13/17 17:07 ALPRAZolam [Xanax] 0.25 mg PO Q8H PRN - Assessment Assessment:: Fever Right breast cancer status post lumpectomy currently undergoing chemotherapy Neutrophilic Leukocytosis COPD without acute exacerbation - Plan Plan:: Urine culture negative. Shows contamination. Blood cultures remain negative to date. Patient reports she is feeling much better this morning. She reports her fever broke last night and now she feels much better. WBC down to 10.9 from 13.7 yesterday. CRP slightly increased from yesterday 4.8 to 7.2. Platelets stable at 441. Hgb stable at 11.2 Will continue prophylactic antibiotics for at least one more day. Continue to monitor for fevers. Saline lock IV Recheck labs in am Anticipate discharge 1-2 days.
[2017-12-14] MEDS: ALPRAZolam 0.25 MG Tab PO PRN (17:09)
[2017-12-14] MEDS: Albuterol 0.083% 2.5 MG/3 ML Neb Soln NEB SCH (18:41)
[2017-12-15] MEDS: Acetaminophen 325 MG Tab PO PRN ×2 (00:46→22:39)
[2017-12-15] MEDS: Albuterol/Ipratropium 3.0-0.5 MG/3 ML Neb Soln INH SCH ×6 (02:15→22:33)
[2017-12-15] MEDS: ALPRAZolam 0.25 MG Tab PO SCH ×4 (02:15→19:31)
[2017-12-15] MEDS: Ibuprofen 200 MG Tab PO PRN ×3 (05:31→19:31)
[2017-12-15] MEDS: Budesonide 0.5 MG/2 ML Neb Susp NEB SCH ×2 (07:04→19:18)
[2017-12-15] MEDS: Albuterol 0.083% 2.5 MG/3 ML Neb Soln NEB SCH ×2 (07:04→19:18)
[2017-12-15] MEDS: amLODIPine 2.5 MG Tab PO SCH (07:27)
[2017-12-15] MEDS: Furosemide 20 MG Tab PO SCH (07:28)
[2017-12-15] MEDS: Nicotine 21 MG/24 Hr Patch TOP SCH (07:32)
[2017-12-15] MEDS: Enoxaparin 40 MG/0.4 ML Syringe SUBCUT SCH (07:34)
[2017-12-15] MEDS: Pantoprazole 40 MG Vial IVPUSH SCH (07:36)
[2017-12-15] MEDS: ROFLUMILAST 500 MCG PO SCH (07:44)
[2017-12-15] MEDS: ALPRAZolam 0.25 MG Tab PO PRN (07:52)
[2017-12-15] MEDS ORDERED: cefTRIAXone 1 GM Vial IVPUSH SCH (08:00)
--- NOTE | 2017-12-15 10:28 | PCM.PN ---
- General Info Date of Service: 12/15/17 Admission Dx/Problem (Free Text): Fever Suspected UTI Undergoing chemotherapy for right breast cancer status post lumpectomy Subjective Update: Lani is a 67 year old female who was admitted to the hospital with fever. She is currently undergoing chemotherapy for right breast cancer. She reports she is on her 2nd round. She is status post lumpectomy with clear margins and negative lymph nodes. She presented to the ED with fever of 102. Had blood and urine cultures collected and was sent home. She then presented to the ED again with continued fevers and was admitted and started on IV Rocephin. She did have fever of 102.2 deg F. She reports that last evening she had fever again. She reports she continues to feel weak. At time of rounds she is resting comfortably at edge of bed. She is very anxious , but appears in no acute distress. Functional Status: Reports: Pain Controlled, Tolerating Diet, Ambulating, Urinating. Denies: New Symptoms - Review of Systems General: Reports: Fever, Weakness, Fatigue, Chills HEENT: Reports: Sinus Congestion, Rhinitis Pulmonary: Reports: Cough. Denies: Shortness of Breath, Pleuritic Chest Pain, Sputum, Wheezing Cardiovascular: Reports: Dyspnea on Exertion. Denies: Chest Pain, Palpitations , Edema, Lightheadedness Gastrointestinal: Reports: No Symptoms. Denies: Abdominal Pain, Decreased Appetite, Diarrhea, Nausea, Vomiting Genitourinary: Reports: No Symptoms. Denies: Dysuria, Frequency, Urgency Skin: Reports: No Symptoms Neurological: Reports: Weakness. Denies: Dizziness Psychiatric: Reports: Anxiety - Patient Data Vitals - Most Recent: Last Vital Signs Temp 98.6 F 12/15/17 07:12 Pulse 106 H 12/15/17 07:12 Resp 18 12/15/17 07:12 BP 104/50 L 12/15/17 07:27 Pulse Ox 92 L 12/15/17 07:12 Weight - Most Recent: 159 lb 4.8 oz Lab Results Last 24 Hours: Laboratory Results - last 24 hr 12/14/17 12/14/17 Range/Units 11:00 11:00 WBC 10.9 H (5.0-10.0) 10^3/uL RBC 3.46 L (4.00-5.50) 10^6/uL Hgb 11.2 L (12.0-16.0) g/dL Hct 33.0 L (37.0-47.0) % MCV 95.4 H (82.0-94.0) fL MCH 32.4 H (27.0-32.0) pg MCHC 33.9 (33.0-38.0) g/dL RDW Coeff of Lucille 13.9 (11.0-15.0) % Plt Count 441 H (150-400) 10^3/uL Add Manual Diff Yes Neutrophils % (Manual) 72 (35-85) % Band Neutrophils % 4 (0-5) % Lymphocytes % (Manual) 6 L (21-55) % Monocytes % (Manual) 16 H (2-12) % Metamyelocytes % 2 % Absolute Neutrophils 8.28 H (1.80-7.00) 10^3/uL Lymphocytes # (Manual) 0.65 L (1.00-4.80) 10^3/uL Monocytes # (Manual) 1.74 H (0.00-0.80) 10^3/uL C-Reactive Protein 7.2 H (0.2-0.8) mg/dL Med Orders - Current: Current Medications Acetaminophen (Tylenol) 650 mg PO Q4H PRN PRN Reason: Pain (Mild 1-3)/fever Last Admin: 12/15/17 00:46 Dose: 650 mg Albuterol (Ventolin Hfa) 0 gm INH Q4H PRN PRN Reason: Shortness of Breath Albuterol (Proventil Neb Soln) 2.5 mg NEB 0700,1900 [facility] Last Admin: 12/15/17 07:04 Dose: 2.5 mg Albuterol/Ipratropium (Duoneb 3.0-0.5 Mg/3 Ml) 3 ml INH Q4H [facility] Last Admin: 12/15/17 06:23 Dose: 3 ml Alprazolam (Xanax) 0.25 - 0.5 mg PO 0200,0800,1400,2000 [facility] Last Admin: 12/15/17 02:15 Dose: 0.5 mg Alprazolam (Xanax) 0.25 mg PO Q8H PRN PRN Reason: Anxiety Last Admin: 12/15/17 07:52 Dose: 0.25 mg Amlodipine Besylate (Norvasc) 5 mg PO DAILY [facility] Last Admin: 12/15/17 07:27 Dose: 5 mg Budesonide (Pulmicort) 0.5 mg NEB 699,1900 [facility] Last Admin: 12/15/17 07:04 Dose: 0.5 mg Ceftriaxone Sodium (Rocephin) 1 gm IVPUSH Q24H [facility] Last Admin: 12/15/17 07:44 Dose: 1 gm Enoxaparin Sodium (Lovenox) 40 mg SUBCUT Q24H [facility] Last Admin: 12/15/17 07:34 Dose: 40 mg Furosemide (Lasix) 20 mg PO DAILY [facility] Last Admin: 12/15/17 07:28 Dose: 20 mg Ibuprofen (Motrin) 400 mg PO Q6H PRN PRN Reason: Pain (mild 1-3) Last Admin: 12/15/17 05:31 Dose: 400 mg Magnesium Hydroxide (Milk Of Magnesia) 30 ml PO Q12H PRN PRN Reason: Constipation Nicotine (Habitrol) 21 mg TOP DAILY [facility] Last Admin: 12/15/17 07:32 Dose: 21 mg Ptom Roflumilast ([Daliresp] 500 Mcg) 250 mcg PO DAILY [facility] Last Admin: 12/15/17 07:44 Dose: Not Given Ondansetron HCl (Zofran Odt) 4 mg PO Q4H PRN PRN Reason: nausea, able to take PO Last Admin: 12/14/17 18:06 Dose: 4 mg Ondansetron HCl (Zofran) 4 mg IV Q4H PRN PRN Reason: Nausea/Vomiting Pantoprazole Sodium (Protonix Iv) 40 mg IVPUSH Q24H [facility] Last Admin: 12/15/17 07:36 Dose: 40 mg Discontinued Medications Albuterol (Proventil Neb Soln) 2.5 mg INH Q6H [facility] Last Admin: 12/13/17 11:45 Dose: Not Given Albuterol (Proventil Neb Soln) 2.5 mg INH 699,1900 [facility] Last Admin: 12/13/17 19:02 Dose: 2.5 mg Albuterol/Ipratropium (Duoneb 3.0-0.5 Mg/3 Ml) 3 ml NEB Q4H PRN PRN Reason: Dyspnea Last Admin: 12/13/17 14:42 Dose: 3 ml Albuterol/Ipratropium (Duoneb 3.0-0.5 Mg/3 Ml) 3 ml NEB Q4H [facility] Last Admin: 12/13/17 17:49 Dose: Not Given Albuterol/Ipratropium (Duoneb 3.0-0.5 Mg/3 Ml) 3 ml NEB 6XDAY [facility] Albuterol/Ipratropium (Duoneb 3.0-0.5 Mg/3 Ml) 3 ml NEB Q4H [facility] Alprazolam (Xanax) 0.25 - 0.5 mg PO Q6H PRN PRN Reason: Anxiety Last Admin: 12/13/17 06:05 Dose: 0.25 mg Ceftriaxone Sodium (Rocephin) 1 gm IVPUSH Q24H [facility] Last Admin: 12/14/17 03:57 Dose: 1 gm Enoxaparin Sodium (Lovenox) 40 mg SUBCUT Q24H [facility] Last Admin: 12/14/17 06:39 Dose: 40 mg Guaifenesin (Organ-I Nr) 400 mg PO TID [facility] Last Admin: 12/14/17 08:00 Dose: Not Given Heparin Sodium (Porcine) (Heparin Lock Flush 100 Units/Ml) Confirm Administered Dose 500 units .ROUTE .STK-MED ONE Stop: 12/13/17 05:23 Last Admin: 12/13/17 05:57 Dose: Not Given Lactated Ringer's (Ringers, Lactated) 1,000 mls @ 75 mls/hr IV ASDIRECTED [facility] Last Admin: 12/14/17 08:01 Dose: 75 mls/hr Ipratropium [place] (Atrovent) 0.5 mg NEB Q4H PRN PRN Reason: Dyspnea Lidocaine/Prilocaine (Emla Crm) Confirm Administered Dose 5 gm .ROUTE .STK-MED ONE Stop: 12/13/17 04:38 Last Admin: 12/13/17 05:37 Dose: 1 applic Non-Formulary Medication (Naproxen Sodium [Aleve]) 220 mg PO QID PRN PRN Reason: Pain Non-Formulary Medication (Olanzapine [Zyprexa]) 5 mg PO DAILY [facility] Last Admin: 12/14/17 11:07 Dose: Not Given Pantoprazole Sodium (Protonix Iv) 40 mg IVPUSH Q24H [facility] Last Admin: 12/14/17 06:39 Dose: 40 mg Polyethylene Glycol (Miralax) 17 gm PO BID [facility] Last Admin: 12/14/17 08:00 Dose: Not Given - Exam Quality Assessment: DVT Prophylaxis General: Alert, Oriented, No Acute Distress Neck: Supple Lungs: Clear to Auscultation, Normal Respiratory Effort Cardiovascular: Regular Rate, Regular Rhythm GI/Abdominal Exam: Normal Bowel Sounds, Soft, Non-Tender, No Organomegaly, No Distention, No Abnormal Bruit, No Mass, Pelvis Stable Back Exam: Normal Inspection, Full Range of Motion Extremities: Normal Inspection, Normal Range of Motion, Non-Tender, No Pedal Edema, Normal Capillary Refill Skin: Warm, Dry, Intact, Other (slight erythema to anterior port area) Neurological: No New Focal Deficit Psy/Mental Status: Labile Mood, Anxious - Problem List & Annotations (1) Breast cancer, right breast SNOMED Code(s): 590296946 Code(s): C50.911 - MALIGNANT NEOPLASM OF UNSP SITE OF RIGHT FEMALE BREAST Status: Acute Current Visit: Yes (2) Fever SNOMED Code(s): 631884659 Code(s): R50.9 - FEVER, UNSPECIFIED Status: Acute Priority: High Current Visit: Yes Qualifiers: Fever type: drug-induced Qualified Code(s): R50.2 - Drug induced fever (3) Neutrophilic leukocytosis SNOMED Code(s): 456480228, 505590891 Code(s): D72.9 - DISORDER OF WHITE BLOOD CELLS, UNSPECIFIED Status: Acute Priority: High Current Visit: No (4) COPD (chronic obstructive pulmonary disease) SNOMED Code(s): 63943004 Code(s): J44.9 - CHRONIC OBSTRUCTIVE PULMONARY DISEASE, UNSPECIFIED Status : Chronic Priority: High Current Visit: No Qualifiers: COPD type: unspecified COPD Qualified Code(s): J44.9 - Chronic obstructive pulmonary disease, unspecified - Problem List Review Problem List Initiated/Reviewed/Updated: Yes - My Orders Last 24 Hours: My Active Orders 12/15/17 09:58 C-REACTIVE PROTEIN [CHEM] Routine CBC WITH AUTO DIFF [HEME] Stat - Assessment Assessment:: Fever Right breast cancer status post lumpectomy currently undergoing chemotherapy Neutrophilic Leukocytosis COPD without acute exacerbation - Plan Plan:: 12/14/2017 Urine culture negative. Shows contamination. Blood cultures remain negative to date. Patient reports she is feeling much better this morning. She reports her fever broke last night and now she feels much better. WBC down to 10.9 from 13.7 yesterday. CRP slightly increased from yesterday 4.8 to 7.2. Platelets stable at 441. Hgb stable at 11.2 Will continue prophylactic antibiotics for at least one more day. Continue to monitor for fevers. Saline lock IV Recheck labs in am Anticipate discharge 1-2 days. 12/15/2017 Patient spiked fever of 101.3 again last evening. She is afebrile this morning. Reports she feels much better when she doesnt have a fever. Continued to be weak but no new symptoms. Consulted with [facility] Dr. El regarding ongoing fevers, who recommended a dose of dexamethasone and Claritin daily as it could likely be reaction to Neulasta. Recommended stopping Rocephin if no obvious source of infection. Urine and blood cultures remain negative. Did relay that we could switch to azithromycin as this would cover anything from port site just as a precaution. She recommended that we discharge from hospital, as she is low risk with the fever and no source of infection. Discussed with patient that she doesn 't need to be hospitalized and is putting herself at more risk being in the hospital with bacteria here. She reports she can't get by at home by herself feeling this poorly. She also refuses dexamethasone stating she is allergic and it "makes her crazy." She also reports Claritin "doesn't work for her." I discussed with her that I am not treating her chronic sinusitis with this, rather her possible reaction to the Neulasta. We will start Claritin, stop Rocephin, and start azithromycin and continue to monitor patients fever. WBC did increase to 12.1 from 10.9 yesterday. CRP also did increase from 7.2 to 9.1. Will continue close observation of fever. Recheck labs in am. Anticipate discharge tomorrow. This was discussed with patient, who verbalized understanding and was agreeable with plan.
[2017-12-15] MEDS ORDERED: Azithromycin 250 MG Tab PO ONE (11:54)
[2017-12-15] MEDS: Loratadine 10 MG Tab PO SCH (12:13)
[2017-12-16] MEDS: ALPRAZolam 0.25 MG Tab PO SCH ×2 (02:26→08:31)
[2017-12-16] MEDS: Ibuprofen 200 MG Tab PO PRN ×2 (02:27→11:15)
[2017-12-16] MEDS: Albuterol/Ipratropium 3.0-0.5 MG/3 ML Neb Soln INH SCH ×3 (02:28→10:29)
[2017-12-16] MEDS: Budesonide 0.5 MG/2 ML Neb Susp NEB SCH (06:57)
[2017-12-16] MEDS: Albuterol 0.083% 2.5 MG/3 ML Neb Soln NEB SCH (06:57)
[2017-12-16 07:45] VITALS: BP 96/64
[2017-12-16] MEDS ORDERED: Azithromycin 250 MG Tab PO SCH (08:00)
[2017-12-16] MEDS: Furosemide 20 MG Tab PO SCH (08:09)
[2017-12-16] MEDS: amLODIPine 2.5 MG Tab PO SCH (08:09)
[2017-12-16] MEDS: Enoxaparin 40 MG/0.4 ML Syringe SUBCUT SCH (08:09)
[2017-12-16] MEDS: Loratadine 10 MG Tab PO SCH (08:09)
[2017-12-16] MEDS: Pantoprazole 40 MG Vial IVPUSH SCH (08:09)
[2017-12-16] MEDS: Nicotine 21 MG/24 Hr Patch TOP SCH (08:09)
[2017-12-16] MEDS: ROFLUMILAST 500 MCG PO SCH (08:31)
--- NOTE | 2017-12-16 21:49 | PCM.DCSUM1 ---
Discharge Summary - Hospital Course Free Text/Narrative:: Patient had presented x2 to ER with complaints of fever. She is 2 weeks out from her last chemo session. Started running temps of 102 at home and was advised to present to ER. Initially felt had UTI, was started on Bactrim. Blood cultures and urine culture were ordered. Sent home and advised to treat fever with tylenol and ibuprofen. Returned back to ER when spiked a fever again so admitted for IV fluids and antibiotics (Rocephin). Diagnosis: Stroke: No Modified [place] Scale: No Symptoms at All Modified [place] Scale Score: 0 - Discharge Data Discharge Date: 12/16/17 Discharge Disposition: Home, Self-Care 01 Condition: Good - Discharge Diagnosis/Problem(s) (1) Fever SNOMED Code(s): 625829105 ICD Code: R50.9 - FEVER, UNSPECIFIED Status: Acute Priority: High Qualifiers: Fever type: drug-induced Qualified Code(s): R50.2 - Drug induced fever (2) UTI (urinary tract infection) SNOMED Code(s): 78057735 ICD Code: N39.0 - URINARY TRACT INFECTION, SITE NOT SPECIFIED Status: Acute Qualifiers: Urinary tract infection type: acute cystitis Hematuria presence: without hematuria Qualified Code(s): N30.00 - Acute cystitis without hematuria - Patient Summary/Data Complications: none Hospital Course: Patient continues to have fevers off an on through stay. Feels weak and short of breath at times. She does get very anxious when spikes a fever but it responds well with ibuprofen. She has not had increased cough. Blood cultures negative. Urine culture shows contamination. Tana did contact [facility] yesterday and spoke with Dr. Khan. She does believe that her fever is in response to Neulasta as no source of infection has been found. [place] more risky of infection involved by staying in hospital due to history of chemo. She was resistant to that yesterday. Advised to give dexamethasone but patient refused as states does not feel well on that. She was started on claritin to help with the reaction. Advised to give course of Zithromax. Patient was agreeable to discharge this am, nervous though as concerned about being alone and having fevers. Informed of risk of exposure by Dr. Nicole. Will discharge home. Push fluids. Continue to treat fever with tylenol and ibuprofen. Chemo on hold this week. [facility] aware and will call patient with next scheduled date once patient is feeling better. - Patient Instructions Diet: Usual Diet as Tolerated Activity: As Tolerated - Discharge Plan *PRESCRIPTION DRUG MONITORING PROGRAM REVIEWED*: No *COPY OF PRESCRIPTION DRUG MONITORING REPORT IN PATIENT GUERO: No Prescriptions/Med Rec: Azithromycin [Zithromax] 250 mg PO DAILY #4 tablet Loratadine [Claritin] 10 mg PO DAILY #30 tablet Home Medications: Home Meds Albuterol [Proair HFA] 2 puff IH Q4H PRN 03/05/13 [History] Naproxen Sodium [Aleve] 220 mg PO QID PRN 03/05/13 [History] amLODIPine [Norvasc] 5 mg PO DAILY 07/05/16 [History] ALPRAZolam [Alprazolam] 0.25 mg PO QID PRN #120 tablet 09/11/16 [Rx] Budesonide [Pulmicort] 0.5 mg NEB 0700,1900 01/14/17 [History] Nicotine [Nicotine Patch] 21 mg TOP DAILY 01/14/17 [History] Arformoterol [Brovana] 1 ampule INH BID 09/24/17 [History] Ipratropium [Atrovent] 1 inh NEB Q4H PRN 11/10/17 [History] Polyethylene Glycol 3350 [MiraLAX] 17 gm PO BID 11/10/17 [History] guaiFENesin [Mucinex] 600 mg PO BID 11/10/17 [History] Ranitidine HCl [Zantac 75] 75 mg PO DAILY 11/14/17 [History] Roflumilast [Daliresp] 250 mcg PO DAILY 11/14/17 [History] Furosemide [Lasix] 20 mg PO DAILY 12/12/17 [History] OLANZapine [ZyPREXA] 5 mg PO DAILY 12/12/17 [History] Azithromycin [Zithromax] 250 mg PO DAILY #4 tablet 12/16/17 [Rx] Loratadine [Claritin] 10 mg PO DAILY #30 tablet 12/16/17 [Rx] Patient Handouts: Fever, Adult, Urinary Tract Infection, Adult Forms: ED Department Discharge Referrals: Gaston Nicole MD [Primary Care Provider] - (Follow up with Dr. Nicole in 10 days) - Discharge Summary/Plan Comment DC Time >30 min.: No Discharge Summary/Plan Comment: Discharge home. Zithromax 250 mg daily for 4 more days. Push fluids. Tylenol or ibuprofen for fever or discomfort. Follow up with oncology as per their recommendations. - General Info Date of Service: 12/16/17 Admission Dx/Problem (Free Text: Fever Suspected UTI Undergoing chemotherapy for right breast cancer status post lumpectomy Functional Status: Reports: Pain Controlled, Tolerating Diet, Ambulating - Review of Systems General: Reports: Fever, Weakness, Fatigue HEENT: Reports: Rhinitis Pulmonary: Reports: Shortness of Breath, Cough Cardiovascular: Reports: Edema. Denies: Chest Pain, Lightheadedness Gastrointestinal: Denies: Abdominal Pain, Nausea, Vomiting Genitourinary: Reports: No Symptoms Musculoskeletal: Reports: Leg Pain Skin: Reports: Bruising Neurological: Reports: Weakness Psychiatric: Reports: Anxiety - Patient Data Vitals - Most Recent: Last Vital Signs Temp 98.8 F 12/16/17 07:45 Pulse 109 H 12/16/17 07:45 Resp 20 12/16/17 07:45 BP 96/64 12/16/17 07:45 Pulse Ox 91 L 12/16/17 07:45 Weight - Most Recent: 159 lb 4.8 oz Lab Results - Last 24 hrs: Laboratory Results - last 24 hr 12/16/17 12/16/17 Range/Units 05:11 07:00 WBC 11.0 H (5.0-10.0) 10^3/uL RBC 3.45 L (4.00-5.50) 10^6/uL Hgb 11.0 L (12.0-16.0) g/dL Hct 33.8 L (37.0-47.0) % MCV 98.0 H (82.0-94.0) fL MCH 31.9 (27.0-32.0) pg MCHC 32.5 L (33.0-38.0) g/dL RDW Coeff of Lucille 14.2 (11.0-15.0) % Plt Count 482 H (150-400) 10^3/uL Neut % (Auto) 70.7 (35-85) % Lymph % (Auto) 8.9 L (10-55) % [place] % (Auto) 18.7 H (0-16) % Eos % (Auto) 0.3 (0-5) % Baso % (Auto) 1.4 (0-3) % Neut # (Auto) 7.77 H (1.80-7.00) 10^3/uL Lymph # (Auto) 0.98 L (1.00-4.80) 10^3/uL [place] # (Auto) 2.06 H (0.00-0.80) 10^3/uL Eos # (Auto) 0.03 (0.00-0.45) 10^3/uL Baso # (Auto) 0.15 10^3/uL C-Reactive Protein 8.9 H (0.2-0.8) mg/dL Med Orders - Current: Current Medications Discontinued Medications Acetaminophen (Tylenol) 650 mg PO Q4H PRN PRN Reason: Pain (Mild 1-3)/fever Last Admin: 12/15/17 22:39 Dose: 650 mg Albuterol (Ventolin Hfa) 0 gm INH Q4H PRN PRN Reason: Shortness of Breath Albuterol (Proventil Neb Soln) 2.5 mg INH Q6H ALE Last Admin: 12/13/17 11:45 Dose: Not Given Albuterol (Proventil Neb Soln) 2.5 mg INH 0700,1900 ALE Last Admin: 12/13/17 19:02 Dose: 2.5 mg Albuterol (Proventil Neb Soln) 2.5 mg NEB 0700,1900 [facility] Last Admin: 12/16/17 06:57 Dose: 2.5 mg Albuterol/Ipratropium (Duoneb 3.0-0.5 Mg/3 Ml) 3 ml NEB Q4H PRN PRN Reason: Dyspnea Last Admin: 12/13/17 14:42 Dose: 3 ml Albuterol/Ipratropium (Duoneb 3.0-0.5 Mg/3 Ml) 3 ml NEB Q4H ALE Last Admin: 12/13/17 17:49 Dose: Not Given Albuterol/Ipratropium (Duoneb 3.0-0.5 Mg/3 Ml) 3 ml NEB 6XDAY ALE Albuterol/Ipratropium (Duoneb 3.0-0.5 Mg/3 Ml) 3 ml NEB Q4H ALE Albuterol/Ipratropium (Duoneb 3.0-0.5 Mg/3 Ml) 3 ml INH Q4H [facility] Last Admin: 12/16/17 10:29 Dose: 3 ml Alprazolam (Xanax) 0.25 - 0.5 mg PO Q6H PRN PRN Reason: Anxiety Last Admin: 12/13/17 06:05 Dose: 0.25 mg Alprazolam (Xanax) 0.25 - 0.5 mg PO 0200,0800,1400,2000 [facility] Last Admin: 12/16/17 08:31 Dose: 0.25 mg Alprazolam (Xanax) 0.25 mg PO Q8H PRN PRN Reason: Anxiety Last Admin: 12/15/17 07:52 Dose: 0.25 mg Amlodipine Besylate (Norvasc) 5 mg PO DAILY [facility] Last Admin: 12/16/17 08:09 Dose: 5 mg Azithromycin (Zithromax) 500 mg PO ONETIME ONE Stop: 12/15/17 11:55 Last Admin: 12/15/17 12:13 Dose: 500 mg Azithromycin (Zithromax) 250 mg PO DAILY [facility] Stop: 12/19/17 08:01 Last Admin: 12/16/17 08:09 Dose: 250 mg Budesonide (Pulmicort) 0.5 mg NEB 0700,1900 [facility] Last Admin: 12/16/17 06:57 Dose: 0.5 mg Ceftriaxone Sodium (Rocephin) 1 gm IVPUSH Q24H [facility] Last Admin: 12/14/17 03:57 Dose: 1 gm Ceftriaxone Sodium (Rocephin) 1 gm IVPUSH Q24H [facility] Last Admin: 12/15/17 07:44 Dose: 1 gm Enoxaparin Sodium (Lovenox) 40 mg SUBCUT Q24H [facility] Last Admin: 12/14/17 06:39 Dose: 40 mg Enoxaparin Sodium (Lovenox) 40 mg SUBCUT Q24H [facility] Last Admin: 12/16/17 08:09 Dose: 40 mg Furosemide (Lasix) 20 mg PO DAILY [facility] Last Admin: 12/16/17 08:09 Dose: 20 mg Guaifenesin (Organ-I Nr) 400 mg PO TID [facility] Last Admin: 12/14/17 08:00 Dose: Not Given Heparin Sodium (Porcine) (Heparin Lock Flush 100 Units/Ml) Confirm Administered Dose 500 units .ROUTE .STK-MED ONE Stop: 12/13/17 05:23 Last Admin: 12/13/17 05:57 Dose: Not Given Heparin Sodium (Porcine) (Heparin Lock Flush 100 Units/Ml) Confirm Administered Dose 500 units .ROUTE .STK-MED ONE Stop: 12/16/17 07:04 Last Admin: 12/16/17 12:37 Dose: Not Given Heparin Sodium (Porcine) (Heparin Lock Flush 100 Units/Ml) Confirm Administered Dose 500 units .ROUTE .STK-MED ONE Stop: 12/16/17 12:01 Last Admin: 12/16/17 12:37 Dose: 500 units Lactated Ringer's (Ringers, Lactated) 1,000 mls @ 75 mls/hr IV ASDIRECTED [facility] Last Admin: 12/14/17 08:01 Dose: 75 mls/hr Ibuprofen (Motrin) 400 mg PO Q6H PRN PRN Reason: Pain (mild 1-3) Last Admin: 12/16/17 11:15 Dose: 400 mg Ipratropium [place] (Atrovent) 0.5 mg NEB Q4H PRN PRN Reason: Dyspnea Lidocaine/Prilocaine (Emla Crm) Confirm Administered Dose 5 gm .ROUTE .STK-MED ONE Stop: 12/13/17 04:38 Last Admin: 12/13/17 05:37 Dose: 1 applic Loratadine (Claritin) 10 mg PO DAILY [facility] Last Admin: 12/16/17 08:09 Dose: 10 mg Magnesium Hydroxide (Milk Of Magnesia) 30 ml PO Q12H PRN PRN Reason: Constipation Nicotine (Habitrol) 21 mg TOP DAILY [facility] Last Admin: 12/16/17 08:09 Dose: 21 mg Non-Formulary Medication (Naproxen Sodium [Aleve]) 220 mg PO QID PRN PRN Reason: Pain Non-Formulary Medication (Olanzapine [Zyprexa]) 5 mg PO DAILY [facility] Last Admin: 12/14/17 11:07 Dose: Not Given Ptom Roflumilast ([Daliresp] 500 Mcg) 250 mcg PO DAILY [facility] Last Admin: 12/16/17 08:31 Dose: Not Given Ondansetron HCl (Zofran Odt) 4 mg PO Q4H PRN PRN Reason: nausea, able to take PO Last Admin: 12/14/17 18:06 Dose: 4 mg Ondansetron HCl (Zofran) 4 mg IV Q4H PRN PRN Reason: Nausea/Vomiting Pantoprazole Sodium (Protonix Iv) 40 mg IVPUSH Q24H [facility] Last Admin: 12/14/17 06:39 Dose: 40 mg Pantoprazole Sodium (Protonix Iv) 40 mg IVPUSH Q24H [facility] Last Admin: 12/16/17 08:09 Dose: 40 mg Polyethylene Glycol (Miralax) 17 gm PO BID [facility] Last Admin: 12/14/17 08:00 Dose: Not Given - Exam General: Reports: Alert, Oriented HEENT: Reports: Mucous Membr. Moist/[place] Neck: Reports: Supple Lungs: Reports: Decreased Breath Sounds Cardiovascular: Reports: Regular Rate, Regular Rhythm GI/Abdominal Exam: Normal Bowel Sounds, Soft, Non-Tender Extremities: Normal Inspection, Pedal Edema (trace) Skin: Reports: Warm, Dry, Ecchymosis (on arms from previous IV and lab draws) Neurological: Reports: No New Focal Deficit
== END 2017-12-16 13:00 | disposition home or self-care (01) | DRG 864 ==
LOC: CC.ED 03:41 → CC.MS 04:34 → UNDOADMIN 04:34 → CC.MS 04:35
PROVIDERS: ADMIT Physician Assistant Medical; ATTEND Family Medicine
DX: N39.0 Urinary tract infection, site not specified (principal); C50.919 Malignant neoplasm of unspecified site of unspecified female breast; R50.2 Drug induced fever; T45.8X5A Adverse effect of other primarily systemic and hematological agents, initial encounter; D72.828 Other elevated white blood cell count; C50.911 Malignant neoplasm of unspecified site of right female breast; I10 Essential (primary) hypertension; J44.9 Chronic obstructive pulmonary disease, unspecified; F41.9 Anxiety disorder, unspecified; F17.210 Nicotine dependence, cigarettes, uncomplicated; Z88.8 Allergy status to other drugs, medicaments and biological substances; R53.1 Weakness; Z85.89 Personal history of malignant neoplasm of other organs and systems; Z87.01 Personal history of pneumonia (recurrent); Z88.5 Allergy status to narcotic agent; Z88.0 Allergy status to penicillin; Z88.1 Allergy status to other antibiotic agents; R50.9 Fever, unspecified; R06.02 Shortness of breath; Z91.030 Bee allergy status; Z79.899 Other long term (current) drug therapy; Z87.440 Personal history of urinary (tract) infections; Z90.710 Acquired absence of both cervix and uterus
CPT/HCPCS: 36415; 80048; 85025; 86140; 94640; 99284; A9270-GY; C9113; J0696; J1642; J1650; J7120; J7613-GY; J7620-GY

== ENCOUNTER 2017-12-23 14:16 | Observation (INO) | payer MEDICARE, OTHER ==
[2017-12-23] MEDS ORDERED: Sodium Chloride 0.9% 10 ML Syringe FLUSH PRN (15:20)
[2017-12-23] MEDS ORDERED: Temazepam 15 MG Cap PO PRN (15:20)
[2017-12-23] MEDS ORDERED: Albuterol/Ipratropium 3.0-0.5 MG/3 ML Neb Soln NEB ONE (15:26)
[2017-12-23] MEDS ORDERED: ALPRAZolam 0.25 MG Tab PO ONE (15:26)
[2017-12-23] MEDS ORDERED: Enoxaparin 40 MG/0.4 ML Syringe SUBCUT SCH ×2 (15:30→16:00)
[2017-12-23] MEDS ORDERED: Albuterol/Ipratropium 3.0-0.5 MG/3 ML Neb Soln ONE (15:50)
[2017-12-23] MEDS ORDERED: Albuterol/Ipratropium 3.0-0.5 MG/3 ML Neb Soln INH PRN (16:38)
[2017-12-23] MEDS ORDERED: Albuterol 8 GM Inhaler INH PRN (16:38)
[2017-12-23] MEDS: Piperacillin/Tazobactam 3.375 GM in Sodium Chloride 0.9% 50 ML IV SCH ×2 (16:54→22:29)
[2017-12-23] MEDS ORDERED: Nicotine 7 MG/24 Hr Patch TOP SCH (17:00)
[2017-12-23] MEDS ORDERED: Nicotine 21 MG/24 Hr Patch TOP SCH (17:03)
[2017-12-23] MEDS ORDERED: Ondansetron 4 MG Tab.DIS PO PRN (18:19)
[2017-12-23] MEDS: Budesonide 0.5 MG/2 ML Neb Susp NEB SCH (18:49)
[2017-12-23] MEDS: ARFORMOTEROL INH SCH ×2 (18:50→19:07)
[2017-12-23] MEDS: GUAIFENESIN 600 MG PO SCH (19:08)
[2017-12-23] MEDS: Ipratropium 0.02% 0.5 MG/2.5 ML Neb Soln NEB PRN (20:22)
[2017-12-23] MEDS: ALPRAZolam 0.25 MG Tab PO PRN (20:22)
[2017-12-24] MEDS: Piperacillin/Tazobactam 3.375 GM in Sodium Chloride 0.9% 50 ML IV SCH (04:02)
[2017-12-24] MEDS: Ipratropium 0.02% 0.5 MG/2.5 ML Neb Soln NEB PRN ×2 (04:12→07:33)
[2017-12-24] MEDS: Budesonide 0.5 MG/2 ML Neb Susp NEB SCH (06:59)
[2017-12-24] MEDS: ARFORMOTEROL INH SCH (06:59)
[2017-12-24] MEDS: GUAIFENESIN 600 MG PO SCH (07:29)
[2017-12-24] MEDS: ALPRAZolam 0.25 MG Tab PO PRN (07:33)
[2017-12-24 07:43] VITALS: BP 100/60
[2017-12-24] MEDS ORDERED: RANITIDINE HCL 75 MG PO SCH (08:00)
[2017-12-24] MEDS ORDERED: AMLODIPINE 5 MG PO SCH (08:00)
[2017-12-24] MEDS ORDERED: Furosemide 20 MG Tab PO SCH (08:00)
--- NOTE | 2017-12-25 15:02 | PCM.DCSUM1 ---
Discharge Summary - Hospital Course Free Text/Narrative:: Patient had presented to DR. Nicole for concerns of a rash on her legs and redness around her port site. Patient concerned rash was related to her chemotherapy. Dr. Nicole did note redness and small amount of purulent drainage was able to be expressed from the port incision site. She is very tender to the area. Has not had any fevers over the last few days. Does deal with swelling of her legs which has been better controlled now with chemo but admits does have difficulty sitting with her legs elevated. Admitted for IV Zosyn with plans to discharge in am to allow her to see her oncologist the next day. Labs were drawn, WBC 17. Neutrophil count 7.7. CRP 3.2 Diagnosis: Stroke: No Modified [place] Scale: No Symptoms at All Modified [place] Scale Score: 0 - Discharge Data Discharge Date: 12/24/17 Discharge Disposition: Home, Self-Care 01 Condition: Good - Patient Summary/Data Complications: none Hospital Course: Patient has done well overnight. No fevers. Was given Zosyn for cellulitis at the port site. Had recent blood cultures from within the port that were negative. She has tolerated meals well, ambulating well. Port site is mildly red, no drainage from the site this am, but remains tender. Does continue to have blotchy areas of redness to her lower extremities. As she has done well overnight, do feel it is safe to discharge and allow to go to [place] for her oncology appointment today. - Patient Instructions Diet: Usual Diet as Tolerated Activity: As Tolerated - Discharge Plan *PRESCRIPTION DRUG MONITORING PROGRAM REVIEWED*: No *COPY OF PRESCRIPTION DRUG MONITORING REPORT IN PATIENT GUERO: No Home Medications: Home Meds Albuterol [Proair HFA] 2 puff IH Q4H PRN 03/05/13 [History] amLODIPine [Norvasc] 5 mg PO DAILY 07/05/16 [History] ALPRAZolam [Alprazolam] 0.25 mg PO QID PRN #120 tablet 09/11/16 [Rx] Budesonide [Pulmicort] 0.5 mg NEB 0700,1900 01/14/17 [History] Nicotine [Nicotine Patch] 21 mg TOP DAILY 01/14/17 [History] Arformoterol [Brovana] 1 ampule INH BID 09/24/17 [History] Ipratropium [Atrovent] 1 inh NEB Q4H PRN 11/10/17 [History] guaiFENesin [Mucinex] 600 mg PO BID 11/10/17 [History] Ranitidine HCl [Zantac 75] 75 mg PO DAILY 11/14/17 [History] Furosemide [Lasix] 20 mg PO DAILY 12/12/17 [History] Albuterol/Ipratropium [DuoNeb 3.0-0.5 MG/3 ML] 3 ml INH Q4HR PRN 12/23/17 [ History] Patient Handouts: Cellulitis, Adult Referrals: Gaston Nicole MD [Primary Care Provider] - (See Dr. Nicole as needed) - Discharge Summary/Plan Comment DC Time >30 min.: No Discharge Summary/Plan Comment: Discharge home without current changes. Will proceed with oncology appointment today as scheduled for further plan for the port site, rash and further chemo. - General Info Date of Service: 12/24/17 Admission Dx/Problem (Free Text: Cellulitis of port site Functional Status: Reports: Pain Controlled, Tolerating Diet, Ambulating - Review of Systems General: Reports: Weakness, Fatigue. Denies: Fever HEENT: Reports: No Symptoms Pulmonary: Reports: Shortness of Breath, Cough Cardiovascular: Reports: Edema. Denies: Chest Pain, Lightheadedness Gastrointestinal: Denies: Abdominal Pain, Nausea, Vomiting Genitourinary: Reports: No Symptoms Musculoskeletal: Reports: No Symptoms Skin: Reports: Other (redness to port site) Neurological: Reports: No Symptoms - Patient Data Vitals - Most Recent: Last Vital Signs Temp 97.3 F 12/24/17 07:42 Pulse 89 12/24/17 07:42 Resp 20 12/24/17 07:42 BP 100/60 12/24/17 07:42 Pulse Ox 95 12/24/17 07:42 Weight - Most Recent: 156 lb RAHEL Results - Last 24 hrs: Microbiology 12/23/17 13:50 Wound Culture - Final Other - Port-A-Cath NO GROWTH AFTER 2 DAYS Med Orders - Current: Current Medications Discontinued Medications Albuterol (Ventolin Hfa) 0 gm INH Q4H PRN PRN Reason: Shortness of Breath Albuterol/Ipratropium (Duoneb 3.0-0.5 Mg/3 Ml) 3 ml NEB ONETIME ONE Stop: 10/01/18 15:27 Last Admin: 12/23/17 15:48 Dose: 3 ml Albuterol/Ipratropium (Duoneb 3.0-0.5 Mg/3 Ml) Confirm Administered Dose 3 ml .ROUTE .STK-MED ONE Stop: 12/23/17 15:51 Last Admin: 12/23/17 16:40 Dose: Not Given Albuterol/Ipratropium (Duoneb 3.0-0.5 Mg/3 Ml) 3 ml INH Q4H PRN PRN Reason: Shortness of Breath Alprazolam (Xanax) 0.25 mg PO ONETIME ONE Stop: 12/23/17 15:27 Last Admin: 12/23/17 15:45 Dose: 0.25 mg Alprazolam (Xanax) 0.25 mg PO QID PRN PRN Reason: Anxiety Last Admin: 12/24/17 07:33 Dose: 0.25 mg Budesonide (Pulmicort) 0.5 mg NEB 0700,1900 [facility] Last Admin: 12/24/17 06:59 Dose: 0.5 mg Enoxaparin Sodium (Lovenox) 40 mg SUBCUT Q24H [facility] Last Admin: 12/23/17 17:08 Dose: Not Given Enoxaparin Sodium (Lovenox) 40 mg SUBCUT DAILY@1600 [facility] Last Admin: 12/23/17 16:58 Dose: 40 mg Furosemide (Lasix) 20 mg PO DAILY [facility] Last Admin: 12/24/17 07:30 Dose: 20 mg Piperacillin Sod/Tazobactam (Sod 3.375 gm/ Sodium Chloride) 50 mls @ 100 mls/ hr IV Q6H [facility] Last Admin: 12/24/17 04:02 Dose: 100 mls/hr Ipratropium [place] (Atrovent) 0.5 mg NEB Q4H PRN PRN Reason: Dyspnea Last Admin: 12/24/17 07:33 Dose: 0.5 mg Nicotine (Habitrol) 21 mg TOP DAILY [facility] Last Admin: 12/23/17 17:07 Dose: 21 mg Nicotine (Habitrol) 21 mg TOP DAILY [facility] Last Admin: 12/24/17 07:30 Dose: Not Given Ptom Amlodipine ([Norvasc] 5 Mg) 5 mg PO DAILY [facility] Last Admin: 12/24/17 07:28 Dose: 5 mg Ptom Arformoterol [ Brovana] 1 Ampule 1 ampule INH BID [facility] Last Admin: 12/24/17 06:59 Dose: 1 ampule Ptom Guaifenesin ([Mucinex] 600 Mg) 600 mg PO BID [facility] Last Admin: 12/24/17 07:29 Dose: 600 mg Ptom Ranitidine Hcl [Zantac 75] 75 Mg 75 mg PO DAILY [facility] Last Admin: 12/24/17 07:30 Dose: 75 mg Ondansetron HCl (Zofran Odt) 4 mg PO Q6H PRN PRN Reason: Nausea/Vomiting Last Admin: 12/23/17 18:47 Dose: 4 mg Sodium Chloride (Saline Flush) 10 ml FLUSH ASDIRECTED PRN PRN Reason: Keep Vein Open Temazepam (Restoril) 15 mg PO BEDTIME PRN PRN Reason: Sleep - Exam General: Reports: Alert, Oriented HEENT: Reports: Mucous Membr. Moist/[place] Neck: Reports: Supple Lungs: Reports: Clear to Auscultation, Decreased Breath Sounds Cardiovascular: Reports: Regular Rate, Regular Rhythm GI/Abdominal Exam: Normal Bowel Sounds, Soft, Non-Tender Skin: Reports: Other (mild redness at port site, tender. No drainage today) Neurological: Reports: No New Focal Deficit
== END 2017-12-24 08:25 | disposition home or self-care (01) ==
LOC: CC.FCMC 14:16 → CC.MS 15:09
PROVIDERS: ADMIT Family Medicine; ATTEND Family Medicine
DX: T80.219A Unspecified infection due to central venous catheter, initial encounter (principal); R21 Rash and other nonspecific skin eruption; J44.9 Chronic obstructive pulmonary disease, unspecified; I10 Essential (primary) hypertension; F17.210 Nicotine dependence, cigarettes, uncomplicated; C57.00 Malignant neoplasm of unspecified fallopian tube; F41.9 Anxiety disorder, unspecified; Z79.899 Other long term (current) drug therapy; Z88.8 Allergy status to other drugs, medicaments and biological substances; Z88.1 Allergy status to other antibiotic agents; Z88.0 Allergy status to penicillin; Z91.030 Bee allergy status
CPT/HCPCS: 36415; 86140; 87070; 94640; 96365; 96366; 96372; 99217; 99219; A9270-GY; G0378; J1650; J2543; J7050; J7620-GY

== ENCOUNTER 2018-01-09 17:03 | Emergency (ER) | payer MEDICARE, OTHER ==
[2018-01-09 17:16] VITALS: BP 130/74
[2018-01-09] MEDS ORDERED: Lidocaine/Prilocaine 2.5-2.5% Crm 5 GM Tube ONE (17:20)
[2018-01-09 17:34] LABS: CHLORIDE,CL 97 mEq/L (98-106); SODIUM,NA 136 mEq/L (136-145)
[2018-01-09] MEDS ORDERED: Cefepime 2 GM in Sodium Chloride 0.9% 50 ML IV ONE (18:10)
--- NOTE | 2018-01-09 18:18 | EDM.PDOC ---
ED HPI GENERAL MEDICAL PROBLEM - General Chief Complaint: General Stated Complaint: short of breath Time Seen by Provider: 01/09/18 17:03 Source of Information: Reports: Patient History Limitations: Reports: No Limitations - History of Present Illness INITIAL COMMENTS - FREE TEXT/NARRATIVE: Patient presents to ER with complaints of increasing shortness of breath and weakness. Patient was recently discharged from [place] on Saturday after a 2 week stay for COPD Exacerbation, neutrophilic leukocytosis and fevers. She states she had multiple specialties evaluating her to find source of fever. Was given different antibiotics for pneumonia. Has history of erythema nodosum as well with concerns of a reaction to Neulasta versus antibiotics that were given in the past. She does use oxygen at home from a concentrator she purchased over the internet. She states with any activity she gets very weak and her sats do drop. She denies any fevers at home. Onset: Gradual Duration: Day(s):, Getting Worse Location: Reports: Chest Severity: Moderate Improves with: Reports: Rest Worsens with: Reports: Movement Associated Symptoms: Reports: Cough, Loss of Appetite, Nausea/Vomiting, Shortness of Breath, Weakness. Denies: Confusion, Chest Pain, Fever/Chills - Related Data Allergies Allergy/AdvReac Type Severity Reaction Status Date / Time cephalexin [Cephalexin] Allergy Vomiting Verified 01/09/18 17:17 chlorothiazide Allergy Vomiting Verified 01/09/18 17:17 [Chlorothiazide] chlorthalidone Allergy Vomiting Verified 01/09/18 17:17 clindamycin Allergy Vomiting Verified 01/09/18 17:17 heparin Allergy Vomiting Verified 01/09/18 17:17 levofloxacin [From Levaquin] Allergy Other Verified 01/09/18 17:17 Penicillins Allergy Vomiting Verified 01/09/18 17:17 prednisone Allergy Vomiting Verified 01/09/18 17:17 all narcotics Allergy Vomiting Uncoded 01/09/18 17:17 bee sting Allergy Cannot Uncoded 01/09/18 17:17 Remember magnesium Allergy Vomiting Uncoded 01/09/18 17:17 Home Meds: Home Meds Albuterol [Proair HFA] 2 puff IH Q4H PRN 03/05/13 [History] amLODIPine [Norvasc] 5 mg PO DAILY 07/05/16 [History] ALPRAZolam [Alprazolam] 0.25 mg PO QID PRN #120 tablet 09/11/16 [Rx] Budesonide [Pulmicort] 0.5 mg NEB 0700,1900 01/14/17 [History] Nicotine [Nicotine Patch] 21 mg TOP DAILY 01/14/17 [History] Arformoterol [Brovana] 1 ampule INH BID 09/24/17 [History] Ipratropium [Atrovent] 1 inh NEB Q4H PRN 11/10/17 [History] guaiFENesin [Mucinex] 600 mg PO BID 11/10/17 [History] Ranitidine HCl [Zantac 75] 75 mg PO DAILY 11/14/17 [History] Furosemide [Lasix] 20 mg PO DAILY 12/12/17 [History] Albuterol/Ipratropium [DuoNeb 3.0-0.5 MG/3 ML] 3 ml INH Q4HR PRN 12/23/17 [ History] Past Medical History HEENT History: Reports: Allergic Rhinitis, Cataract, Sinusitis Cardiovascular History: Reports: Hypertension Respiratory History: Reports: COPD, Pneumonia, Recurrent, SOB Genitourinary History: Reports: UTI, Recurrent 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 RESTAURANT SUPERVISOR History: fallopian tube cancer Psychiatric History: Reports: Anxiety Oncologic (Cancer) History: Reports: Breast, Other (See Below) Other Oncologic History: fallopian tube cancer - Past Surgical History HEENT Surgical History: Reports: Cataract Surgery Cardiovascular Surgical History: Reports: None Female Surgical History: Reports: Hysterectomy Social & Family History - Family History Family Medical History: Noncontributory - Tobacco Use Smoking Status *Q: Current Every Day Smoker Years of Tobacco use: 50 Packs/Tins Daily: 1 - Caffeine Use Caffeine Use: Reports: Coffee ED ROS GENERAL - Review of Systems Review Of Systems: See Below Constitutional: Reports: Malaise, Weakness, Fatigue, Decreased Appetite. Denies : Fever, Chills HEENT: Reports: Rhinitis Respiratory: Reports: Shortness of Breath, Wheezing, Cough Cardiovascular: Reports: Edema. Denies: Chest Pain, Lightheadedness Endocrine: Reports: Fatigue GI/Abdominal: Reports: Nausea. Denies: Abdominal Pain, Vomiting : Reports: No Symptoms Musculoskeletal: Reports: No Symptoms Skin: Reports: Pallor Neurological: Reports: Weakness ED EXAM, GENERAL - Physical Exam Exam: See Below Exam Limited By: No Limitations General Appearance: Alert, WD/WN, Moderate Distress Ears: Normal External Exam, Normal TMs Nose: Normal Inspection, Normal Mucosa, No Blood Throat/Mouth: Normal Inspection, Other (mucous membranes dry) Head: Normocephalic Neck: Normal Inspection, Supple, Non-Tender Respiratory/Chest: Decreased Breath Sounds Cardiovascular: Regular Rate, Rhythm GI/Abdominal: Normal Bowel Sounds, Soft Extremities: Other (patient has red nodules noted to her legs. Edema 1+) Neurological: Alert, Oriented Skin Exam: Warm, Dry, Pallor Course - Vital Signs Last Recorded V/S: Last Vital Signs Temp 96.7 F 01/09/18 17:05 Pulse 120 H 01/09/18 17:05 Resp 20 01/09/18 17:05 BP 130/74 01/09/18 17:05 Pulse Ox 95 01/09/18 17:15 - Orders/Labs/Meds Orders: Active Orders 24 hr Category Date Time Status Ang Chest [CT] Stat Exams 01/09/18 20:25 Ordered Chest 2V [CR] Stat Exams 01/09/18 17:35 Taken CULTURE BLOOD [BC] Stat Lab 01/09/18 18:10 Received CULTURE BLOOD [BC] Stat Lab 01/09/18 18:15 Received Blood Culture x2 Reflex Set [OM.PC] Stat Oth 01/09/18 18:02 Ordered Labs: Laboratory Tests 01/09/18 01/09/18 01/09/18 Range/Units 16:20 16:20 19:40 WBC 14.8 H (5.0-10.0) 10^3/uL RBC 4.24 (4.00-5.50) 10^6/uL Hgb 13.1 (12.0-16.0) g/dL Hct 40.6 (37.0-47.0) % MCV 95.8 H (82.0-94.0) fL MCH 30.9 (27.0-32.0) pg MCHC 32.3 L (33.0-38.0) g/dL RDW Coeff of Lucille 13.7 (11.0-15.0) % Plt Count 359 (150-400) 10^3/uL Neut % (Auto) 71.2 (35-85) % Lymph % (Auto) 13.4 (10-55) % Cobb % (Auto) 11.5 (0-16) % Eos % (Auto) 3.5 (0-5) % Baso % (Auto) 0.4 (0-3) % Neut # (Auto) 10.51 H (1.80-7.00) 10^3/uL Lymph # (Auto) 1.97 (1.00-4.80) 10^3/uL Cobb # (Auto) 1.69 H (0.00-0.80) 10^3/uL Eos # (Auto) 0.52 H (0.00-0.45) 10^3/uL Baso # (Auto) 0.06 10^3/uL APTT 28.2 (23.2-32.3) SEC D-Dimer, Quantitative 2.03 H (0.00-0.50) Sodium 136 (136-145) mEq/L Potassium 4.0 D (3.5-5.0) mEq/L Chloride 97 L (98-106) mEq/L Carbon Dioxide 27 (21-32) mmol/L BUN 14 (7-18) mg/dL Creatinine 0.8 (0.6-1.0) mg/dL Est Cr Clr Drug Dosing 54.90 mL/min Estimated GFR (MDRD) > 60 (>=60) mL/min Glucose 129 H (75-99) mg/dL Calcium 9.1 (8.4-10.1) mg/dL C-Reactive Protein 7.8 H (0.2-0.8) mg/dL Meds: Medications Discontinued Medications Generic Name Dose Route Start Last Admin Trade Name Belia PRN Reason Stop Dose Admin Alprazolam 0.25 mg 01/09/18 18:36 01/09/18 18:37 Xanax PO 01/09/18 18:37 0.25 mg NOW ONE Administration Alprazolam Confirm 01/09/18 18:26 01/09/18 18:48 Xanax Administered 01/09/18 18:27 Not Given Dose 0.25 mg .ROUTE .STK-MED ONE Vancomycin HCl 1 gm/ Sodium 250 mls @ 167 mls/hr 01/09/18 18:02 01/09/18 18: 25 Chloride IV 01/09/18 19:31 167 mls/hr ONETIME ONE Administration Cefepime HCl 2 gm/ Sodium 50 mls @ 100 mls/hr 01/09/18 18:10 01/09/18 18:47 Chloride IV 01/09/18 18:39 100 mls/hr ONETIME ONE Administration Sodium Chloride Confirm 01/09/18 18:26 01/09/18 18:47 Normal Saline Administered 01/09/18 18:27 Not Given Dose 100 mls @ as directed .ROUTE .STK-MED ONE Lidocaine/Prilocaine Confirm 01/09/18 17:20 01/09/18 18:30 Emla Crm Administered 01/09/18 17:21 1 applic Dose Administration 5 gm .ROUTE .STK-MED ONE Nicotine 14 mg 01/09/18 21:05 01/09/18 21:07 Habitrol TRDERM 01/09/18 21:06 14 mg ONETIME ONE Administration Nicotine Confirm 01/09/18 21:08 Habitrol Administered 01/09/18 21:09 Dose 14 mg .ROUTE .STK-MED ONE Ondansetron HCl 4 mg 01/09/18 19:44 01/09/18 19:42 Zofran Odt PO 01/09/18 19:45 4 mg ONETIME ONE Administration Ondansetron HCl Confirm 01/09/18 19:34 01/09/18 20:22 Zofran Odt Administered 01/09/18 19:35 Not Given Dose 4 mg .ROUTE .STK-MED ONE - Re-Assessments/Exams Free Text/Narrative Re-Assessment/Exam: 01/09/18 1800 Patient presented with increased shortness of breath. Oxygen sat 88-89% on room air, worsens with minimal activity. Labs and chest xray done. Does have notable pleural effusion to right base. Difficult to see underlying infiltrate or not. Contacted [facility] and spoke with Dr. Romero of status and results. He felt more of a medicine concern than oncologic so was referred to Dr. Son. Advised to draw blood cultures and start Cefepime and Vanco while enroute to [place]. Sats maintaining at 94% on 2 liters. patient and advised of risks and benefits of transfer. Riss of transfer include worsening condition, crash or . Benefits of transfer include higher level of care with critical care monitoring if needed due to code level 1 status and specialty intervention. risks of non transfer include lack of specialized care, worsening status while needing ventilation and possibly even . Benefits of non transfer include care close to home. patient and verbalize understanding and agree to transfer. 01/09/181919 Patient had left enroute to [place]. Received call from Dr. Son in regards to work up for PE. Would like d-dimer done and if elevated, CTA to rule out PE and treat rather than wait for her to get to [place]. Ambulance notified and returned as were only a few miles out. 1944 Patient d-dimer drawn. 1999 D-dimer elevated at 2.03. Contact[address] Son. Advised to do CTA here in [place] to rule out PE and treat with heparin if positive. Lab notified to run PTT. 01/09/18 21:40 CT scan report received. No PE. Increased pleural effusion. Consolidation noted in Right Lower Lobe. Contacted Dr. Son with report. Patient states is improved since arrival to ER. Color improved. Sats maintaining 95-96%. Departure - Departure Time of Disposition: 21:40 Disposition: DC/Tfer to Acute Hospital 02 Condition: Undetermined Clinical Impression: Neutrophilic leukocytosis, Pneumonia COPD (chronic obstructive pulmonary disease) Qualifiers: COPD type: unspecified COPD Qualified Code(s): J44.9 - Chronic obstructive pulmonary disease, unspecified - Discharge Information *PRESCRIPTION DRUG MONITORING PROGRAM REVIEWED*: No *COPY OF PRESCRIPTION DRUG MONITORING REPORT IN PATIENT GUERO: No Referrals: Gaston Nicole MD [Primary Care Provider] - Forms: ED Department Discharge Additional Instructions: Transfer to [facility] to Dr. Son per ALS service. - My Orders Last 24 Hours: My Active Orders 01/09/18 17:35 Chest 2V [CR] Stat 01/09/18 18:02 Blood Culture x2 Reflex Set [OM.PC] Stat 01/09/18 18:10 CULTURE BLOOD [BC] Stat 01/09/18 18:15 CULTURE BLOOD [BC] Stat 01/09/18 20:25 Ang Chest [CT] Stat - Assessment/Plan Last 24 Hours: My Active Orders 01/09/18 17:35 Chest 2V [CR] Stat 01/09/18 18:02 Blood Culture x2 Reflex Set [OM.PC] Stat 01/09/18 18:10 CULTURE BLOOD [BC] Stat 01/09/18 18:15 CULTURE BLOOD [BC] Stat 01/09/18 20:25 Ang Chest [CT] Stat
[2018-01-09] MEDS ORDERED: Sodium Chloride 0.9% 100 ML ONE (18:26)
[2018-01-09] MEDS ORDERED: ALPRAZolam 0.25 MG Tab ONE (18:26)
[2018-01-09] MEDS ORDERED: ALPRAZolam 0.25 MG Tab PO ONE (18:36)
[2018-01-09] MEDS ORDERED: Ondansetron 4 MG Tab.DIS ONE (19:34)
[2018-01-09] MEDS ORDERED: Ondansetron 4 MG Tab.DIS PO ONE (19:44)
[2018-01-09] MEDS ORDERED: Nicotine 14 MG/24 Hr Patch TRDERM ONE (21:05)
[2018-01-09] MEDS ORDERED: Nicotine 14 MG/24 Hr Patch ONE (21:08)
== END 2018-01-09 21:40 ==
LOC: CC.ED 17:03
DX: J18.9 Pneumonia, unspecified organism (principal); J44.9 Chronic obstructive pulmonary disease, unspecified; D72.828 Other elevated white blood cell count; F17.210 Nicotine dependence, cigarettes, uncomplicated; I10 Essential (primary) hypertension; Z88.0 Allergy status to penicillin; Z91.030 Bee allergy status; Z88.1 Allergy status to other antibiotic agents; Z79.899 Other long term (current) drug therapy
CPT/HCPCS: 36415; 71046; 71275; 80048; 85025; 85379; 85730; 86140; 87040; 96365; 96368; 99284; 99285; A9270; J0692; J3370; J7050; Q9967

== ENCOUNTER 2018-01-16 14:43 | Inpatient (IN) | payer MEDICARE, OTHER ==
[2018-01-16] MEDS ORDERED: Temazepam 15 MG Cap PO PRN (17:56)
[2018-01-16] MEDS ORDERED: Cefepime 2 GM in Sodium Chloride 0.9% 50 ML IV SCH (18:00)
[2018-01-16] MEDS ORDERED: MELATONIN 3 MG PO PRN (18:09)
[2018-01-16] MEDS ORDERED: Ibuprofen 200 MG Tab PO PRN (18:09)
[2018-01-16] MEDS ORDERED: Albuterol 8 GM Inhaler INH PRN (18:09)
[2018-01-16] MEDS ORDERED: Ondansetron 4 MG/2 ML SDV IVPUSH PRN (18:36)
[2018-01-16] MEDS: Budesonide 0.5 MG/2 ML Neb Susp NEB SCH (19:46)
[2018-01-16] MEDS: Cefepime 2 GM in Sodium Chloride 0.9% 50 ML IV SCH (20:01)
[2018-01-16] MEDS: guaiFENesin 200 MG Tab PO PRN (20:11)
[2018-01-16] MEDS: ALPRAZolam 0.25 MG Tab PO PRN (20:11)
[2018-01-16] MEDS: Albuterol/Ipratropium 3.0-0.5 MG/3 ML Neb Soln INH PRN (20:22)
[2018-01-16] MEDS: Famotidine 20 MG Tab PO SCH (20:22)
[2018-01-16] MEDS: ARFORMOTEROL INH SCH (20:57)
[2018-01-17] MEDS: ALPRAZolam 0.25 MG Tab PO PRN ×3 (01:32→20:01)
[2018-01-17] MEDS: Albuterol/Ipratropium 3.0-0.5 MG/3 ML Neb Soln INH PRN ×3 (01:32→14:12)
[2018-01-17] MEDS: Budesonide 0.5 MG/2 ML Neb Susp NEB SCH ×3 (06:41→19:55)
[2018-01-17] MEDS: ARFORMOTEROL INH SCH ×3 (06:41→19:56)
[2018-01-17] MEDS: Nicotine 14 MG/24 Hr Patch TOP SCH (07:46)
[2018-01-17] MEDS: Famotidine 20 MG Tab PO SCH ×3 (07:47→20:12)
[2018-01-17] MEDS: Cefepime 2 GM Vial IVPUSH SCH ×2 (09:08→20:01)
[2018-01-17 09:26] LABS: CHLORIDE,CL 93 mEq/L (98-106); SODIUM,NA 132 mEq/L (136-145)
[2018-01-17] MEDS: Cefepime 2 GM in Sodium Chloride 0.9% 50 ML IV SCH (10:05)
--- NOTE | 2018-01-17 10:05 | PCM.HP ---
H&P History of Present Illness - General Date of Service: 01/16/18 Admit Problem/Dx: Admission Diagnosis/Problem Admission Diagnosis/Problem Pleural effusion on right Source of Information: Patient, Old Records History Limitations: Reports: No Limitations - History of Present Illness Initial Comments - Free Text/Narative: Patient admitted swing bed from [facility] for ongoing IV antibiotics and physical therapy for strengthening. She has had a difficult course over the last month following a Taxol infusion for breast cancer. This was her second course of chemo. She developed fevers. Initially thought that it was from Neulasta as she had developed leukocytosis from that as well. Over the first few weeks, was hospitalized here and in [place] for this. Underwent 2 week course of Vancomycin and Cefepime and with this last stay there, also had Zithromax. Patient had developed a nodular rash there as well and felt it was erythema nodusum related to previous antibiotics. That has now improved. We did see patient in the ER here last week with hypoxia, weakness and worsening pleural effusion. She was sent back to [place] for further treatment. She had a thoracentesis yesterday with 1300 ml drained. She states she is feeling better now as a result, breathing is somewhat better. Is very weak, has pain in her legs. Is oxygen dependent at this time. Duration of Symptoms: Reports: Week(s):, Improving Location: Reports: Chest, Generalized Quality: Reports: Ache Severity: Mild Associated Symptoms: Reports: Cough, Loss of Appetite, Shortness of Breath, Weakness. Denies: Confusion, Chest Pain, Diaphoresis, Fever/Chills, Nausea/ Vomiting - Related Data Allergies/Adverse Reactions: Allergies Allergy/AdvReac Type Severity Reaction Status Date / Time cephalexin [Cephalexin] Allergy Vomiting Verified 01/09/18 17:17 chlorothiazide Allergy Vomiting Verified 01/09/18 17:17 [Chlorothiazide] chlorthalidone Allergy Vomiting Verified 01/09/18 17:17 clindamycin Allergy Vomiting Verified 01/09/18 17:17 heparin Allergy Vomiting Verified 01/09/18 17:17 levofloxacin [From Levaquin] Allergy Other Verified 01/09/18 17:17 Penicillins Allergy Vomiting Verified 01/09/18 17:17 prednisone Allergy Vomiting Verified 01/09/18 17:17 all narcotics Allergy Vomiting Uncoded 01/09/18 17:17 bee sting Allergy Cannot Uncoded 01/09/18 17:17 Remember magnesium Allergy Vomiting Uncoded 01/09/18 17:17 Home Medications: Home Meds Albuterol [Proair HFA] 2 puff IH Q4H PRN 03/05/13 [History] ALPRAZolam [Alprazolam] 0.25 mg PO QID PRN #120 tablet 09/11/16 [Rx] Budesonide [Pulmicort] 0.5 mg NEB 0700,1900 01/14/17 [History] Nicotine [Nicotine Patch] 14 mg TOP DAILY 01/14/17 [History] Arformoterol [Brovana] 1 ampule INH BID 09/24/17 [History] Ipratropium [Atrovent] 1 inh NEB Q4H PRN 11/10/17 [History] guaiFENesin [Mucinex] 600 mg PO BID 11/10/17 [History] Ranitidine HCl [Zantac 75] 75 mg PO DAILY 11/14/17 [History] Albuterol/Ipratropium [DuoNeb 3.0-0.5 MG/3 ML] 3 ml INH Q4HR PRN 12/23/17 [ History] Ibuprofen 400 mg PO TID PRN 01/16/18 [History] guaiFENesin [Mucinex] 600 mg PO BID PRN 01/16/18 [History] Past Medical History HEENT History: Reports: Allergic Rhinitis, Cataract, Sinusitis Cardiovascular History: Reports: Hypertension Respiratory History: Reports: COPD, Pneumonia, Recurrent, SOB Genitourinary History: Reports: UTI, Recurrent 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: fallopian tube cancer Psychiatric History: Reports: Anxiety Oncologic (Cancer) History: Reports: Breast, Other (See Below) Other Oncologic History: fallopian tube cancer - Past Surgical History HEENT Surgical History: Reports: Cataract Surgery Cardiovascular Surgical History: Reports: None Female Surgical History: Reports: Hysterectomy Social & Family History - Family History Family Medical History: Noncontributory - Tobacco Use Smoking Status *Q: Current Some Day Smoker Years of Tobacco use: 50 Packs/Tins Daily: 1 - Caffeine Use Caffeine Use: Reports: Coffee H&P Review of Systems - Review of Systems: Review Of Systems: See Below General: Reports: Malaise, Weakness, Decreased Appetite. Denies: Fever, Chills HEENT: Reports: Rhinitis. Denies: Ear Pain, Sore Throat Pulmonary: Reports: Shortness of Breath, Cough. Denies: Wheezing Cardiovascular: Reports: Edema. Denies: Chest Pain, Lightheadedness Gastrointestinal: Reports: Decreased Appetite. Denies: Abdominal Pain, Nausea, Vomiting Genitourinary: Reports: No Symptoms Musculoskeletal: Reports: No Symptoms Skin: Reports: Pallor Psychiatric: Reports: Anxiety Exam - Exam Exam: See Below - Vital Signs Vital Signs: Last Vital Signs Temp 97.0 F 01/17/18 07:33 Pulse 103 H 01/17/18 07:33 Resp 16 01/17/18 07:33 BP 111/63 01/17/18 07:33 Pulse Ox 97 01/17/18 07:33 Weight: 143 lb 12.8 oz - Exam Quality Assessment: Supplemental Oxygen General: Alert, Oriented HEENT: Conjunctiva Clear, Mucosa Moist & [place], Nares Patent Neck: Supple Lungs: Decreased Breath Sounds Cardiovascular: Regular Rate, Regular Rhythm GI/Abdominal Exam: Normal Bowel Sounds, Soft, Non-Tender Extremities: Normal Inspection, Pedal Edema (1+) Skin: Warm, Dry Neuro Extensive - Mental Status: Alert, Oriented x3 Psychiatric: Alert - Patient Data Lab Results Last 24 hrs: Laboratory Results - last 24 hr 01/17/18 01/17/18 Range/Units 05:11 05:11 WBC 12.0 H (5.0-10.0) 10^3/uL RBC 3.72 L (4.00-5.50) 10^6/uL Hgb 11.1 L (12.0-16.0) g/dL Hct 35.7 L (37.0-47.0) % MCV 96.0 H (82.0-94.0) fL MCH 29.8 (27.0-32.0) pg MCHC 31.1 L (33.0-38.0) g/dL RDW Coeff of Lucille 13.1 (11.0-15.0) % Plt Count 314 (150-400) 10^3/uL Neut % (Auto) 75.0 (35-85) % Lymph % (Auto) 9.5 L (10-55) % Wood % (Auto) 10.6 (0-16) % Eos % (Auto) 4.7 (0-5) % Baso % (Auto) 0.2 (0-3) % Neut # (Auto) 9.03 H (1.80-7.00) 10^3/uL Lymph # (Auto) 1.14 (1.00-4.80) 10^3/uL Wood # (Auto) 1.27 H (0.00-0.80) 10^3/uL Eos # (Auto) 0.56 H (0.00-0.45) 10^3/uL Baso # (Auto) 0.03 10^3/uL Sodium 132 L (136-145) mEq/L Potassium 3.5 (3.5-5.0) mEq/L Chloride 93 L (98-106) mEq/L Carbon Dioxide 32 (21-32) mmol/L BUN 11 (7-18) mg/dL Creatinine 0.8 (0.6-1.0) mg/dL Est Cr Clr Drug Dosing 54.90 mL/min Estimated GFR (MDRD) > 60 (>=60) mL/min Glucose 118 H (75-99) mg/dL Calcium 8.8 (8.4-10.1) mg/dL C-Reactive Protein 11.9 H (0.2-0.8) mg/dL Vancomycin Trough 10.5 (10-20) ug/mL Result Diagrams: 01/17/18 05:11 01/17/18 05:11 - Problem List (1) Breast cancer, right breast SNOMED Code(s): 869247659 ICD Code: C50.911 - MALIGNANT NEOPLASM OF UNSP SITE OF RIGHT FEMALE BREAST Status: Acute Priority: High Current Visit: Yes (2) Pneumonia SNOMED Code(s): 271960606 ICD Code: J18.9 - PNEUMONIA, UNSPECIFIED ORGANISM Status: Acute Priority : High Current Visit: Yes (3) COPD (chronic obstructive pulmonary disease) SNOMED Code(s): 82777538 ICD Code: J44.9 - CHRONIC OBSTRUCTIVE PULMONARY DISEASE, UNSPECIFIED Status : Chronic Priority: High Current Visit: Yes Qualifiers: COPD type: unspecified COPD Qualified Code(s): J44.9 - Chronic obstructive pulmonary disease, unspecified (4) Pleural effusion SNOMED Code(s): 70446254 ICD Code: J90 - PLEURAL EFFUSION, NOT ELSEWHERE CLASSIFIED Status: Acute Priority: High Current Visit: Yes Problem List Initiated/Reviewed/Updated: Yes Orders Last 24hrs: Active Orders 24 hr Category Date Time Status Patient Status [ADT] Routine ADT 01/16/18 17:56 Active Oxygen Therapy [RC] 2355 Care 01/16/18 17:56 Active Pulse Oximetry [RC] .PRN Care 01/16/18 18:04 Active Up ad Glory [RC] .PRN Care 01/16/18 17:56 Active Vital Signs [RC] 0800,2000 Care 01/16/18 17:56 Active PT Evaluation and Treatment [CONS] Routine Cons 01/16/18 17:56 Active Regular Diet [DIET] Diet 01/16/18 Dinner Active ALPRAZolam [Xanax] Med 01/16/18 18:09 Active 0.25 mg PO QID PRN Albuterol [Ventolin HFA] Med 01/16/18 18:09 Active 0 gm INH Q4H PRN Albuterol/Ipratropium [DuoNeb 3.0-0.5 MG/3 ML] Med 01/16/18 18:09 Active 3 ml INH Q4H PRN Arformoterol [Brovana] Med 01/16/18 20:00 Active 1 ampule INH BIDRT Budesonide [Pulmicort] Med 01/16/18 20:00 Active 0.5 mg NEB BIDRT Cefepime [Maxipime] Med 01/17/18 09:00 Active 2 gm IVPUSH BID Famotidine [Pepcid] Med 01/16/18 20:00 Active 10 mg PO BID Heparin Sodium [Heparin Lock Flush 100 Units/ML] Med 01/16/18 18:12 Active 500 units FLUSH ASDIRECTED PRN Ibuprofen [Motrin] Med 01/16/18 18:09 Active 400 mg PO TID PRN Ipratropium [Atrovent] Med 01/17/18 08:21 Active 0.5 mg NEB Q6H PRN Nicotine [Habitrol] Med 01/17/18 08:00 Active 14 mg TOP DAILY Ondansetron [Zofran] Med 01/16/18 18:36 Active 4 mg IVPUSH Q6H PRN Ranitidine 75 Mg Med 01/18/18 08:00 Active 75 mg PO DAILY Temazepam [Restoril] Med 01/16/18 17:56 Active 15 mg PO BEDTIME PRN Vancomycin Pharmacy to Dose [Pharmacy to Dose - Med 01/17/18 11:30 Pending Vancomycin] 1 dose .XX ASDIRECTED guaiFENesin [Organ-I NR] Med 01/16/18 18:09 Active 400 mg PO TID PRN Resuscitation Status Routine Resus Stat 01/16/18 17:56 Ordered Medication Orders Albuterol (Ventolin Hfa) 0 gm INH Q4H PRN PRN Reason: Shortness of Breath Albuterol/Ipratropium (Duoneb 3.0-0.5 Mg/3 Ml) 3 ml INH Q4H PRN PRN Reason: Shortness of Breath Last Admin: 01/17/18 07:55 Dose: 3 ml Admin: 01/17/18 01:32 Dose: 3 ml Admin: 01/16/18 20:22 Dose: 3 ml Alprazolam (Xanax) 0.25 mg PO QID PRN PRN Reason: Anxiety Last Admin: 01/17/18 01:32 Dose: 0.25 mg Admin: 01/16/18 20:11 Dose: 0.25 mg Budesonide (Pulmicort) 0.5 mg NEB BIDRT [facility] Last Admin: 01/17/18 07:26 Dose: Admin: 01/17/18 06:41 Dose: 0.5 mg Admin: 01/16/18 19:46 Dose: 0.5 mg Cefepime HCl (Maxipime) 2 gm IVPUSH BID [facility] Last Admin: 01/17/18 09:08 Dose: 2 gm Famotidine (Pepcid) 10 mg PO BID [facility] Last Admin: 01/17/18 07:47 Dose: Admin: 01/16/18 20:22 Dose: Not Given Guaifenesin (Organ-I Nr) 400 mg PO TID PRN PRN Reason: Cough Last Admin: 01/16/18 20:11 Dose: 400 mg Heparin Sodium (Porcine) (Heparin Lock Flush 100 Units/Ml) 500 units FLUSH ASDIRECTED PRN PRN Reason: Other Ibuprofen (Motrin) 400 mg PO TID PRN PRN Reason: Pain Ipratropium Dawson (Atrovent) 0.5 mg NEB Q6H PRN PRN Reason: Wheezing Nicotine (Habitrol) 14 mg TOP DAILY [facility] Last Admin: 01/17/18 07:46 Dose: 14 mg Brovana 1 Ampule * (Own Med*) 1 ampule INH BIDRT [facility] Last Admin: 01/17/18 07:25 Dose: Admin: 01/17/18 06:41 Dose: 1 ampule Admin: 01/16/18 20:57 Dose: 1 ampule Ptom Ranitidine (75 Mg) 75 mg PO DAILY [facility] Ondansetron HCl (Zofran) 4 mg IVPUSH Q6H PRN PRN Reason: Nausea Temazepam (Restoril) 15 mg PO BEDTIME PRN PRN Reason: Sleep Vancomycin HCl (Pharmacy To Dose - Vancomycin) 1 dose .XX ASDIRECTED [facility] Stop: 01/24/18 11:35 Assessment/Plan Comment:: Admit to swing bed. Continue IV Vancomycin and Cefepine. Physical therapy for strengthening. Oxygen and nebs. Dr. Nicole aware of admission and agrees with plan.
[2018-01-17] MEDS: Ipratropium 0.02% 0.5 MG/2.5 ML Neb Soln NEB PRN (20:28)
[2018-01-17] MEDS: Hydrocortisone 2.5% Crm 30 GM Tube TOP PRN (20:35)
[2018-01-18] MEDS: Albuterol/Ipratropium 3.0-0.5 MG/3 ML Neb Soln INH PRN ×4 (01:50→18:52)
[2018-01-18] MEDS: Hydrocortisone 2.5% Crm 30 GM Tube TOP PRN ×4 (01:55→19:28)
[2018-01-18] MEDS: ALPRAZolam 0.25 MG Tab PO PRN ×4 (01:56→19:29)
[2018-01-18] MEDS: guaiFENesin 200 MG Tab PO PRN ×2 (06:34→18:37)
[2018-01-18] MEDS: RANITIDINE 75 MG PO SCH ×2 (06:35→07:09)
[2018-01-18] MEDS: Budesonide 0.5 MG/2 ML Neb Susp NEB SCH ×3 (06:35→18:33)
[2018-01-18] MEDS: ARFORMOTEROL INH SCH ×3 (06:35→18:32)
[2018-01-18] MEDS: Ipratropium 0.02% 0.5 MG/2.5 ML Neb Soln NEB PRN (06:49)
[2018-01-18] MEDS: Famotidine 20 MG Tab PO SCH (07:09)
[2018-01-18] MEDS: Nicotine 14 MG/24 Hr Patch TOP SCH (07:21)
[2018-01-18] MEDS: Cefepime 2 GM Vial IVPUSH SCH ×2 (07:21→19:20)
[2018-01-19] MEDS: ALPRAZolam 0.25 MG Tab PO PRN ×4 (01:49→19:32)
[2018-01-19] MEDS: Albuterol/Ipratropium 3.0-0.5 MG/3 ML Neb Soln INH PRN ×3 (01:49→18:59)
[2018-01-19] MEDS: Budesonide 0.5 MG/2 ML Neb Susp NEB SCH ×2 (07:18→18:28)
[2018-01-19] MEDS: RANITIDINE 75 MG PO SCH (07:20)
[2018-01-19] MEDS: ARFORMOTEROL INH SCH ×2 (07:20→18:28)
[2018-01-19] MEDS: Nicotine 14 MG/24 Hr Patch TOP SCH (07:20)
[2018-01-19] MEDS: guaiFENesin 200 MG Tab PO PRN ×2 (07:25→18:28)
[2018-01-19] MEDS: Cefepime 2 GM Vial IVPUSH SCH ×2 (08:21→19:32)
[2018-01-19] MEDS ORDERED: Lidocaine/Prilocaine 2.5-2.5% Crm 5 GM Tube TOP ONE (13:41)
[2018-01-19] MEDS: Hydrocortisone 2.5% Crm 30 GM Tube TOP PRN (19:33)
[2018-01-20] MEDS: ALPRAZolam 0.25 MG Tab PO PRN ×4 (02:07→19:57)
[2018-01-20] MEDS: Albuterol/Ipratropium 3.0-0.5 MG/3 ML Neb Soln INH PRN ×4 (02:07→16:10)
[2018-01-20] MEDS: ARFORMOTEROL INH SCH ×2 (06:27→18:18)
[2018-01-20] MEDS: RANITIDINE 75 MG PO SCH (06:27)
[2018-01-20] MEDS: Budesonide 0.5 MG/2 ML Neb Susp NEB SCH ×2 (06:27→18:10)
[2018-01-20] MEDS: Hydrocortisone 2.5% Crm 30 GM Tube TOP PRN ×2 (06:27→19:50)
[2018-01-20] MEDS: guaiFENesin 200 MG Tab PO PRN ×2 (06:31→18:09)
[2018-01-20] MEDS: Nicotine 14 MG/24 Hr Patch TOP SCH (07:54)
[2018-01-20] MEDS: Cefepime 2 GM Vial IVPUSH SCH ×2 (08:11→19:50)
[2018-01-20 10:49] LABS: CHLORIDE,CL 100 mEq/L (98-106); SODIUM,NA 138 mEq/L (136-145)
[2018-01-20] MEDS: Loratadine 10 MG Tab PO SCH (12:53)
[2018-01-21] MEDS: ALPRAZolam 0.25 MG Tab PO PRN ×4 (02:26→19:47)
[2018-01-21] MEDS: Albuterol/Ipratropium 3.0-0.5 MG/3 ML Neb Soln INH PRN ×4 (02:26→18:39)
[2018-01-21] MEDS: Loratadine 10 MG Tab PO SCH (06:17)
[2018-01-21] MEDS: RANITIDINE 75 MG PO SCH (06:17)
[2018-01-21] MEDS: ARFORMOTEROL INH SCH ×2 (06:18→18:37)
[2018-01-21] MEDS: Budesonide 0.5 MG/2 ML Neb Susp NEB SCH ×2 (06:18→18:37)
[2018-01-21] MEDS: Hydrocortisone 2.5% Crm 30 GM Tube TOP PRN (06:25)
[2018-01-21] MEDS: Nicotine 14 MG/24 Hr Patch TOP SCH (07:57)
[2018-01-21] MEDS: Cefepime 2 GM Vial IVPUSH SCH ×2 (09:34→19:47)
[2018-01-22] MEDS: Albuterol/Ipratropium 3.0-0.5 MG/3 ML Neb Soln INH PRN ×5 (01:52→18:37)
[2018-01-22] MEDS: ALPRAZolam 0.25 MG Tab PO PRN ×4 (01:52→19:53)
[2018-01-22] MEDS: ARFORMOTEROL INH SCH ×2 (06:05→18:24)
[2018-01-22] MEDS: Budesonide 0.5 MG/2 ML Neb Susp NEB SCH ×2 (06:05→18:23)
[2018-01-22] MEDS: RANITIDINE 75 MG PO SCH (06:06)
[2018-01-22] MEDS: Loratadine 10 MG Tab PO SCH (06:51)
[2018-01-22] MEDS: Nicotine 14 MG/24 Hr Patch TOP SCH (07:54)
[2018-01-22] MEDS: Cefepime 2 GM Vial IVPUSH SCH ×2 (07:54→19:51)
[2018-01-23] MEDS: ALPRAZolam 0.25 MG Tab PO PRN ×4 (01:45→19:42)
[2018-01-23] MEDS: Albuterol/Ipratropium 3.0-0.5 MG/3 ML Neb Soln INH PRN ×4 (01:49→19:42)
[2018-01-23] MEDS: Budesonide 0.5 MG/2 ML Neb Susp NEB SCH ×2 (06:06→18:11)
[2018-01-23] MEDS: ARFORMOTEROL INH SCH ×2 (06:06→18:11)
[2018-01-23] MEDS: RANITIDINE 75 MG PO SCH (06:08)
[2018-01-23] MEDS: Loratadine 10 MG Tab PO SCH (06:12)
[2018-01-23] MEDS: Cefepime 2 GM Vial IVPUSH SCH ×2 (07:44→19:40)
[2018-01-23] MEDS: Nicotine 14 MG/24 Hr Patch TOP SCH (07:45)
[2018-01-23] MEDS: Enoxaparin 40 MG/0.4 ML Syringe SUBCUT SCH (09:06)
[2018-01-24] MEDS: ALPRAZolam 0.25 MG Tab PO PRN ×4 (02:01→19:56)
[2018-01-24] MEDS: Albuterol/Ipratropium 3.0-0.5 MG/3 ML Neb Soln INH PRN ×4 (02:01→19:34)
[2018-01-24] MEDS: Budesonide 0.5 MG/2 ML Neb Susp NEB SCH ×2 (06:37→18:23)
[2018-01-24] MEDS: ARFORMOTEROL INH SCH ×2 (06:37→18:23)
[2018-01-24] MEDS: Loratadine 10 MG Tab PO SCH (06:37)
[2018-01-24] MEDS: RANITIDINE 75 MG PO SCH (06:37)
[2018-01-24] MEDS: Nicotine 14 MG/24 Hr Patch TOP SCH (07:47)
[2018-01-24] MEDS: Enoxaparin 40 MG/0.4 ML Syringe SUBCUT SCH (08:58)
[2018-01-25] MEDS: ALPRAZolam 0.25 MG Tab PO PRN ×4 (01:44→20:11)
[2018-01-25] MEDS: Albuterol/Ipratropium 3.0-0.5 MG/3 ML Neb Soln INH PRN ×4 (01:44→17:36)
[2018-01-25] MEDS: Budesonide 0.5 MG/2 ML Neb Susp NEB SCH ×2 (06:32→20:00)
[2018-01-25] MEDS: Loratadine 10 MG Tab PO SCH (06:32)
[2018-01-25] MEDS: RANITIDINE 75 MG PO SCH (06:33)
[2018-01-25] MEDS: ARFORMOTEROL INH SCH ×2 (06:35→20:00)
[2018-01-25] MEDS: guaiFENesin 200 MG Tab PO PRN ×2 (06:37→20:11)
[2018-01-25] MEDS: Nicotine 14 MG/24 Hr Patch TOP SCH (07:45)
[2018-01-25] MEDS: Enoxaparin 40 MG/0.4 ML Syringe SUBCUT SCH ×2 (07:49→09:04)
[2018-01-25] MEDS ORDERED: ALPRAZolam 0.25 MG Tab PO ONE (17:49)
[2018-01-26] MEDS: Albuterol/Ipratropium 3.0-0.5 MG/3 ML Neb Soln INH PRN ×4 (01:30→20:01)
[2018-01-26] MEDS: ALPRAZolam 0.25 MG Tab PO PRN ×4 (01:30→20:01)
[2018-01-26] MEDS: Loratadine 10 MG Tab PO SCH (06:41)
[2018-01-26] MEDS: ARFORMOTEROL INH SCH ×2 (06:41→18:39)
[2018-01-26] MEDS: Budesonide 0.5 MG/2 ML Neb Susp NEB SCH ×2 (06:41→18:39)
[2018-01-26] MEDS: RANITIDINE 75 MG PO SCH (06:41)
[2018-01-26] MEDS: guaiFENesin 200 MG Tab PO PRN ×2 (06:44→18:39)
[2018-01-26] MEDS: Enoxaparin 40 MG/0.4 ML Syringe SUBCUT SCH (08:21)
[2018-01-27] MEDS: ALPRAZolam 0.25 MG Tab PO PRN ×4 (01:54→20:17)
[2018-01-27] MEDS: Albuterol/Ipratropium 3.0-0.5 MG/3 ML Neb Soln INH PRN ×5 (01:54→21:48)
[2018-01-27] MEDS: Budesonide 0.5 MG/2 ML Neb Susp NEB SCH ×2 (06:50→18:30)
[2018-01-27] MEDS: Loratadine 10 MG Tab PO SCH (06:50)
[2018-01-27] MEDS: guaiFENesin 200 MG Tab PO PRN ×2 (06:50→19:35)
[2018-01-27] MEDS: RANITIDINE 75 MG PO SCH (06:50)
[2018-01-27] MEDS: ARFORMOTEROL INH SCH ×2 (06:52→18:30)
[2018-01-27] MEDS: Enoxaparin 40 MG/0.4 ML Syringe SUBCUT SCH (09:34)
[2018-01-27] MEDS ORDERED: ALPRAZolam 0.25 MG Tab PO ONE (17:23)
[2018-01-28] MEDS: Albuterol/Ipratropium 3.0-0.5 MG/3 ML Neb Soln INH PRN ×2 (02:39→07:49)
[2018-01-28] MEDS: ALPRAZolam 0.25 MG Tab PO PRN ×2 (02:39→08:06)
[2018-01-28] MEDS: RANITIDINE 75 MG PO SCH (06:38)
[2018-01-28] MEDS: ARFORMOTEROL INH SCH (06:38)
[2018-01-28] MEDS: Budesonide 0.5 MG/2 ML Neb Susp NEB SCH (06:39)
[2018-01-28] MEDS: guaiFENesin 200 MG Tab PO PRN (06:46)
[2018-01-28 07:50] VITALS: BP 109/55
[2018-01-28] MEDS: Enoxaparin 40 MG/0.4 ML Syringe SUBCUT SCH (08:00)
--- NOTE | 2018-01-28 13:31 | PCM.DCSUM1 ---
Discharge Summary - Hospital Course Free Text/Narrative:: Patient was admitted swing bed from [facility] for ongoing IV antibiotics and physical therapy. She had been an [place] due to increased shortness of breath and pneumonia. Pleural effusion had increased. Was on 3 different antibiotics while in [place]. Had thoracentesis and removed 1300 ml. Patient did have intermittent fevers but not as consistently as prior hospitalization per patient. Oxygen dependent. Diagnosis: Stroke: No Modified [place] Scale: No Symptoms at All Modified [place] Scale Score: 0 - Discharge Data Discharge Date: 01/28/18 Discharge Disposition: Home, W Home Health Agency 06 Condition: Fair - Discharge Diagnosis/Problem(s) (1) Breast cancer, right breast SNOMED Code(s): 491496377 ICD Code: C50.911 - MALIGNANT NEOPLASM OF UNSP SITE OF RIGHT FEMALE BREAST Status: Acute Priority: High (2) Pneumonia SNOMED Code(s): 719469683 ICD Code: J18.9 - PNEUMONIA, UNSPECIFIED ORGANISM Status: Acute Priority : High (3) COPD (chronic obstructive pulmonary disease) SNOMED Code(s): 30052075 ICD Code: J44.9 - CHRONIC OBSTRUCTIVE PULMONARY DISEASE, UNSPECIFIED Status : Chronic Priority: High Qualifiers: COPD type: unspecified COPD Qualified Code(s): J44.9 - Chronic obstructive pulmonary disease, unspecified (4) Pleural effusion SNOMED Code(s): 15392593 ICD Code: J90 - PLEURAL EFFUSION, NOT ELSEWHERE CLASSIFIED Status: Acute Priority: High - Patient Summary/Data Complications: none Consults: Consultations 01/16/18 17:56 PT Evaluation and Treatment [CONS] Routine Hospital Course: Patient has had slow, mild improvement from admit. Continues to be short of breath with activity. Has ongoing cough. Did develop a rash, papular throughout. Refused to be on prednisone. Took Claritin but did not feel it helped. Very pruritic but it has improved now that the antibiotics have been stopped. She has had multiple reactions to antibiotics in the past. Still healing nodules on leg, erythema nodusum, that was felt to either be related to IV antibiotic or from the Neul[place]. She is ambulating short distances with PT and staff. Oxygen sats do drop below 90% with minimal activity. Discharge home with Home Health. Nursing will continue to monitor lung sounds, oxygen levels, provide assistance with cares/meds as needed. Physical therapy to continue with exercises to increase strength. Is homebound as unable to drive due to weakness and shortness of breath. Dr. Nicole will oversee home health care. - Patient Instructions Diet: Usual Diet as Tolerated Activity: As Tolerated - Discharge Plan *PRESCRIPTION DRUG MONITORING PROGRAM REVIEWED*: No *COPY OF PRESCRIPTION DRUG MONITORING REPORT IN PATIENT GUERO: No Home Medications: Home Meds Albuterol [Proair HFA] 2 puff IH Q4H PRN 03/05/13 [History] ALPRAZolam [Alprazolam] 0.25 mg PO QID PRN #120 tablet 09/11/16 [Rx] Budesonide [Pulmicort] 0.5 mg NEB 0700,1900 01/14/17 [History] Nicotine [Nicotine Patch] 14 mg TOP DAILY 01/14/17 [History] Arformoterol [Brovana] 1 ampule INH BID 09/24/17 [History] Ipratropium [Atrovent] 1 inh NEB Q4H PRN 11/10/17 [History] guaiFENesin [Mucinex] 600 mg PO BID 11/10/17 [History] Ranitidine HCl [Zantac 75] 75 mg PO DAILY 11/14/17 [History] Albuterol/Ipratropium [DuoNeb 3.0-0.5 MG/3 ML] 3 ml INH Q4HR PRN 12/23/17 [ History] Ibuprofen 400 mg PO TID PRN 01/16/18 [History] guaiFENesin [Mucinex] 600 mg PO BID PRN 01/16/18 [History] Referrals: Gaston Nicole MD [Primary Care Provider] - (Follow up with Dr. Nicole in 1 week ) - Discharge Summary/Plan Comment DC Time >30 min.: No Discharge Summary/Plan Comment: Discharge home Continue usual meds Follow up with Dr. Nicole in one week - General Info Date of Service: 01/28/18 Admission Dx/Problem (Free Text: Admission Diagnosis/Problem Admission Diagnosis/Problem Pleural effusion on right Functional Status: Reports: Pain Controlled, Tolerating Diet, Ambulating ( ambulates short distances ) - Review of Systems General: Reports: Weakness, Fatigue HEENT: Reports: Rhinitis. Denies: Ear Pain, Sinus Congestion Pulmonary: Reports: Shortness of Breath, Cough Cardiovascular: Reports: Edema. Denies: Chest Pain, Lightheadedness Gastrointestinal: Denies: Abdominal Pain, Nausea, Vomiting Genitourinary: Reports: No Symptoms Musculoskeletal: Reports: Leg Pain Skin: Reports: Rash Neurological: Reports: No Symptoms Psychiatric: Reports: Anxiety - Patient Data Vitals - Most Recent: Last Vital Signs Temp 96.5 F 01/28/18 07:49 Pulse 90 01/28/18 07:49 Resp 20 01/28/18 07:49 BP 109/55 L 01/28/18 07:49 Pulse Ox 98 01/28/18 07:49 Weight - Most Recent: 150 lb 4.8 oz Med Orders - Current: Current Medications Discontinued Medications Albuterol (Ventolin Hfa) 0 gm INH Q4H PRN PRN Reason: Shortness of Breath Albuterol/Ipratropium (Duoneb 3.0-0.5 Mg/3 Ml) 3 ml INH Q4H PRN PRN Reason: Shortness of Breath Last Admin: 01/28/18 07:49 Dose: 3 ml Alprazolam (Xanax) 0.25 mg PO QID PRN PRN Reason: Anxiety Last Admin: 01/28/18 08:06 Dose: 0.25 mg Alprazolam (Xanax) 0.25 mg PO ONETIME ONE Stop: 01/25/18 17:50 Last Admin: 01/25/18 17:52 Dose: 0.25 mg Alprazolam (Xanax) 0.25 mg PO ONETIME ONE Stop: 01/27/18 17:24 Last Admin: 01/27/18 17:30 Dose: 0.25 mg Budesonide (Pulmicort) 0.5 mg NEB BIDRT [facility] Last Admin: 01/18/18 07:09 Dose: Not Given Budesonide (Pulmicort) 0.5 mg NEB BID@0630,1830 [facility] Last Admin: 01/28/18 06:39 Dose: 0.5 mg Cefepime HCl (Maxipime) 2 gm IVPUSH BID [facility] Last Admin: 01/23/18 19:40 Dose: 2 gm Enoxaparin Sodium (Lovenox) 40 mg SUBCUT Q24H [facility] Last Admin: 01/28/18 08:00 Dose: 40 mg Famotidine (Pepcid) 10 mg PO BID [facility] Last Admin: 01/18/18 07:09 Dose: Not Given Guaifenesin (Organ-I Nr) 400 mg PO TID PRN PRN Reason: Cough Last Admin: 01/28/18 06:46 Dose: 400 mg Heparin Sodium (Porcine) (Heparin Lock Flush 100 Units/Ml) 500 units FLUSH ASDIRECTED PRN PRN Reason: Other Last Admin: 01/25/18 20:12 Dose: 500 units Hydrocortisone (Hydrocortisone 2.5% Crm) 0 gm TOP TID PRN PRN Reason: Rash Last Admin: 01/21/18 06:25 Dose: 1 applic Cefepime HCl 2 gm/ Sodium (Chloride) 50 mls @ 100 mls/hr IV Q12H [facility] Last Admin: 01/16/18 19:12 Dose: Not Given Cefepime HCl 2 gm/ Sodium (Chloride) 50 mls @ 100 mls/hr IV Q12H [facility] Last Admin: 01/17/18 10:05 Dose: Not Given Vancomycin HCl 1.25 gm/ Sodium (Chloride) 250 mls @ 166.667 mls/hr IV BID [facility] Last Admin: 01/17/18 11:15 Dose: 166.667 mls/hr Vancomycin HCl 1.25 gm/ Sodium (Chloride) 250 mls @ 166.667 mls/hr IV DAILY@ 1100 [facility] Last Admin: 01/20/18 11:09 Dose: 166.667 mls/hr Vancomycin HCl 1.25 gm/ Sodium (Chloride) 250 mls @ 166.667 mls/hr IV 0600, 1800 [facility] Stop: 01/23/18 23:59 Last Admin: 01/23/18 18:01 Dose: 166.667 mls/hr Ibuprofen (Motrin) 400 mg PO TID PRN PRN Reason: Pain Ipratropium [place] (Atrovent) 0.5 mg NEB Q6H PRN PRN Reason: Wheezing Last Admin: 01/18/18 06:49 Dose: 0.5 mg Lidocaine/Prilocaine (Emla Crm) 0 gm TOP ONETIME ONE Stop: 01/19/18 13:42 Last Admin: 01/19/18 14:18 Dose: 1 applic Loratadine (Claritin) 10 mg PO DAILY@0700 [facility] Last Admin: 01/27/18 06:50 Dose: 10 mg Nicotine (Habitrol) 14 mg TOP DAILY [facility] Last Admin: 01/25/18 07:45 Dose: Not Given Brovana 1 Ampule * (Own Med*) 1 ampule INH BIDRT [facility] Last Admin: 01/18/18 07:09 Dose: Not Given Melatonin 3 Mg Own (Med) 0 mg PO BEDTIME PRN PRN Reason: Insomnia Ptom Ranitidine (75 Mg) 75 mg PO DAILY [facility] Last Admin: 01/18/18 07:09 Dose: Not Given Brovana 1 Ampule * (Own Med*) 1 ampule INH BID@0630,1830 [facility] Last Admin: 01/28/18 06:38 Dose: 1 ampule Ptom Ranitidine (75 Mg) 75 mg PO DAILY@0630 [facility] Last Admin: 01/28/18 06:38 Dose: 75 mg Ondansetron HCl (Zofran) 4 mg IVPUSH Q6H PRN PRN Reason: Nausea Temazepam (Restoril) 15 mg PO BEDTIME PRN PRN Reason: Sleep Vancomycin HCl (Pharmacy To Dose - Vancomycin) 1 dose .XX ASDIRECTED [facility] Stop: 01/24/18 11:35 - Exam Quality Assessment: Reports: Supplemental Oxygen General: Reports: Alert, Oriented HEENT: Reports: Mucous Membr. Moist/[place] Neck: Reports: Supple Lungs: Reports: Decreased Breath Sounds Cardiovascular: Reports: Regular Rate, Regular Rhythm GI/Abdominal Exam: Normal Bowel Sounds, Soft, Non-Tender Extremities: Pedal Edema (1+ edema in legs/feet) Skin: Reports: Warm, Dry, Rash (rash is improving. Does have larger red nodules to lower legs but improving from erythema nodusum)
== END 2018-01-28 12:30 | disposition home health service (06) | DRG 186 ==
LOC: CC.MS 16:15
PROVIDERS: ADMIT Family Medicine; ATTEND Family Medicine
DX: J90 Pleural effusion, not elsewhere classified (principal); J18.9 Pneumonia, unspecified organism; C50.911 Malignant neoplasm of unspecified site of right female breast; J44.9 Chronic obstructive pulmonary disease, unspecified; R06.02 Shortness of breath; R21 Rash and other nonspecific skin eruption; I10 Essential (primary) hypertension; F41.9 Anxiety disorder, unspecified; F17.210 Nicotine dependence, cigarettes, uncomplicated; L52 Erythema nodosum; Z79.899 Other long term (current) drug therapy; Z99.81 Dependence on supplemental oxygen; Z88.8 Allergy status to other drugs, medicaments and biological substances; Z88.0 Allergy status to penicillin; Z85.89 Personal history of malignant neoplasm of other organs and systems
CPT/HCPCS: 36415; 80048; 80202; 85025; 86140; 94640; 97110-GP; 97161-GP; A9270-GY; J0692; J1642; J1650; J3370; J7050; J7620-GY

== ENCOUNTER 2018-02-08 22:19 | Inpatient (IN) | payer MEDICARE, OTHER ==
--- NOTE | 2018-02-08 22:53 | EDM.PDOC ---
ED HPI GENERAL MEDICAL PROBLEM - General Chief Complaint: Respiratory Problem Stated Complaint: SOB, FEVER Time Seen by Provider: 02/08/18 22:53 Source of Information: Reports: Patient, EMS Notes Reviewed History Limitations: Reports: No Limitations - History of Present Illness INITIAL COMMENTS - FREE TEXT/NARRATIVE: Lani is a 67 year old female who presents to the ED via EMS with c/o worsening shortness of breath and fever. She has an extensive health history significant for COPD and breast cancer. She has recently stopped all chemotherapy and radiation. She had been recently hospitalized for pneumonia, infected port, and right pleural effusion. She did have a thoracentesis while hospitalized in [place] recently as well, which was negative for any malignant cells per patient report. She reports "it is impossible to describe her symptoms." She reports she "has bronchitis." She reports she did have a fever today, "but she thinks its from being bundled up with blankets." Fever enroute with EMS was 103.6 deg. Denies any chest pain, dizziness, abdominal pain, nausea, vomiting, diarrhea, urinary symptoms. She reports she is struggling to breathe because we are making her talk. - Related Data Allergies Allergy/AdvReac Type Severity Reaction Status Date / Time cephalexin [Cephalexin] Allergy Vomiting Verified 02/08/18 22:39 chlorothiazide Allergy Vomiting Verified 02/08/18 22:39 [Chlorothiazide] chlorthalidone Allergy Vomiting Verified 02/08/18 22:39 clindamycin Allergy Vomiting Verified 02/08/18 22:39 heparin Allergy Vomiting Verified 02/08/18 22:39 levofloxacin [From Levaquin] Allergy Other Verified 02/08/18 22:39 Penicillins Allergy Vomiting Verified 02/08/18 22:39 prednisone Allergy Vomiting Verified 02/08/18 22:39 all narcotics Allergy Vomiting Uncoded 02/08/18 22:39 bee sting Allergy Cannot Uncoded 02/08/18 22:39 Remember magnesium Allergy Vomiting Uncoded 02/08/18 22:39 Home Meds: Home Meds ALPRAZolam [Alprazolam] 0.25 mg PO QID PRN #120 tablet 09/11/16 [Rx] Budesonide [Pulmicort] 0.5 mg NEB 0700,1900 01/14/17 [History] Arformoterol [Brovana] 1 ampule INH BID 09/24/17 [History] Ipratropium [Atrovent] 1 inh NEB Q4H PRN 11/10/17 [History] guaiFENesin [Mucinex] 600 mg PO BID 11/10/17 [History] Ranitidine HCl [Zantac 75] 75 mg PO DAILY 11/14/17 [History] Ibuprofen 400 mg PO TID PRN 01/16/18 [History] Albuterol [Ventolin HFA] 2 puff INH BID PRN 02/08/18 [History] Past Medical History HEENT History: Reports: Allergic Rhinitis, Cataract, Sinusitis Cardiovascular History: Reports: Hypertension Respiratory History: Reports: COPD, Pneumonia, Recurrent, SOB Genitourinary History: Reports: UTI, Recurrent PHARMACEUTICAL ANALYST History: Reports: Other (See Below) Other PHARMACEUTICAL ANALYST History: fallopian tube cancer Psychiatric History: Reports: Anxiety Oncologic (Cancer) History: Reports: Breast, Other (See Below) Other Oncologic History: fallopian tube cancer - Past Surgical History HEENT Surgical History: Reports: Cataract Surgery Cardiovascular Surgical History: Reports: None Female Surgical History: Reports: Hysterectomy Social & Family History - Family History Family Medical History: Noncontributory - Caffeine Use Caffeine Use: Reports: Coffee ED ROS GENERAL - Review of Systems Review Of Systems: ROS reveals no pertinent complaints other than HPI. Constitutional: Reports: Fever, Chills, Weakness, Fatigue Respiratory: Reports: Shortness of Breath, Wheezing, Cough, Sputum. Denies: Hemoptysis Cardiovascular: Reports: Dyspnea on Exertion, Orthopnea. Denies: Chest Pain, Edema, Palpitations Endocrine: Reports: Fatigue GI/Abdominal: Denies: Abdominal Pain, Constipation, Diarrhea, Nausea, Vomiting : Reports: No Symptoms. Denies: Dysuria, Frequency, Urgency Musculoskeletal: Reports: No Symptoms Skin: Reports: No Symptoms Neurological: Reports: No Symptoms Psychiatric: Reports: No Symptoms Hematologic/Lymphatic: Reports: No Symptoms Immunologic: Reports: No Symptoms ED EXAM, GENERAL - Physical Exam Exam: See Below Exam Limited By: No Limitations General Appearance: Alert, Mild Distress Eye Exam: Bilateral Eye: EOMI, PERRL Nose: Normal Inspection, Normal Mucosa, No Blood Head: Atraumatic, Normocephalic Neck: Normal Inspection, Supple, Non-Tender, Full Range of Motion Respiratory/Chest: Respiratory Distress, Decreased Breath Sounds, Wheezing, Accessory Muscle Use, Prolonged Expiration. No: Crackles, Rales, Rhonchi, Retractions Cardiovascular: Normal Peripheral Pulses, Regular Rate, Rhythm, No Edema, No Gallop, No JVD, No Murmur, No Rub, Tachycardia GI/Abdominal: Normal Bowel Sounds, Soft, Non-Tender, No Organomegaly, No Distention, No Abnormal Bruit, No Mass Extremities: Normal Inspection, Normal Range of Motion, Non-Tender, Normal Capillary Refill, No Pedal Edema Neurological: Alert, Oriented, CN II-XII Intact, Normal Cognition, Normal Gait, Normal Reflexes, No Motor/Sensory Deficits Psychiatric: Anxious Skin Exam: Warm, Dry, Intact, Normal Color, No Rash Lymphatic: No Adenopathy Course - Vital Signs Last Recorded V/S: Last Vital Signs Temp 96.7 F 02/09/18 16:46 Pulse 90 02/09/18 16:46 Resp 24 H 02/09/18 16:46 BP 115/62 02/09/18 16:46 Pulse Ox 97 02/09/18 16:46 - Orders/Labs/Meds Orders: Active Orders 24 hr Category Date Time Status Patient Status [ADT] Routine ADT 02/09/18 01:03 Active Oxygen Therapy [RC] 2355 Care 02/09/18 01:03 Active Pulse Oximetry [RC] .PRN Care 02/09/18 01:03 Active RT Aerosol Therapy [RC] 0630,1830 Care 02/09/18 01:03 Active Up With Assistance [RC] .PRN Care 02/09/18 01:03 Active Vital Signs [RC] 0800,1200,1600,2000,0000,0400 Care 02/09/18 01:03 Active Regular Diet [DIET] Diet 02/09/18 Breakfast Active CTA Chest W WO Contrast [Ang Chest] [CT] Stat Exams 02/08/18 23:38 Taken Chest 2V [CR] Stat Exams 02/08/18 22:54 Taken CULTURE BLOOD [BC] Stat Lab 02/08/18 22:50 Received CULTURE BLOOD [BC] Stat Lab 02/08/18 23:08 Received ALPRAZolam [Xanax] Med 02/09/18 01:03 Active 0.25 - 0.5 mg PO Q6H PRN Acetaminophen [Tylenol] Med 02/09/18 01:03 Active 650 mg PO Q4H PRN Albuterol [Ventolin HFA] Med 02/09/18 01:03 Active 0 gm INH BID PRN Albuterol/Ipratropium [DuoNeb 3.0-0.5 MG/3 ML] Med 02/09/18 01:03 Active 3 ml NEB Q4H PRN Ibuprofen [Motrin] Med 02/09/18 01:03 Active 600 mg PO Q6H PRN Ipratropium [Atrovent] Med 02/09/18 01:03 Active 0.5 mg NEB Q4H PRN Magnesium Hydroxide [Milk of Magnesia] Med 02/09/18 01:03 Active 30 ml PO Q12H PRN Polyethylene Glycol 3350 [MiraLAX] Med 02/09/18 01:03 Active 17 gm PO DAILY PRN Temazepam [Restoril] Med 02/09/18 01:03 Active 15 mg PO BEDTIME PRN Resuscitation Status Routine Resus Stat 02/09/18 00:09 Ordered Medication Orders Acetaminophen (Tylenol) 650 mg PO Q4H PRN PRN Reason: Pain (Mild 1-3)/fever Albuterol (Ventolin Hfa) 0 gm INH BID PRN PRN Reason: Dyspnea Albuterol/Ipratropium (Duoneb 3.0-0.5 Mg/3 Ml) 3 ml NEB Q4H PRN PRN Reason: Shortness Of Breath/wheezing Last Admin: 02/09/18 15:50 Dose: 3 ml Admin: 02/09/18 10:13 Dose: 3 ml Admin: 02/09/18 05:44 Dose: 3 ml Admin: 02/09/18 01:45 Dose: 3 ml Alprazolam (Xanax) 0.25 - 0.5 mg PO Q6H PRN PRN Reason: Anxiety Last Admin: 02/09/18 14:08 Dose: 0.25 mg Admin: 02/09/18 08:19 Dose: 0.25 mg Budesonide (Pulmicort) 0.5 mg NEB BID@0630,1830 [facility] Last Admin: 02/09/18 18:36 Dose: 0.5 mg Admin: 02/09/18 09:30 Dose: 0.5 mg Enoxaparin Sodium (Lovenox) 40 mg SUBCUT Q24H [facility] Famotidine (Pepcid) 10 mg PO DAILY [facility] Last Admin: 02/09/18 08:18 Dose: 10 mg Guaifenesin (Organ-I Nr) 400 mg PO TID [facility] Last Admin: 02/09/18 14:08 Dose: 400 mg Admin: 02/09/18 08:14 Dose: 400 mg Heparin Sodium (Porcine) (Heparin Lock Flush 100 Units/Ml) 500 units FLUSH ASDIRECTED PRN PRN Reason: flush port Last Admin: 02/09/18 08:20 Dose: 500 units Azithromycin 500 mg/ Sodium (Chloride) 250 mls @ 250 mls/hr IV Q24H [facility] Last Admin: 02/09/18 18:02 Dose: 250 mls/hr Ibuprofen (Motrin) 600 mg PO Q6H PRN PRN Reason: Pain (mild 1-3) Last Admin: 02/09/18 13:08 Dose: 600 mg Ipratropium [place] (Atrovent) 0.5 mg NEB Q4H PRN PRN Reason: Dyspnea Magnesium Hydroxide (Milk Of Magnesia) 30 ml PO Q12H PRN PRN Reason: Constipation Methylprednisolone Sodium Succinate (Solu-Medrol) 62.5 mg IVPUSH Q24H [facility] Last Admin: 02/09/18 18:00 Dose: 62.5 mg Arformoterol [ Brovana] 15mcg/2ml 1 AmpuleOwn Med 1 ampule INH BID@0630, 8270 [facility] Last Admin: 02/09/18 18:36 Dose: 1 ampule Admin: 02/09/18 09:30 Dose: 1 ampule Polyethylene Glycol (Miralax) 17 gm PO DAILY PRN PRN Reason: Constipation Temazepam (Restoril) 15 mg PO BEDTIME PRN PRN Reason: Sleep Labs: Laboratory Tests 02/08/18 02/08/18 02/08/18 Range/Units 22:54 23:08 23:08 WBC 10.2 H (5.0-10.0) 10^3/uL RBC 3.87 L (4.00-5.50) 10^6/uL Hgb 11.5 L (12.0-16.0) g/dL Hct 36.4 L (37.0-47.0) % MCV 94.1 H (82.0-94.0) fL MCH 29.7 (27.0-32.0) pg MCHC 31.6 L (33.0-38.0) g/dL RDW Coeff of Lucille 13.9 (11.0-15.0) % Plt Count 291 (150-400) 10^3/uL Neut % (Auto) 72.4 (35-85) % Lymph % (Auto) 12.4 (10-55) % [place] % (Auto) 10.5 (0-16) % Eos % (Auto) 4.4 (0-5) % Baso % (Auto) 0.3 (0-3) % Neut # (Auto) 7.39 H (1.80-7.00) 10^3/uL Lymph # (Auto) 1.27 (1.00-4.80) 10^3/uL [place] # (Auto) 1.07 H (0.00-0.80) 10^3/uL Eos # (Auto) 0.45 (0.00-0.45) 10^3/uL Baso # (Auto) 0.03 10^3/uL D-Dimer, Quantitative 3.23 H (0.00-0.50) Sodium 137 (136-145) mEq/L Potassium 3.8 (3.5-5.0) mEq/L Chloride 98 (98-106) mEq/L Carbon Dioxide 32 (21-32) mmol/L BUN 15 (7-18) mg/dL Creatinine 0.9 (0.6-1.0) mg/dL Est Cr Clr Drug Dosing 48.80 mL/min Estimated GFR (MDRD) > 60 (>=60) mL/min Glucose 141 H (75-99) mg/dL Calcium 8.9 (8.4-10.1) mg/dL Total Bilirubin 0.3 (0.0-1.0) mg/dL AST 21 (15-37) U/L ALT 20 (12-78) U/L Alkaline Phosphatase 51 (46-116) U/L Troponin I 0.047 (0.00-0.06) ng/mL C-Reactive Protein 4.4 H (0.2-0.8) mg/dL NT-Pro-B Natriuret Pep 393 (0-1000) pg/mL Total Protein 7.3 (6.4-8.2) g/dL Albumin 2.6 L (3.4-5.0) g/dL Urine Color (YELLOW) Urine Appearance (CLEAR) Urine pH (4.5-8.0) Ur Specific [place] (1.003-1.020) Urine Protein (NEGATIVE) mg/dL Urine Glucose (UA) (NEGATIVE) mg/dL Urine Ketones (NEGATIVE) mg/dL Urine Occult Blood (NEGATIVE) Urine Nitrite (NEGATIVE) Urine Bilirubin (NEGATIVE) Urine Urobilinogen (0.2-1.0) EU/dL Ur Leukocyte Esterase (NEGATIVE) Urine RBC (0-5) /HPF Urine WBC (0-5) /HPF Ur Squamous Epith Cells (NOT SEEN) /HPF Amorphous Sediment (NOT SEEN) /HPF Urine Bacteria (NOT SEEN) /HPF 02/09/18 Range/Units 00:03 WBC (5.0-10.0) 10^3/uL RBC (4.00-5.50) 10^6/uL Hgb (12.0-16.0) g/dL Hct (37.0-47.0) % MCV (82.0-94.0) fL MCH (27.0-32.0) pg MCHC (33.0-38.0) g/dL RDW Coeff of Lucille (11.0-15.0) % Plt Count (150-400) 10^3/uL Neut % (Auto) (35-85) % Lymph % (Auto) (10-55) % [place] % (Auto) (0-16) % Eos % (Auto) (0-5) % Baso % (Auto) (0-3) % Neut # (Auto) (1.80-7.00) 10^3/uL Lymph # (Auto) (1.00-4.80) 10^3/uL [place] # (Auto) (0.00-0.80) 10^3/uL Eos # (Auto) (0.00-0.45) 10^3/uL Baso # (Auto) 10^3/uL D-Dimer, Quantitative (0.00-0.50) Sodium (136-145) mEq/L Potassium (3.5-5.0) mEq/L Chloride (98-106) mEq/L Carbon Dioxide (21-32) mmol/L BUN (7-18) mg/dL Creatinine (0.6-1.0) mg/dL Est Cr Clr Drug Dosing mL/min Estimated GFR (MDRD) (>=60) mL/min Glucose (75-99) mg/dL Calcium (8.4-10.1) mg/dL Total Bilirubin (0.0-1.0) mg/dL AST (15-37) U/L ALT (12-78) U/L Alkaline Phosphatase (46-116) U/L Troponin I (0.00-0.06) ng/mL C-Reactive Protein (0.2-0.8) mg/dL NT-Pro-B Natriuret Pep (0-1000) pg/mL Total Protein (6.4-8.2) g/dL Albumin (3.4-5.0) g/dL Urine Color Yellow (YELLOW) Urine Appearance Cloudy (CLEAR) Urine pH 5.0 (4.5-8.0) Ur Specific [place] 1.020 (1.003-1.020) Urine Protein Trace H (NEGATIVE) mg/dL Urine Glucose (UA) 100 H (NEGATIVE) mg/dL Urine Ketones Trace H (NEGATIVE) mg/dL Urine Occult Blood Negative (NEGATIVE) Urine Nitrite Negative (NEGATIVE) Urine Bilirubin Negative (NEGATIVE) Urine Urobilinogen 0.2 (0.2-1.0) EU/dL Ur Leukocyte Esterase Negative (NEGATIVE) Urine RBC Not seen (0-5) /HPF Urine WBC Not seen (0-5) /HPF Ur Squamous Epith Cells Few H (NOT SEEN) /HPF Amorphous Sediment Many H (NOT SEEN) /HPF Urine Bacteria Few H (NOT SEEN) /HPF Meds: Medications Generic Name Dose Route Start Last Admin Trade Name Freq PRN Reason Stop Dose Admin Acetaminophen 650 mg 02/09/18 01:03 Tylenol PO Q4H PRN Pain (Mild 1-3)/fever Albuterol 0 gm 02/09/18 01:03 Ventolin Hfa INH BID PRN Dyspnea Albuterol/Ipratropium 3 ml 02/09/18 01:03 02/09/18 15:50 Duoneb 3.0-0.5 Mg/3 Ml NEB 3 ml Q4H PRN Administration Shortness Of Breath/wheezing Alprazolam 0.25 - 0.5 mg 02/09/18 01:03 02/09/18 14:08 Xanax PO 0.25 mg Q6H PRN Administration Anxiety Budesonide 0.5 mg 02/09/18 10:00 02/09/18 18:36 Pulmicort NEB 0.5 mg BID@0630,1830 [facility] Administration Enoxaparin Sodium 40 mg 02/10/18 06:30 Lovenox SUBCUT Q24H [facility] Famotidine 10 mg 02/09/18 08:00 02/09/18 08:18 Pepcid PO 10 mg DAILY [facility] Administration Guaifenesin 400 mg 02/09/18 08:00 02/09/18 14:08 Organ-I Nr PO 400 mg TID [facility] Administration Heparin Sodium (Porcine) 500 units 02/09/18 07:10 02/09/18 08:20 Heparin Lock Flush 100 Units/Ml FLUSH 500 units ASDIRECTED PRN Administration flush port Azithromycin 500 mg/ Sodium 250 mls @ 250 mls/hr 02/09/18 18:00 02/09/18 18: 02 Chloride IV 250 mls/hr Q24H [facility] Administration Ibuprofen 600 mg 02/09/18 01:03 02/09/18 13:08 Motrin PO 600 mg Q6H PRN Administration Pain (mild 1-3) Ipratropium [place] 0.5 mg 02/09/18 01:03 Atrovent NEB Q4H PRN Dyspnea Magnesium Hydroxide 30 ml 02/09/18 01:03 Milk Of Magnesia PO Q12H PRN Constipation Methylprednisolone Sodium Succinate 62.5 mg 02/09/18 18:00 02/09/18 18:00 Solu-Medrol IVPUSH 62.5 mg Q24H [facility] Administration Arformoterol [ 1 ampule 02/09/18 09:30 02/09/18 18:36 Brovana] 15mcg/2ml 1 INH 1 ampule AmpuleOwn Med BID@0630,1830 [facility] Administration Polyethylene Glycol 17 gm 02/09/18 01:03 Miralax PO DAILY PRN Constipation Temazepam 15 mg 02/09/18 01:03 Restoril PO BEDTIME PRN Sleep Discontinued Medications Generic Name Dose Route Start Last Admin Trade Name Freq PRN Reason Stop Dose Admin Albuterol 2.5 mg 02/09/18 06:00 02/09/18 05:45 Proventil Neb Soln INH Not Given Q6H [facility] Budesonide 0.5 mg 02/09/18 08:00 02/09/18 10:12 Pulmicort NEB Not Given BIDRT ALE Enoxaparin Sodium 40 mg 02/09/18 02:00 02/09/18 01:38 Lovenox SUBCUT 40 mg Q24H [facility] Administration Heparin Sodium (Porcine) Confirm 02/09/18 03:03 02/09/18 05:45 Heparin Lock Flush 100 Units/Ml Administered 02/09/18 03:04 500 units Dose Administration 500 units .ROUTE .STK-MED ONE Azithromycin 500 mg/ Sodium 250 mls @ 250 mls/hr 02/09/18 02:00 02/09/18 01: 44 Chloride IV 250 mls/hr Q24H [facility] Administration Iopamidol 100 ml 02/09/18 00:17 02/09/18 00:27 Isovue-370 (76%) IVPUSH 02/09/18 00:18 100 ml ONETIME ONE Administration Lidocaine/Prilocaine 5 gm 02/08/18 23:44 02/08/18 23:50 Emla Crm TOP 02/08/18 23:45 1 applic ONETIME ONE Administration Methylprednisolone Sodium Succinate 62.5 mg 02/09/18 02:00 02/09/18 01:34 Solu-Medrol IVPUSH 62.5 mg Q24H [facility] Administration - Re-Assessments/Exams Free Text/Narrative Re-Assessment/Exam: 02/09/18 00:00 Discussed lab results with patient. Does have elevated D-dimer. Will proceed with chest CTA. CXR does show right pleural effusion. She did recently have chest CTA back in December as well, but given significant labored breathing I feel it is necessary to repeat. Discussed code status with patient and safety issues with staying at local facility with no ventilator. Patient gets very angry and reports she "is not going anywhere but here." I did again reiterate that we do not have the specialists that she likely needs. Patient voices understanding and refuses to transfer to outside facility. Will proceed with chest CTA and admit to hospital. Departure - Departure Time of Disposition: 00:06 Disposition: Admitted As Inpatient 64 Condition: Fair Clinical Impression: COPD exacerbation, HCAP (healthcare-associated pneumonia), Pleural effusion Fever Qualifiers: Fever type: drug-induced Qualified Code(s): R50.2 - Drug induced fever - Discharge Information *PRESCRIPTION DRUG MONITORING PROGRAM REVIEWED*: Not Applicable *COPY OF PRESCRIPTION DRUG MONITORING REPORT IN PATIENT GUERO: Not Applicable - Problem List & Annotations (1) HCAP (healthcare-associated pneumonia) SNOMED Code(s): 245641195 Code(s): J18.9 - PNEUMONIA, UNSPECIFIED ORGANISM Status: Acute Current Visit: Yes (2) COPD exacerbation SNOMED Code(s): 713839232 Code(s): J44.1 - CHRONIC OBSTRUCTIVE PULMONARY DISEASE W (ACUTE) EXACERBATION Status: Acute Current Visit: Yes (3) Pleural effusion SNOMED Code(s): 38654419 Code(s): J90 - PLEURAL EFFUSION, NOT ELSEWHERE CLASSIFIED Status: Acute Priority: High Current Visit: No Annotation/Comment:: Right - Problem List Review Problem List Initiated/Reviewed/Updated: Yes - My Orders Last 24 Hours: My Active Orders 02/08/18 22:50 CULTURE BLOOD [BC] Stat 02/08/18 22:54 Chest 2V [CR] Stat 02/08/18 23:08 CULTURE BLOOD [BC] Stat 02/08/18 23:38 CTA Chest W WO Contrast [Ang Chest] [CT] Stat 02/09/18 00:09 Resuscitation Status Routine 02/09/18 01:03 Patient Status [ADT] Routine Oxygen Therapy [RC] 2355 Pulse Oximetry [RC] .PRN RT Aerosol Therapy [RC] 0630,1830 Up With Assistance [RC] .PRN Vital Signs [RC] 0800,1200,1600,2000,0000,0400 ALPRAZolam [Xanax] 0.25 - 0.5 mg PO Q6H PRN Acetaminophen [Tylenol] 650 mg PO Q4H PRN Albuterol [Ventolin HFA] 0 gm INH BID PRN Albuterol/Ipratropium [DuoNeb 3.0-0.5 MG/3 ML] 3 ml NEB Q4H PRN Ibuprofen [Motrin] 600 mg PO Q6H PRN Ipratropium [Atrovent] 0.5 mg NEB Q4H PRN Magnesium Hydroxide [Milk of Magnesia] 30 ml PO Q12H PRN Polyethylene Glycol 3350 [MiraLAX] 17 gm PO DAILY PRN Temazepam [Restoril] 15 mg PO BEDTIME PRN 02/09/18 Breakfast Regular Diet [DIET] - Assessment/Plan Admission H&P: Please use this note as an admission H&P Last 24 Hours: My Active Orders 02/08/18 22:50 CULTURE BLOOD [BC] Stat 02/08/18 22:54 Chest 2V [CR] Stat 02/08/18 23:08 CULTURE BLOOD [BC] Stat 02/08/18 23:38 CTA Chest W WO Contrast [Ang Chest] [CT] Stat 02/09/18 00:09 Resuscitation Status Routine 02/09/18 01:03 Patient Status [ADT] Routine Oxygen Therapy [RC] 2355 Pulse Oximetry [RC] .PRN RT Aerosol Therapy [RC] 0630,1830 Up With Assistance [RC] .PRN Vital Signs [RC] 0800,1200,1600,2000,0000,0400 ALPRAZolam [Xanax] 0.25 - 0.5 mg PO Q6H PRN Acetaminophen [Tylenol] 650 mg PO Q4H PRN Albuterol [Ventolin HFA] 0 gm INH BID PRN Albuterol/Ipratropium [DuoNeb 3.0-0.5 MG/3 ML] 3 ml NEB Q4H PRN Ibuprofen [Motrin] 600 mg PO Q6H PRN Ipratropium [Atrovent] 0.5 mg NEB Q4H PRN Magnesium Hydroxide [Milk of Magnesia] 30 ml PO Q12H PRN Polyethylene Glycol 3350 [MiraLAX] 17 gm PO DAILY PRN Temazepam [Restoril] 15 mg PO BEDTIME PRN 02/09/18 Breakfast Regular Diet [DIET] Plan: Admit to inpatient. Will get chest CTA to r/o PE given elevated D-dimer. Treat with steroids and antibiotics. Nebs as ordered. She reports she had reaction to "whatever antibiotic we gave her last time." She was on cefepime, vancomycin, and azithromycin per infectious disease in the past. She refuses to take the IV antibiotics she was on last time, which were cefepime and vancomycin. Adjust O2 to keep sats > 92%.
[2018-02-08 23:27] LABS: CHLORIDE,CL 98 mEq/L (98-106); SODIUM,NA 137 mEq/L (136-145)
[2018-02-08] MEDS ORDERED: Lidocaine/Prilocaine 2.5-2.5% Crm 5 GM Tube TOP ONE (23:44)
[2018-02-09] MEDS ORDERED: Iopamidol 755 Mg/ML 100 ML Bottle IVPUSH ONE (00:17)
[2018-02-09] MEDS ORDERED: Acetaminophen 325 MG Tab PO PRN (01:03)
[2018-02-09] MEDS ORDERED: Magnesium Hydroxide 400 MG/5 ML Susp 30 ML Cup PO PRN (01:03)
[2018-02-09] MEDS ORDERED: Ibuprofen 200 MG Tab PO PRN (01:03)
[2018-02-09] MEDS ORDERED: Temazepam 15 MG Cap PO PRN (01:03)
[2018-02-09] MEDS ORDERED: Ipratropium 0.02% 0.5 MG/2.5 ML Neb Soln NEB PRN (01:03)
[2018-02-09] MEDS ORDERED: Polyethylene Glycol 3350 Powder 17 GM Packet PO PRN (01:03)
[2018-02-09] MEDS ORDERED: Albuterol HFA 18 Gm Inhaler INH PRN (01:03)
[2018-02-09] MEDS: Albuterol/Ipratropium 3.0-0.5 MG/3 ML Neb Soln NEB PRN ×4 (01:45→15:50)
[2018-02-09] MEDS ORDERED: Enoxaparin 40 MG/0.4 ML Syringe SUBCUT SCH (02:00)
[2018-02-09] MEDS ORDERED: Azithromycin 500 MG in Sodium Chloride 0.9% 250 ML IV SCH ×2 (02:00→18:00)
[2018-02-09] MEDS ORDERED: methylPREDNISolone Sodium Succinate 125 MG/2 ML SDV IVPUSH SCH ×2 (02:00→18:00)
[2018-02-09] MEDS ORDERED: Albuterol 0.083% 2.5 MG/3 ML Neb Soln INH SCH (06:00)
[2018-02-09] MEDS ORDERED: Non-Formulary Medication 1 Each (Guaifenesin [Mucinex] 600 MG) PO SCH (08:00)
[2018-02-09] MEDS ORDERED: ARFORMOTEROL INH SCH (08:00)
[2018-02-09] MEDS ORDERED: Non-Formulary Medication 1 Each (Ranitidine Hcl [Zantac 75] 75 MG) PO SCH (08:00)
[2018-02-09] MEDS ORDERED: Budesonide 0.5 MG/2 ML Neb Susp NEB SCH (08:00)
[2018-02-09] MEDS: guaiFENesin 200 MG Tab PO SCH ×3 (08:14→19:20)
[2018-02-09] MEDS: Famotidine 20 MG Tab PO SCH (08:18)
[2018-02-09] MEDS: ALPRAZOLAM 0.25 MG PO PRN ×3 (08:19→20:03)
[2018-02-09 08:37] LABS: CHLORIDE,CL 101 mEq/L (98-106); SODIUM,NA 140 mEq/L (136-145)
[2018-02-09] MEDS: ARFORMOTEROL 15 MCG/2 ML INH SCH ×2 (09:30→18:36)
[2018-02-09] MEDS: Budesonide 0.5 MG/2 ML Neb Susp NEB SCH ×2 (09:30→18:36)
--- NOTE | 2018-02-09 16:10 | PCM.PN ---
- General Info Date of Service: 02/09/18 Admission Dx/Problem (Free Text): HCAP COPD Right Pleural Effusion Subjective Update: Patient reports she is feeling much better today. Does feel like her cough has loosened some and she is breathing easier. Has been afebrile. She is currently only receiving azithromycin and reports she is tolerating this well. She has been using DuoNebs as needed. Functional Status: Reports: Pain Controlled, Tolerating Diet, Ambulating, Urinating. Denies: New Symptoms - Review of Systems General: Reports: Fatigue. Denies: Fever, Weakness, Chills HEENT: Reports: No Symptoms Pulmonary: Reports: Shortness of Breath, Cough, Sputum. Denies: Pleuritic Chest Pain, Hemoptysis, Wheezing Cardiovascular: Reports: Dyspnea on Exertion, Orthopnea. Denies: Chest Pain, Edema, Lightheadedness Gastrointestinal: Denies: Abdominal Pain, Constipation, Decreased Appetite, Diarrhea, Nausea, Vomiting Genitourinary: Denies: Dysuria, Frequency, Urgency Musculoskeletal: Reports: No Symptoms Skin: Reports: No Symptoms Neurological: Reports: No Symptoms Psychiatric: Reports: No Symptoms - Patient Data Vitals - Most Recent: Last Vital Signs Temp 96.8 F 02/09/18 12:00 Pulse 96 02/09/18 12:00 Resp 24 H 02/09/18 12:00 BP 110/55 L 02/09/18 12:00 Pulse Ox 97 02/09/18 12:00 Weight - Most Recent: 144 lb 1.6 oz I&O - Last 24 Hours: Intake & Output 02/09/18 02/09/18 02/09/18 06:59 14:59 22:59 Output Total 100 Balance -100 Lab Results Last 24 Hours: Laboratory Results - last 24 hr 02/08/18 02/08/18 02/08/18 Range/Units 22:54 23:08 23:08 WBC 10.2 H (5.0-10.0) 10^3/uL RBC 3.87 L (4.00-5.50) 10^6/uL Hgb 11.5 L (12.0-16.0) g/dL Hct 36.4 L (37.0-47.0) % MCV 94.1 H (82.0-94.0) fL MCH 29.7 (27.0-32.0) pg MCHC 31.6 L (33.0-38.0) g/dL RDW Coeff of [place] 13.9 (11.0-15.0) % Plt Count 291 (150-400) 10^3/uL Neut % (Auto) 72.4 (35-85) % Lymph % (Auto) 12.4 (10-55) % [place] % (Auto) 10.5 (0-16) % Eos % (Auto) 4.4 (0-5) % Baso % (Auto) 0.3 (0-3) % Neut # (Auto) 7.39 H (1.80-7.00) 10^3/uL Lymph # (Auto) 1.27 (1.00-4.80) 10^3/uL [place] # (Auto) 1.07 H (0.00-0.80) 10^3/uL Eos # (Auto) 0.45 (0.00-0.45) 10^3/uL Baso # (Auto) 0.03 10^3/uL D-Dimer, Quantitative 3.23 H (0.00-0.50) Sodium 137 (136-145) mEq/L Potassium 3.8 (3.5-5.0) mEq/L Chloride 98 (98-106) mEq/L Carbon Dioxide 32 (21-32) mmol/L BUN 15 (7-18) mg/dL Creatinine 0.9 (0.6-1.0) mg/dL Est Cr Clr Drug Dosing 48.80 mL/min Estimated GFR (MDRD) > 60 (>=60) mL/min Glucose 141 H (75-99) mg/dL Calcium 8.9 (8.4-10.1) mg/dL Total Bilirubin 0.3 (0.0-1.0) mg/dL AST 21 (15-37) U/L ALT 20 (12-78) U/L Alkaline Phosphatase 51 (46-116) U/L Troponin I 0.047 (0.00-0.06) ng/mL C-Reactive Protein 4.4 H (0.2-0.8) mg/dL NT-Pro-B Natriuret Pep 393 (0-1000) pg/mL Total Protein 7.3 (6.4-8.2) g/dL Albumin 2.6 L (3.4-5.0) g/dL Urine Color (YELLOW) Urine Appearance (CLEAR) Urine pH (4.5-8.0) Ur Specific [place] (1.003-1.020) Urine Protein (NEGATIVE) mg/dL Urine Glucose (UA) (NEGATIVE) mg/dL Urine Ketones (NEGATIVE) mg/dL Urine Occult Blood (NEGATIVE) Urine Nitrite (NEGATIVE) Urine Bilirubin (NEGATIVE) Urine Urobilinogen (0.2-1.0) EU/dL Ur Leukocyte Esterase (NEGATIVE) Urine RBC (0-5) /HPF Urine WBC (0-5) /HPF Ur Squamous Epith Cells (NOT SEEN) /HPF Amorphous Sediment (NOT SEEN) /HPF Urine Bacteria (NOT SEEN) /HPF 02/09/18 02/09/18 02/09/18 Range/Units 00:03 05:11 05:11 WBC 5.8 (5.0-10.0) 10^3/uL RBC 3.81 L (4.00-5.50) 10^6/uL Hgb 11.3 L (12.0-16.0) g/dL Hct 36.3 L (37.0-47.0) % MCV 95.3 H (82.0-94.0) fL MCH 29.7 (27.0-32.0) pg MCHC 31.1 L (33.0-38.0) g/dL RDW Coeff of [place] 13.9 (11.0-15.0) % Plt Count 294 (150-400) 10^3/uL Neut % (Auto) 89.6 H (35-85) % Lymph % (Auto) 7.8 L (10-55) % [place] % (Auto) 2.3 (0-16) % Eos % (Auto) 0 (0-5) % Baso % (Auto) 0.3 (0-3) % Neut # (Auto) 5.16 (1.80-7.00) 10^3/uL Lymph # (Auto) 0.45 L (1.00-4.80) 10^3/uL [place] # (Auto) 0.13 (0.00-0.80) 10^3/uL Eos # (Auto) 0.00 (0.00-0.45) 10^3/uL Baso # (Auto) 0.02 10^3/uL D-Dimer, Quantitative (0.00-0.50) Sodium 140 (136-145) mEq/L Potassium 4.1 (3.5-5.0) mEq/L Chloride 101 (98-106) mEq/L Carbon Dioxide 32 (21-32) mmol/L BUN 11 (7-18) mg/dL Creatinine 0.8 (0.6-1.0) mg/dL Est Cr Clr Drug Dosing 54.90 mL/min Estimated GFR (MDRD) > 60 (>=60) mL/min Glucose 164 H (75-99) mg/dL Calcium 9.0 (8.4-10.1) mg/dL Total Bilirubin (0.0-1.0) mg/dL AST (15-37) U/L ALT (12-78) U/L Alkaline Phosphatase (46-116) U/L Troponin I (0.00-0.06) ng/mL C-Reactive Protein 5.2 H (0.2-0.8) mg/dL NT-Pro-B Natriuret Pep (0-1000) pg/mL Total Protein (6.4-8.2) g/dL Albumin (3.4-5.0) g/dL Urine Color Yellow (YELLOW) Urine Appearance Cloudy (CLEAR) Urine pH 5.0 (4.5-8.0) Ur Specific [place] 1.020 (1.003-1.020) Urine Protein Trace H (NEGATIVE) mg/dL Urine Glucose (UA) 100 H (NEGATIVE) mg/dL Urine Ketones Trace H (NEGATIVE) mg/dL Urine Occult Blood Negative (NEGATIVE) Urine Nitrite Negative (NEGATIVE) Urine Bilirubin Negative (NEGATIVE) Urine Urobilinogen 0.2 (0.2-1.0) EU/dL Ur Leukocyte Esterase Negative (NEGATIVE) Urine RBC Not seen (0-5) /HPF Urine WBC Not seen (0-5) /HPF Ur Squamous Epith Cells Few H (NOT SEEN) /HPF Amorphous Sediment Many H (NOT SEEN) /HPF Urine Bacteria Few H (NOT SEEN) /HPF Freddy Results Last 24 Hours: Microbiology 02/08/18 22:54 Influenza Type A Antigen Screen - Final Nasal Aspirate, Unspecified NEGATIVE INFLUENZA A VIRUS AG Influenza Type B Antigen Screen - Final NEGATIVE INFLUENZA B VIRUS AG Med Orders - Current: Current Medications Acetaminophen (Tylenol) 650 mg PO Q4H PRN PRN Reason: Pain (Mild 1-3)/fever Albuterol (Ventolin Hfa) 0 gm INH BID PRN PRN Reason: Dyspnea Albuterol/Ipratropium (Duoneb 3.0-0.5 Mg/3 Ml) 3 ml NEB Q4H PRN PRN Reason: Shortness Of Breath/wheezing Last Admin: 02/09/18 15:50 Dose: 3 ml Alprazolam (Xanax) 0.25 - 0.5 mg PO Q6H PRN PRN Reason: Anxiety Last Admin: 02/09/18 14:08 Dose: 0.25 mg Budesonide (Pulmicort) 0.5 mg NEB BID@0630,1830 [facility] Last Admin: 02/09/18 09:30 Dose: 0.5 mg Enoxaparin Sodium (Lovenox) 40 mg SUBCUT Q24H [facility] Last Admin: 02/09/18 01:38 Dose: 40 mg Famotidine (Pepcid) 10 mg PO DAILY [facility] Last Admin: 02/09/18 08:18 Dose: 10 mg Guaifenesin (Organ-I Nr) 400 mg PO TID [facility] Last Admin: 02/09/18 14:08 Dose: 400 mg Heparin Sodium (Porcine) (Heparin Lock Flush 100 Units/Ml) 500 units FLUSH ASDIRECTED PRN PRN Reason: flush port Last Admin: 02/09/18 08:20 Dose: 500 units Azithromycin 500 mg/ Sodium (Chloride) 250 mls @ 250 mls/hr IV Q24H [facility] Ibuprofen (Motrin) 600 mg PO Q6H PRN PRN Reason: Pain (mild 1-3) Last Admin: 02/09/18 13:08 Dose: 600 mg Ipratropium [place] (Atrovent) 0.5 mg NEB Q4H PRN PRN Reason: Dyspnea Magnesium Hydroxide (Milk Of Magnesia) 30 ml PO Q12H PRN PRN Reason: Constipation Methylprednisolone Sodium Succinate (Solu-Medrol) 62.5 mg IVPUSH Q24H [facility] Arformoterol [ Brovana] 15mcg/2ml 1 AmpuleOwn Med 1 ampule INH BID@0630, 1830 [facility] Last Admin: 02/09/18 09:30 Dose: 1 ampule Polyethylene Glycol (Miralax) 17 gm PO DAILY PRN PRN Reason: Constipation Temazepam (Restoril) 15 mg PO BEDTIME PRN PRN Reason: Sleep Discontinued Medications Albuterol (Proventil Neb Soln) 2.5 mg INH Q6H [facility] Last Admin: 02/09/18 05:45 Dose: Not Given Budesonide (Pulmicort) 0.5 mg NEB BIDRT [facility] Last Admin: 02/09/18 10:12 Dose: Not Given Heparin Sodium (Porcine) (Heparin Lock Flush 100 Units/Ml) Confirm Administered Dose 500 units .ROUTE .STK-MED ONE Stop: 02/09/18 03:04 Last Admin: 02/09/18 05:45 Dose: 500 units Azithromycin 500 mg/ Sodium (Chloride) 250 mls @ 250 mls/hr IV Q24H [facility] Last Admin: 02/09/18 01:44 Dose: 250 mls/hr Iopamidol (Isovue-370 (76%)) 100 ml IVPUSH ONETIME ONE Stop: 02/09/18 00:18 Last Admin: 02/09/18 00:27 Dose: 100 ml Lidocaine/Prilocaine (Emla Crm) 5 gm TOP ONETIME ONE Stop: 02/08/18 23:45 Last Admin: 02/08/18 23:50 Dose: 1 applic Methylprednisolone Sodium Succinate (Solu-Medrol) 62.5 mg IVPUSH Q24H [facility] Last Admin: 02/09/18 01:34 Dose: 62.5 mg - Exam Quality Assessment: Supplemental Oxygen, DVT Prophylaxis General: Alert, Oriented, No Acute Distress Neck: Supple Lungs: Normal Respiratory Effort, Decreased Breath Sounds, Other (labored breathing with talking). No: Wheezing Cardiovascular: Regular Rhythm, Tachycardia GI/Abdominal Exam: Normal Bowel Sounds, Soft, Non-Tender, No Organomegaly, No Distention, No Abnormal Bruit, No Mass, Pelvis Stable Extremities: Normal Inspection, Normal Range of Motion, Non-Tender, No Pedal Edema, Normal Capillary Refill Neurological: No New Focal Deficit Psy/Mental Status: Anxious - Problem List & Annotations (1) HCAP (healthcare-associated pneumonia) SNOMED Code(s): 351241774 Code(s): J18.9 - PNEUMONIA, UNSPECIFIED ORGANISM Status: Acute Current Visit: Yes (2) COPD exacerbation SNOMED Code(s): 688675900 Code(s): J44.1 - CHRONIC OBSTRUCTIVE PULMONARY DISEASE W (ACUTE) EXACERBATION Status: Acute Current Visit: Yes (3) Pleural effusion SNOMED Code(s): 59483369 Code(s): J90 - PLEURAL EFFUSION, NOT ELSEWHERE CLASSIFIED Status: Acute Priority: High Current Visit: Yes Annotation/Comment:: Right - Problem List Review Problem List Initiated/Reviewed/Updated: Yes - My Orders Last 24 Hours: My Active Orders 02/08/18 22:50 CULTURE BLOOD [BC] Stat 02/08/18 22:54 Chest 2V [CR] Stat 02/08/18 23:08 CULTURE BLOOD [BC] Stat 02/08/18 23:38 CTA Chest W WO Contrast [Ang Chest] [CT] Stat 02/09/18 00:09 Resuscitation Status Routine 02/09/18 01:03 Patient Status [ADT] Routine Oxygen Therapy [RC] 2355 Pulse Oximetry [RC] .PRN RT Aerosol Therapy [RC] 0800,2000 Up With Assistance [RC] .PRN Vital Signs [RC] 0800,1200,1600,2000,0000,0400 ALPRAZolam [Xanax] 0.25 - 0.5 mg PO Q6H PRN Acetaminophen [Tylenol] 650 mg PO Q4H PRN Albuterol [Ventolin HFA] 0 gm INH BID PRN Albuterol/Ipratropium [DuoNeb 3.0-0.5 MG/3 ML] 3 ml NEB Q4H PRN Ibuprofen [Motrin] 600 mg PO Q6H PRN Ipratropium [Atrovent] 0.5 mg NEB Q4H PRN Magnesium Hydroxide [Milk of Magnesia] 30 ml PO Q12H PRN Polyethylene Glycol 3350 [MiraLAX] 17 gm PO DAILY PRN Temazepam [Restoril] 15 mg PO BEDTIME PRN 02/09/18 02:00 Enoxaparin [Lovenox] 40 mg SUBCUT Q24H 02/09/18 07:10 Heparin Sodium [Heparin Lock Flush 100 Units/ML] 500 units FLUSH ASDIRECTED PRN 02/09/18 08:00 Famotidine [Pepcid] 10 mg PO DAILY guaiFENesin [Organ-I NR] 400 mg PO TID 02/09/18 09:30 Arformoterol [Brovana] 1 ampule INH BID@02/09/18 10:00 Budesonide [Pulmicort] 0.5 mg NEB BID@02/09/18 18:00 Azithromycin [Zithromax] 500 mg Sodium Chloride 0.9% [Normal Saline] 250 ml IV Q24H methylPREDNISolone Sod Succ [Solu-MEDROL] 62.5 mg IVPUSH Q24H 02/09/18 Breakfast Regular Diet [DIET] - Plan Plan:: Chest CTA shows severe emphysema, interval enlargement of focal infiltrate within superior segment of the right lower lobe measuring 39 x 30 mm, as well as a new 7.4 mm noncalcified irregular shaped nodule in the right middle lobe. Focal infiltrate has increased in size from December chest CTA despite penitentiary antibiotic treatment in the interval. She also has recurring moderate right sided pleural effusion. She does report that when she had thoracentesis last month, they told her there were no cancer cells. I discussed with patient that she should be seen by pulmonolgist as well as infectious disease specialists to determine why this area is getting larger. She reports she has seen them in the past and refuses transfer to higher level of care. I discussed with her that with her long list of allergies, it is difficult to ensure we are adequately cover her with appropriate antibiotics. WBC did improve from 10.2 to 5.8. CRP increased from 4.4 to 5.2. Overall, patient does seem to be breathing better. Patient also reports she refuses to have cardiac monitoring. Will discontinue cardiac monitoring. Patient wishes to "continue whatever we're doing and wait until she can talk to Dr. Nicole." Patient has improved with azithromycin and solumedrol, as well as DUonebs. Will continue this and consult with patient's PCP in am.
[2018-02-10] MEDS: Albuterol/Ipratropium 3.0-0.5 MG/3 ML Neb Soln NEB PRN ×3 (00:26→08:40)
[2018-02-10] MEDS: ALPRAZOLAM 0.25 MG PO PRN ×2 (02:52→08:40)
[2018-02-10] MEDS: Budesonide 0.5 MG/2 ML Neb Susp NEB SCH (06:24)
[2018-02-10] MEDS: ARFORMOTEROL 15 MCG/2 ML INH SCH (06:25)
[2018-02-10] MEDS ORDERED: Enoxaparin 40 MG/0.4 ML Syringe SUBCUT SCH (06:30)
[2018-02-10] MEDS: guaiFENesin 200 MG Tab PO SCH (08:01)
[2018-02-10] MEDS: Famotidine 20 MG Tab PO SCH (08:01)
[2018-02-10 08:28] LABS: CHLORIDE,CL 103 mEq/L (98-106); SODIUM,NA 143 mEq/L (136-145)
[2018-02-10] MEDS ORDERED: ALPRAZolam 0.25 MG Tab PO ONE (09:26)
[2018-02-10 10:00] VITALS: BP 123/58
--- NOTE | 2018-02-10 22:22 | PCM.DCSUM1 ---
Discharge Summary - Hospital Course Free Text/Narrative:: Patient presented to ER per EMS with increased shortness of breath and fever. Has history of end stage COPD and recent history of breast cancer. Was unable to tolerate more than 2 courses of chemotherapy due to increased weakness, nausea. She ultimately then was admitted for pneumonia, on multiple IV antibiotics, developed rashes to them. Had a right pleural effusion that developed after first hospitalization, was transferred back to [place] for thoracentesis and eventually discharged back here for 10 further days of antibiotics. SHe had since been recovering at home with home health care. On arrival to ER, did feel she had developed illness as has been ill with bronchitis. Fever at home, 103.6 per EMS. CTA of chest was done due to elevated d-dimer. Negative for PE. Did show increased pleural effusion and questionable area of infiltrate versus neoplasm and new 7 mm nodule noted. Refused to be transferred to [place] so admitted here and started on IV Zithromax. Diagnosis: Stroke: No Modified [place] Scale: No Symptoms at All Modified [place] Scale Score: 0 - Discharge Data Discharge Date: 02/10/18 Discharge Disposition: DC/Tfer to Acute Hospital 02 Condition: Fair - Patient Summary/Data Complications: none Hospital Course: Patient continues to feel short of breath. Sats 94% on 4 liters. Afebrile this am. Much discussion was held with patient by myself as well as by Dr. Nicole. 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 She will also likely need a lung biopsy due to reaccumulation of fluid in her right lung and new nodule noted. Contacted [place] [facility] and spoke with hospitalist. Dr. Bird was also consulted per [facility]. Did agree to accept the patient in transfer for further work up, thoracentesis. S transfer arranged. Patient aware of risks of transfer including worsening status, vehicle crash and . Benefits of transfer include specialized care, ability for intervention for pleural effusion. Risks of non transfer include worsening status and even . Benefits of non transfer include care close to home. Patient continues full code status. Agrees to transfer. - Patient Instructions Diet: NPO Activity: As Tolerated - Discharge Plan *PRESCRIPTION DRUG MONITORING PROGRAM REVIEWED*: Not Applicable *COPY OF PRESCRIPTION DRUG MONITORING REPORT IN PATIENT GUERO: Not Applicable Home Medications: Home Meds ALPRAZolam [Alprazolam] 0.25 mg PO QID PRN #120 tablet 09/11/16 [Rx] Budesonide [Pulmicort] 0.5 mg NEB 0700,1900 01/14/17 [History] Arformoterol [Brovana] 1 ampule INH BID 09/24/17 [History] Ipratropium [Atrovent] 1 inh NEB Q4H PRN 11/10/17 [History] guaiFENesin [Mucinex] 600 mg PO BID 11/10/17 [History] Ranitidine HCl [Zantac 75] 75 mg PO DAILY 11/14/17 [History] Ibuprofen 400 mg PO TID PRN 01/16/18 [History] Albuterol [Ventolin HFA] 2 puff INH BID PRN 02/08/18 [History] Forms: ED Department Discharge Referrals: Gaston Nicole MD [Primary Care Provider] - - Discharge Summary/Plan Comment DC Time >30 min.: No Discharge Summary/Plan Comment: Transfer to [facility] per [facility]. - General Info Date of Service: 02/10/18 Admission Dx/Problem (Free Text: HCAP COPD Right Pleural Effusion Functional Status: Reports: Pain Controlled, Tolerating Diet. Denies: Ambulating - Review of Systems General: Reports: Weakness, Fatigue. Denies: Fever HEENT: Reports: Rhinitis Pulmonary: Reports: Shortness of Breath, Cough Cardiovascular: Reports: Edema. Denies: Chest Pain, Lightheadedness Gastrointestinal: Denies: Abdominal Pain, Nausea, Vomiting Genitourinary: Reports: No Symptoms Musculoskeletal: Reports: No Symptoms Skin: Reports: No Symptoms - Patient Data Vitals - Most Recent: Last Vital Signs Temp 97.3 F 02/10/18 09:59 Pulse 97 02/10/18 09:59 Resp 18 02/10/18 09:59 BP 123/58 L 02/10/18 09:59 Pulse Ox 99 02/10/18 09:59 Weight - Most Recent: 144 lb 1.6 oz Lab Results - Last 24 hrs: Laboratory Results - last 24 hr 02/10/18 02/10/18 Range/Units 08:10 08:10 WBC 7.4 (5.0-10.0) 10^3/uL RBC 3.66 L (4.00-5.50) 10^6/uL Hgb 11.0 L (12.0-16.0) g/dL Hct 35.4 L (37.0-47.0) % MCV 96.7 H (82.0-94.0) fL MCH 30.1 (27.0-32.0) pg MCHC 31.1 L (33.0-38.0) g/dL RDW Coeff of Lucille 13.9 (11.0-15.0) % Plt Count 343 (150-400) 10^3/uL Neut % (Auto) 63.6 (35-85) % Lymph % (Auto) 20.0 (10-55) % [place] % (Auto) 16.3 H (0-16) % Eos % (Auto) 0 (0-5) % Baso % (Auto) 0.1 (0-3) % Neut # (Auto) 4.68 (1.80-7.00) 10^3/uL Lymph # (Auto) 1.47 (1.00-4.80) 10^3/uL [place] # (Auto) 1.20 H (0.00-0.80) 10^3/uL Eos # (Auto) 0.00 (0.00-0.45) 10^3/uL Baso # (Auto) 0.01 10^3/uL Sodium 143 (136-145) mEq/L Potassium 3.9 (3.5-5.0) mEq/L Chloride 103 (98-106) mEq/L Carbon Dioxide 33 H (21-32) mmol/L BUN 13 (7-18) mg/dL Creatinine 0.8 (0.6-1.0) mg/dL Est Cr Clr Drug Dosing 54.90 mL/min Estimated GFR (MDRD) > 60 (>=60) mL/min Glucose 116 H D (75-99) mg/dL Calcium 9.0 (8.4-10.1) mg/dL C-Reactive Protein 2.8 H (0.2-0.8) mg/dL RAHEL Results - Last 24 hrs: Microbiology 02/08/18 22:50 Aerobic Blood Culture - Preliminary Blood - Venous NO GROWTH AFTER 1 DAY Anaerobic Blood Culture - Preliminary NO GROWTH AFTER 1 DAY 02/08/18 23:08 Aerobic Blood Culture - Preliminary Blood - Venous - Lab Draw NO GROWTH AFTER 1 DAY Anaerobic Blood Culture - Preliminary NO GROWTH AFTER 1 DAY Med Orders - Current: Current Medications Discontinued Medications Acetaminophen (Tylenol) 650 mg PO Q4H PRN PRN Reason: Pain (Mild 1-3)/fever Albuterol (Ventolin Hfa) 0 gm INH BID PRN PRN Reason: Dyspnea Albuterol (Proventil Neb Soln) 2.5 mg INH Q6H [facility] Last Admin: 02/09/18 05:45 Dose: Not Given Albuterol/Ipratropium (Duoneb 3.0-0.5 Mg/3 Ml) 3 ml NEB Q4H PRN PRN Reason: Shortness Of Breath/wheezing Last Admin: 02/10/18 08:40 Dose: 3 ml Alprazolam (Xanax) 0.25 - 0.5 mg PO Q6H PRN PRN Reason: Anxiety Last Admin: 02/10/18 08:40 Dose: 0.25 mg Alprazolam (Xanax) 0.25 mg PO ONETIME ONE Stop: 02/10/18 09:27 Last Admin: 02/10/18 09:52 Dose: 0.25 mg Budesonide (Pulmicort) 0.5 mg NEB BIDRT [facility] Last Admin: 02/09/18 10:12 Dose: Not Given Budesonide (Pulmicort) 0.5 mg NEB BID@0630,1830 [facility] Last Admin: 02/10/18 06:24 Dose: 0.5 mg Enoxaparin Sodium (Lovenox) 40 mg SUBCUT Q24H [facility] Last Admin: 02/09/18 01:38 Dose: 40 mg Enoxaparin Sodium (Lovenox) 40 mg SUBCUT Q24H [facility] Last Admin: 02/10/18 06:23 Dose: 40 mg Famotidine (Pepcid) 10 mg PO DAILY [facility] Last Admin: 02/10/18 08:01 Dose: 10 mg Guaifenesin (Organ-I Nr) 400 mg PO TID [facility] Last Admin: 02/10/18 08:01 Dose: 400 mg Heparin Sodium (Porcine) (Heparin Lock Flush 100 Units/Ml) Confirm Administered Dose 500 units .ROUTE .STK-MED ONE Stop: 02/09/18 03:04 Last Admin: 02/09/18 05:45 Dose: 500 units Heparin Sodium (Porcine) (Heparin Lock Flush 100 Units/Ml) 500 units FLUSH ASDIRECTED PRN PRN Reason: flush port Last Admin: 02/09/18 08:20 Dose: 500 units Azithromycin 500 mg/ Sodium (Chloride) 250 mls @ 250 mls/hr IV Q24H [facility] Last Admin: 02/09/18 01:44 Dose: 250 mls/hr Azithromycin 500 mg/ Sodium (Chloride) 250 mls @ 250 mls/hr IV Q24H [facility] Last Admin: 02/09/18 18:02 Dose: 250 mls/hr Ibuprofen (Motrin) 600 mg PO Q6H PRN PRN Reason: Pain (mild 1-3) Last Admin: 02/09/18 13:08 Dose: 600 mg Iopamidol (Isovue-370 (76%)) 100 ml IVPUSH ONETIME ONE Stop: 02/09/18 00:18 Last Admin: 02/09/18 00:27 Dose: 100 ml Ipratropium [place] (Atrovent) 0.5 mg NEB Q4H PRN PRN Reason: Dyspnea Lidocaine/Prilocaine (Emla Crm) 5 gm TOP ONETIME ONE Stop: 02/08/18 23:45 Last Admin: 02/08/18 23:50 Dose: 1 applic Magnesium Hydroxide (Milk Of Magnesia) 30 ml PO Q12H PRN PRN Reason: Constipation Methylprednisolone Sodium Succinate (Solu-Medrol) 62.5 mg IVPUSH Q24H [facility] Last Admin: 02/09/18 01:34 Dose: 62.5 mg Methylprednisolone Sodium Succinate (Solu-Medrol) 62.5 mg IVPUSH Q24H [facility] Last Admin: 02/09/18 18:00 Dose: 62.5 mg Arformoterol [ Brovana] 15mcg/2ml 1 AmpuleOwn Med 1 ampule INH BID@0630, 1830 [facility] Last Admin: 02/10/18 06:25 Dose: 1 ampule Polyethylene Glycol (Miralax) 17 gm PO DAILY PRN PRN Reason: Constipation Temazepam (Restoril) 15 mg PO BEDTIME PRN PRN Reason: Sleep - Exam Quality Assessment: Reports: Supplemental Oxygen General: Reports: Alert, Oriented HEENT: Reports: Mucous Membr. Moist/[place] Neck: Reports: Supple Lungs: Reports: Decreased Breath Sounds Cardiovascular: Reports: Regular Rate, Regular Rhythm GI/Abdominal Exam: Normal Bowel Sounds, Soft, Non-Tender Extremities: Normal Inspection, Pedal Edema (trace edema to ankles) Skin: Reports: Warm, Dry Neurological: Reports: No New Focal Deficit
== END 2018-02-10 10:22 | DRG 190 ==
LOC: CC.ED 22:19 → CC.MS 02-09 00:09 → CC.ED 02-09 00:15 → UNDOADMIN 02-09 00:58 → CC.MS 02-09 00:58
PROVIDERS: ADMIT Nurse Practitioner Family; ATTEND Family Medicine
DX: J44.1 Chronic obstructive pulmonary disease with (acute) exacerbation (principal); J18.9 Pneumonia, unspecified organism; J90 Pleural effusion, not elsewhere classified; J44.0 Chronic obstructive pulmonary disease with (acute) lower respiratory infection; I10 Essential (primary) hypertension; F41.9 Anxiety disorder, unspecified; C50.919 Malignant neoplasm of unspecified site of unspecified female breast; R91.1 Solitary pulmonary nodule; Z87.01 Personal history of pneumonia (recurrent); Z92.21 Personal history of antineoplastic chemotherapy; Z92.3 Personal history of irradiation; Z88.8 Allergy status to other drugs, medicaments and biological substances; Z88.0 Allergy status to penicillin; Z79.899 Other long term (current) drug therapy; Z79.51 Long term (current) use of inhaled steroids; Z85.44 Personal history of malignant neoplasm of other female genital organs; Z90.710 Acquired absence of both cervix and uterus; Z88.3 Allergy status to other anti-infective agents
CPT/HCPCS: 36415; 71046; 71275; 80053; 81001; 83880; 84484; 85025; 85379; 86140; 87040 ×2; 87804 ×2; 99285; Q9967 ×2; 80048; 94640; A9270-GY; J0456; J1642; J1650; J2930; J7050; J7620-GY

== ENCOUNTER 2018-02-19 15:50 | Emergency (ER) | payer MEDICARE, OTHER ==
[2018-02-19 16:18] VITALS: BP 134/76
[2018-02-19 16:48] LABS: CHLORIDE,CL 100 mEq/L (98-106); SODIUM,NA 143 mEq/L (136-145)
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
== END 2018-02-19 20:45 ==
LOC: CC.ED 15:50
DX: J44.1 Chronic obstructive pulmonary disease with (acute) exacerbation (principal); J90 Pleural effusion, not elsewhere classified; I10 Essential (primary) hypertension; Z88.1 Allergy status to other antibiotic agents; Z88.8 Allergy status to other drugs, medicaments and biological substances; Z91.030 Bee allergy status; Z79.899 Other long term (current) drug therapy
CPT/HCPCS: 36415; 71046; 80053; 82550; 83615; 84484; 85025; 86140; 99284; 99285

== ENCOUNTER 2019-04-04 00:05 | Emergency (ER) | payer MEDICARE, OTHER ==
[2019-04-04 00:09] VITALS: BP 156/83; PULSE 98
--- NOTE | 2019-04-04 01:19 | EDM.PDOC ---
ED HPI GENERAL MEDICAL PROBLEM - General Chief Complaint: Respiratory Problem Stated Complaint: SOB Time Seen by Provider: 04/04/19 00:32 Source of Information: Reports: Patient History Limitations: Reports: No Limitations - History of Present Illness INITIAL COMMENTS - FREE TEXT/NARRATIVE: This patient is a 68 year old female that presents to the ER. Patient reports for about a week, "when my gave it to me," feeling bad. Patient reports having congestion, drainage, runny nose, productive cough. Patient reports provider called her in a prescription for Doxycycline this week, but she did not do well with it, as far as made her feel worse. She reports she was seen by her PCP and prescribed Zithromax. Patient reports that still has not had improvement and had a hard time breathing due to her congestion and "rhinitis". Patient wears oxygen at home due to COPD. Currently 97% 2 L NC. Onset Date: 03/28/19 Duration: Week(s): (1) Severity: Mild Improves with: Reports: None Worsens with: Reports: None Associated Symptoms: Reports: Cough, cough w sputum, Shortness of Breath, Syncope. Denies: Confusion, Chest Pain, Diaphoresis, Fever/Chills, Headaches, Loss of Appetite, Malaise, Nausea/Vomiting, Rash, Seizure, Weakness Generalized Pain Score (Numeric/FACES): 4 - Related Data Allergies Allergy/AdvReac Type Severity Reaction Status Date / Time cephalexin [Cephalexin] Allergy Vomiting Verified 04/04/19 00:09 chlorothiazide Allergy Vomiting Verified 04/04/19 00:09 [Chlorothiazide] chlorthalidone Allergy Vomiting Verified 04/04/19 00:09 clindamycin Allergy Vomiting Verified 04/04/19 00:09 heparin Allergy Vomiting Verified 04/04/19 00:09 levofloxacin [From Levaquin] Allergy Other Verified 04/04/19 00:09 Penicillins Allergy Vomiting Verified 04/04/19 00:09 prednisone Allergy Vomiting Verified 04/04/19 00:09 all narcotics Allergy Vomiting Uncoded 04/04/19 00:09 bee sting Allergy Cannot Uncoded 04/04/19 00:09 Remember magnesium Allergy Vomiting Uncoded 04/04/19 00:09 Home Meds: Home Meds ALPRAZolam [Alprazolam] 0.25 mg PO QID PRN #120 tablet 09/11/16 [Rx] Budesonide [Pulmicort] 0.5 mg NEB 0700,1900 01/14/17 [History] Arformoterol [Brovana] 1 ampule INH BID 09/24/17 [History] Ipratropium [Atrovent] 1 inh NEB Q4H PRN 11/10/17 [History] guaiFENesin [Mucinex] 600 mg PO BID 11/10/17 [History] Albuterol [Ventolin HFA] 2 puff INH BID PRN 02/08/18 [History] Anastrozole [Arimidex] 1 mg PO DAILY 05/27/18 [History] Calcium Carbonate/Vitamin D3 [Caltrate-600 with Vit D Tab] 1 each PO DAILY 05/27 [History] Melatonin 3 mg PO BEDTIME 05/27/18 [History] Naproxen Sodium [Aleve] 220 mg PO Q12H PRN 05/27/18 [History] Past Medical History HEENT History: Reports: Allergic Rhinitis, Cataract, Sinusitis Cardiovascular History: Reports: Hypertension Respiratory History: Reports: COPD, Pneumonia, Recurrent, SOB Genitourinary History: Reports: UTI, Recurrent 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 (See Below) 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 History: 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 tube cancer Psychiatric History: Reports: Anxiety Oncologic (Cancer) History: Reports: Breast, Other (See Below) Other Oncologic History: fallopian tube cancer - Past Surgical History HEENT Surgical History: Reports: Cataract Surgery Cardiovascular Surgical History: Reports: None GI Surgical History: Reports: Appendectomy Female Surgical History: Reports: Hysterectomy Social & Family History - Family History Family Medical History: Noncontributory - Tobacco Use Smoking Status *Q: Current Every Day Smoker Years of Tobacco use: 50 Packs/Tins Daily: 0.2 - Caffeine Use Caffeine Use: Reports: Coffee - Recreational Drug Use Recreational Drug Use: No - Living Situation & Occupation Living situation: Reports: , with Spouse Occupation: Retired ED ROS GENERAL - Review of Systems Review Of Systems: See Below Constitutional: Reports: No Symptoms HEENT: Reports: Rhinitis, Sinus Problem Respiratory: Reports: Shortness of Breath, Cough, Sputum. Denies: Hemoptysis Cardiovascular: Reports: No Symptoms Endocrine: Reports: No Symptoms GI/Abdominal: Reports: No Symptoms : Reports: No Symptoms Musculoskeletal: Reports: No Symptoms Skin: Reports: No Symptoms Neurological: Reports: No Symptoms Psychiatric: Reports: No Symptoms Hematologic/Lymphatic: Reports: No Symptoms Immunologic: Reports: No Symptoms ED EXAM, GENERAL - Physical Exam Exam: See Below Exam Limited By: No Limitations General Appearance: Alert, WD/WN, No Apparent Distress, Anxious, Thin, Other ( chronic ill) Eye Exam: Bilateral Eye: Normal Inspection, PERRL Ears: Normal External Exam, Normal Canal, Hearing Grossly Normal, Normal TMs Ear Exam: Bilateral Ear: Auricle Normal, Canal Normal, TM normal Nose: Normal Inspection, Normal Mucosa, No Blood Throat/Mouth: Normal Inspection, Normal Lips, Normal Teeth, Normal Gums, Normal Oropharynx, Normal Voice, No Airway Compromise Head: Atraumatic, Normocephalic Neck: Normal Inspection, Supple, Non-Tender, Full Range of Motion Respiratory/Chest: No Respiratory Distress, No Accessory Muscle Use, Rhonchi ( mildly throughout. ). No: Respiratory Distress, Crackles, Rales, Accessory Muscle Use, Retractions Cardiovascular: Normal Peripheral Pulses, Regular Rate, Rhythm, No Edema, No Gallop, No JVD, No Murmur, No Rub Peripheral Pulses: 2+: Radial (L), Radial (R), Posterior Tibial (L), Posterior Tibial (R) Extremities: Normal Inspection, No Pedal Edema, Normal Capillary Refill Neurological: Alert, Oriented Psychiatric: Anxious Skin Exam: Warm, Dry, Intact, Normal Color, No Rash Lymphatic: No Adenopathy Course - Vital Signs Last Recorded V/S: Last Vital Signs Temp 98.3 F 04/04/19 00:06 Pulse 98 04/04/19 00:06 Resp 18 04/04/19 00:06 BP 156/83 H 04/04/19 00:06 Pulse Ox 97 04/04/19 00:06 - Orders/Labs/Meds Orders: Active Orders 24 hr Category Date Time Status Chest 2V [CR] Stat Exams 04/04/19 01:10 Ordered Labs: Laboratory Tests 04/04/19 04/04/19 Range/Units 01:18 01:18 WBC 4.8 L (5.0-10.0) 10^3/uL RBC 4.53 (4.00-5.50) 10^6/uL Hgb 14.6 (12.0-16.0) g/dL Hct 43.4 (37.0-47.0) % MCV 95.8 H (82.0-94.0) fL MCH 32.2 H (27.0-32.0) pg MCHC 33.6 (33.0-38.0) g/dL RDW Coeff of Lucille 12.6 (11.0-15.0) % Plt Count 196 (150-400) 10^3/uL Neut % (Auto) 45.1 (35-85) % Lymph % (Auto) 34.0 (10-55) % [place] % (Auto) 20.3 H (0-16) % Eos % (Auto) 0.4 (0-5) % Baso % (Auto) 0.2 (0-3) % Neut # (Auto) 2.16 (1.80-7.00) 10^3/uL Lymph # (Auto) 1.63 (1.00-4.80) 10^3/uL [place] # (Auto) 0.97 H (0.00-0.80) 10^3/uL Eos # (Auto) 0.02 (0.00-0.45) 10^3/uL Baso # (Auto) 0.01 10^3/uL Sodium 138 (136-145) mEq/L Potassium 4.4 (3.5-5.0) mEq/L Chloride 97 L (98-106) mEq/L Carbon Dioxide 32 (21-32) mmol/L BUN 20 H (7-18) mg/dL Creatinine 1.0 (0.6-1.0) mg/dL Est Cr Clr Drug Dosing 43.30 mL/min Estimated GFR (MDRD) 55 L (>=60) mL/min Glucose 100 H (75-99) mg/dL Calcium 9.0 (8.4-10.1) mg/dL - Radiology Interpretation Free Text/Narrative:: CXR: no infiltrates - Re-Assessments/Exams Free Text/Narrative Re-Assessment/Exam: 04/04/19 01:55 labs unremarkable. cxr reviewed. no acute distress. Will discharge home. Departure - Departure Time of Disposition: 02:05 Disposition: Home, Self-Care 01 Condition: Fair Clinical Impression: Upper respiratory infection Qualifiers: URI type: unspecified viral URI Qualified Code(s): J06.9 - Acute upper respiratory infection, unspecified - Discharge Information *PRESCRIPTION DRUG MONITORING PROGRAM REVIEWED*: Not Applicable *COPY OF PRESCRIPTION DRUG MONITORING REPORT IN PATIENT GUERO: Not Applicable Instructions: Upper Respiratory Infection, Adult, [id number] Referrals: Gaston Nicole MD [Primary Care Provider] - Forms: ED Department Discharge Additional Instructions: Followup with your primary care provider Return to the ER for worsening of condition or any emergent concerns Increase fluids Continue medications as prescribed Continue your breathing treatments and home medications Sepsis Event Note - Evaluation Sepsis Screening Result: No Definite Risk - Focused Exam Vital Signs: Vital Signs Temp Pulse Resp BP Pulse Ox 04/04/19 00:06 98.3 F 98 18 156/83 H 97 Date Exam was Performed: 04/04/19 Time Exam was Performed: 02:05 - My Orders Last 24 Hours: My Active Orders 04/04/19 01:10 Chest 2V [CR] Stat - Assessment/Plan Last 24 Hours: My Active Orders 04/04/19 01:10 Chest 2V [CR] Stat Plan: PLEASE SEE RN NOTE FOR PFSH.
== END 2019-04-04 02:18 | disposition home or self-care (01) ==
LOC: CC.ED 00:05
DX: J06.9 Acute upper respiratory infection, unspecified (principal); I10 Essential (primary) hypertension; J44.9 Chronic obstructive pulmonary disease, unspecified; F41.9 Anxiety disorder, unspecified; F17.210 Nicotine dependence, cigarettes, uncomplicated; Z79.899 Other long term (current) drug therapy; Z88.8 Allergy status to other drugs, medicaments and biological substances; Z91.030 Bee allergy status; Z88.1 Allergy status to other antibiotic agents
CPT/HCPCS: 36415; 71046; 80048; 85025; 99283; 99285-25

== ENCOUNTER 2021-11-17 18:49 | Emergency (ER) | payer MEDICARE, OTHER ==
[2021-11-17 18:58] VITALS: BP 150/99; PULSE 90
[2021-11-17] MEDS: Take Home: Nitrofurantoin Monohydrate/Macrocrystalline 100 MG, 2 Cap Pack PO ONE (22:01)
== END 2021-11-17 20:30 | disposition home or self-care (01) ==
LOC: CC.ED 18:49
DX: N30.01 Acute cystitis with hematuria (principal); I10 Essential (primary) hypertension; J44.9 Chronic obstructive pulmonary disease, unspecified; Z88.0 Allergy status to penicillin; Z88.1 Allergy status to other antibiotic agents; Z91.030 Bee allergy status; Z88.8 Allergy status to other drugs, medicaments and biological substances; Z79.899 Other long term (current) drug therapy
CPT/HCPCS: 36415; 80053; 81001; 85025; 87086; 87088; 87186; 99283; 99284; A9270-GY

== ENCOUNTER 2021-11-20 19:57 | Emergency (ER) | payer MEDICARE, OTHER ==
[2021-11-20 20:00] VITALS: BP 170/75; PULSE 95
[2021-11-20] MEDS: LORazepam 2 MG/ML Syringe IVPUSH ONE (20:20)
== END 2021-11-20 21:15 | disposition home or self-care (01) ==
LOC: CC.ED 19:57
DX: R42 Dizziness and giddiness (principal); T36.8X5A Adverse effect of other systemic antibiotics, initial encounter; J44.9 Chronic obstructive pulmonary disease, unspecified; I10 Essential (primary) hypertension; Z88.1 Allergy status to other antibiotic agents; Z88.0 Allergy status to penicillin; Z88.8 Allergy status to other drugs, medicaments and biological substances; Z91.030 Bee allergy status; Z88.5 Allergy status to narcotic agent; Z91.048 Other nonmedicinal substance allergy status
CPT/HCPCS: 96374; 99283; 99283-25; J2060

== ENCOUNTER 2021-12-31 10:54 | Emergency (ER) | payer MEDICARE, OTHER ==
[2021-12-31 11:08] VITALS: BP 165/78; PULSE 95
[2021-12-31] MEDS ORDERED: Take Home: Nitrofurantoin Monohydrate/Macrocrystalline 100 MG, 2 Cap Pack ONE (11:09)
[2021-12-31] MEDS: Take Home: Nitrofurantoin Monohydrate/Macrocrystalline 100 MG, 2 Cap Pack PO ONE (11:41)
== END 2021-12-31 11:45 | disposition home or self-care (01) ==
LOC: CC.ED 10:54
DX: N30.01 Acute cystitis with hematuria (principal); I10 Essential (primary) hypertension; J44.9 Chronic obstructive pulmonary disease, unspecified; Z88.1 Allergy status to other antibiotic agents; Z88.0 Allergy status to penicillin; Z91.030 Bee allergy status; Z88.5 Allergy status to narcotic agent; Z88.8 Allergy status to other drugs, medicaments and biological substances
CPT/HCPCS: 81001; 87086; 87088; 87186; 99283; 99284; A9270

== ENCOUNTER 2022-08-08 04:56 | Emergency (ER) | payer MEDICARE, OTHER ==
[2022-08-08 05:41] LABS: APPEARANCE,URINE CLOUDY (CLEAR); COLOR,URINE YELLOW (YELLOW); GLUCOSE,URINE NEGATIVE (NEGATIVE); KETONES,URINE TRACE mg/dL (NEGATIVE); LEUKOCYTE ESTERASE,URINE SMALL (NEGATIVE); NITRITE,URINE NEGATIVE (NEGATIVE); OCCULT BLOOD,URINE LARGE (NEGATIVE); PROTEIN,URINE >=300 mg/dL (NEGATIVE)
[2022-08-08 05:43] VITALS: BP 170/96
[2022-08-08 05:45] LABS: BILIRUBIN,URINE SMALL (NEGATIVE)
[2022-08-08 05:47] VITALS: PULSE 90
[2022-08-08 05:50] LABS: BACTERIA,URINE MANY /HPF (NOT SEEN); EPITHELIAL CELLS,URINE OCCASIONAL /HPF (NOT SEEN); WBC,URINE >100 /HPF (0-5)
[2022-08-08] MEDS: Nitrofurantoin Monohydrate/Macrocrystalline 100 MG Cap PO STA (06:01)
[2022-08-08] MEDS: Phenazopyridine 95 MG Tab PO STA (06:09)
== END 2022-08-08 06:17 | disposition home or self-care (01) ==
LOC: CC.ED 04:56
DX: N39.0 Urinary tract infection, site not specified (principal); J44.9 Chronic obstructive pulmonary disease, unspecified; I10 Essential (primary) hypertension; Z88.1 Allergy status to other antibiotic agents; Z88.2 Allergy status to sulfonamides; Z88.0 Allergy status to penicillin; Z91.030 Bee allergy status; Z79.899 Other long term (current) drug therapy; Z90.710 Acquired absence of both cervix and uterus
CPT/HCPCS: 81001; 87086; 87088; 87186; 99283; A9270-GY

== ENCOUNTER 2022-10-21 09:45 | Emergency (ER) | payer MEDICARE, OTHER ==
[2022-10-21 09:57] VITALS: BP 160/72; PULSE 100
[2022-10-21 10:16] LABS: APPEARANCE,URINE SLIGHTLY CLOUDY (CLEAR); BILIRUBIN,URINE NEGATIVE (NEGATIVE); COLOR,URINE YELLOW (YELLOW); GLUCOSE,URINE NEGATIVE (NEGATIVE); KETONES,URINE NEGATIVE (NEGATIVE); LEUKOCYTE ESTERASE,URINE MODERATE (NEGATIVE); NITRITE,URINE NEGATIVE (NEGATIVE); OCCULT BLOOD,URINE SMALL (NEGATIVE); PROTEIN,URINE NEGATIVE (NEGATIVE); UROBILINOGEN,URINE 0.2 EU/dL (0.2-1.0)
[2022-10-21 10:26] LABS: BACTERIA,URINE FEW /HPF (NOT SEEN); EPITHELIAL CELLS,URINE FEW /HPF (NOT SEEN); RBC,URINE 0-5 /HPF (0-5); WBC,URINE 75-100 /HPF (0-5)
[2022-10-21] MEDS: Take Home: Nitrofurantoin Monohydrate/Macrocrystalline 100 MG, 6 Cap Pack PO ONE (10:27)
== END 2022-10-21 10:35 | disposition home or self-care (01) ==
LOC: CC.ED 09:45
DX: N30.01 Acute cystitis with hematuria (principal); I10 Essential (primary) hypertension; J44.9 Chronic obstructive pulmonary disease, unspecified; Z91.030 Bee allergy status; Z88.5 Allergy status to narcotic agent; Z88.8 Allergy status to other drugs, medicaments and biological substances; Z88.1 Allergy status to other antibiotic agents; Z88.2 Allergy status to sulfonamides; Z88.0 Allergy status to penicillin; Z79.899 Other long term (current) drug therapy
CPT/HCPCS: 81001; 87086; 87088; 87186; 99283; 99284; A9270-GY

== ENCOUNTER 2023-01-01 19:14 | Emergency (ER) | payer MEDICARE, OTHER ==
[2023-01-01 19:42] LABS: BASOPHILS ABSOLUTE AUTO 0.03 10^3/uL (0.00-0.50); BASOPHILS PERCENT AUTO 0.3 % (0-1); EOSINOPHILS PERCENT AUTO 2.7 % (0-6); HEMATOCRIT 34.8 % (37.0-47.0); HEMOGLOBIN 11.2 g/dL (12.0-16.0); IMMATURE GRAN ABSOLUTE AUTO 0.02 10^3/uL (0.00-0.49); IMMATURE GRAN PERCENT AUTO 0.2 % (0.0-4.9); LYMPHOCYTES ABSOLUTE AUTO 2.98 10^3/uL (0.60-5.00); LYMPHOCYTES PERCENT AUTO 26.5 % (24-44); MEAN CORPUSCULAR HEMOGLOBIN 31.5 pg (27.0-32.0); MEAN CORPUSCULAR HGB CONC 32.2 g/dL (32.0-36.0); MONOCYTES PERCENT AUTO 12.4 % (0-10); NEUTROPHILS ABSOLUTE AUTO 6.52 x10^3/uL (1.80-8.00); NEUTROPHILS PERCENT AUTO 57.9 % (41-71); PLATELET COUNT,PLT 339 10^3/uL (150-400); RED BLOOD CELL COUNT 3.55 x10^6/uL (4.00-5.50); WHITE BLOOD CELL COUNT,WBC 11.3 10^3/uL (4.0-11.0)
[2023-01-01] MEDS ORDERED: Aluminum Hydroxide/Magnesium Hydroxide/Simethicone Susp 30 ML Cup PO ONE (19:48)
[2023-01-01 19:57] LABS: CREATININE 0.9 mg/dL (0.6-1.0); EST CRCL DRUG DOSING (CG) 45.36 mL/min
[2023-01-01 19:58] LABS: ALBUMIN 3.3 g/dL (3.4-5.0); BILIRUBIN TOTAL 0.3 mg/dL (0.0-1.0); MAGNESIUM 1.8 mg/dL (1.8-2.4)
[2023-01-01 20:08] VITALS: BP 163/63; PULSE 102
[2023-01-01] MEDS ORDERED: LORazepam 0.5 MG Tab PO ONE (20:16)
[2023-01-01 20:17] LABS: INR 0.95 (0.92-1.18); PROTHROMBIN TIME 9.8 SEC (9.3-11.3); PTT,PARTIAL THROMBOPLSTIN TIME 28.1 SEC (20.0-30.0)
== END 2023-01-01 21:08 | disposition home or self-care (01) ==
LOC: CC.ED 19:14
DX: K30 Functional dyspepsia (principal); R10.13 Epigastric pain; R91.8 Other nonspecific abnormal finding of lung field; I10 Essential (primary) hypertension; J44.9 Chronic obstructive pulmonary disease, unspecified; F17.210 Nicotine dependence, cigarettes, uncomplicated; Z88.1 Allergy status to other antibiotic agents; Z88.2 Allergy status to sulfonamides; Z88.8 Allergy status to other drugs, medicaments and biological substances; Z88.0 Allergy status to penicillin; Z88.5 Allergy status to narcotic agent; Z91.030 Bee allergy status
CPT/HCPCS: 36415; 71045; 80053; 83690; 83735; 84484; 85025; 85610; 85730; 93005; 93010; 99284; 99285; A9270-GY

== ENCOUNTER 2023-01-07 09:38 | Emergency (ER) | payer MEDICARE, OTHER ==
[2023-01-07 09:50] LABS: BASOPHILS ABSOLUTE AUTO 0.06 10^3/uL (0.00-0.50); BASOPHILS PERCENT AUTO 0.7 % (0-1); EOSINOPHILS ABSOLUTE AUTO 0.08 10^3/uL (0.00-1.50); EOSINOPHILS PERCENT AUTO 0.9 % (0-6); HEMATOCRIT 36.2 % (37.0-47.0); HEMOGLOBIN 11.4 g/dL (12.0-16.0); IMMATURE GRAN ABSOLUTE AUTO 0.02 10^3/uL (0.00-0.49); IMMATURE GRAN PERCENT AUTO 0.2 % (0.0-4.9); LYMPHOCYTES ABSOLUTE AUTO 1.52 10^3/uL (0.60-5.00); LYMPHOCYTES PERCENT AUTO 16.6 % (24-44); MEAN CORPUSCULAR HEMOGLOBIN 30.6 pg (27.0-32.0); MEAN CORPUSCULAR HGB CONC 31.5 g/dL (32.0-36.0); MEAN CORPUSCULAR VOLUME 97.3 fL (83.0-97.0); MONOCYTES ABSOLUTE AUTO 0.82 10^3/uL (0.00-1.50); MONOCYTES PERCENT AUTO 8.9 % (0-10); NEUTROPHILS ABSOLUTE AUTO 6.67 x10^3/uL (1.80-8.00); NEUTROPHILS PERCENT AUTO 72.7 % (41-71); PLATELET COUNT,PLT 363 10^3/uL (150-400); RED BLOOD CELL COUNT 3.72 x10^6/uL (4.00-5.50); WHITE BLOOD CELL COUNT,WBC 9.2 10^3/uL (4.0-11.0)
[2023-01-07] MEDS ORDERED: Sodium Chloride 0.9% 500 ML IV STA (09:55)
[2023-01-07 10:06] LABS: ALBUMIN 3.1 g/dL (3.4-5.0); BILIRUBIN TOTAL 0.3 mg/dL (0.0-1.0); C-REACTIVE PROTEIN 2.29 mg/dL (<=0.30); CALCIUM 9.3 mg/dL (8.4-10.1); CREATININE 0.9 mg/dL (0.6-1.0); EST CRCL DRUG DOSING (CG) 47.36 mL/min; POTASSIUM,K 4.2 mEq/L (3.5-5.0); PROTEIN TOTAL,TP 8.1 g/dL (6.4-8.2)
[2023-01-07] MEDS ORDERED: Ondansetron 4 MG/2 ML SDV IVPUSH STA (10:06)
[2023-01-07] MEDS ORDERED: LORazepam 2 MG/ML SDV IVPUSH ONE (10:20)
[2023-01-07] MEDS ORDERED: Budesonide 0.5 MG/2 ML Neb Susp NEB ONE (10:28)
[2023-01-07] MEDS ORDERED: Iopamidol 755 Mg/ML 100 ML Bottle IVPUSH ONE (10:34)
[2023-01-07 10:42] LABS: APPEARANCE,URINE CLEAR (CLEAR); BILIRUBIN,URINE NEGATIVE (NEGATIVE); COLOR,URINE YELLOW (YELLOW); GLUCOSE,URINE NEGATIVE (NEGATIVE); KETONES,URINE NEGATIVE (NEGATIVE); LEUKOCYTE ESTERASE,URINE NEGATIVE (NEGATIVE); NITRITE,URINE NEGATIVE (NEGATIVE); OCCULT BLOOD,URINE TRACE-INTACT (NEGATIVE); PROTEIN,URINE NEGATIVE (NEGATIVE); UROBILINOGEN,URINE 0.2 EU/dL (0.2-1.0)
[2023-01-07 10:49] LABS: BACTERIA,URINE NOT SEEN /HPF (NOT SEEN); EPITHELIAL CELLS,URINE OCCASIONAL /HPF (NOT SEEN); MUCUS,URINE NOT SEEN /HPF (NOT SEEN); RBC,URINE NOT SEEN /HPF (0-5); WBC,URINE 0-5 /HPF (0-5)
[2023-01-07 11:05] VITALS: BP 164/72; PULSE 94
== END 2023-01-07 13:00 | disposition home or self-care (01) ==
LOC: CC.ED 09:38
DX: R42 Dizziness and giddiness (principal); R11.0 Nausea; I10 Essential (primary) hypertension; J44.9 Chronic obstructive pulmonary disease, unspecified; Z88.2 Allergy status to sulfonamides; Z88.8 Allergy status to other drugs, medicaments and biological substances; Z88.0 Allergy status to penicillin; Z88.5 Allergy status to narcotic agent; Z91.030 Bee allergy status; Z88.1 Allergy status to other antibiotic agents; Z79.899 Other long term (current) drug therapy
CPT/HCPCS: 36415; 74177; 80053; 81001; 83690; 83735; 84484; 85025; 86140; 93005; 93010; 94640; 96361; 96374; 96375; 99284; 99285-25; J2060; J2405; J3490; J7040

== ENCOUNTER 2023-01-14 13:39 | Observation (INO) | payer MEDICARE, OTHER ==
[2023-01-14] MEDS ORDERED: Albuterol/Ipratropium 3.0-0.5 MG/3 ML Neb Soln NEB ONE (14:06)
[2023-01-14 14:20] LABS: BASOPHILS ABSOLUTE AUTO 0.03 10^3/uL (0.00-0.50); BASOPHILS PERCENT AUTO 0.3 % (0-1); EOSINOPHILS ABSOLUTE AUTO 0.13 10^3/uL (0.00-1.50); EOSINOPHILS PERCENT AUTO 1.3 % (0-6); HEMATOCRIT 34.5 % (37.0-47.0); HEMOGLOBIN 11.1 g/dL (12.0-16.0); IMMATURE GRAN ABSOLUTE AUTO 0.03 10^3/uL (0.00-0.49); IMMATURE GRAN PERCENT AUTO 0.3 % (0.0-4.9); LYMPHOCYTES ABSOLUTE AUTO 1.64 10^3/uL (0.60-5.00); LYMPHOCYTES PERCENT AUTO 16.3 % (24-44); MEAN CORPUSCULAR HGB CONC 32.2 g/dL (32.0-36.0); MEAN CORPUSCULAR VOLUME 96.4 fL (83.0-97.0); MONOCYTES ABSOLUTE AUTO 1.35 10^3/uL (0.00-1.50); MONOCYTES PERCENT AUTO 13.4 % (0-10); NEUTROPHILS ABSOLUTE AUTO 6.87 x10^3/uL (1.80-8.00); NEUTROPHILS PERCENT AUTO 68.4 % (41-71); PLATELET COUNT,PLT 387 10^3/uL (150-400); RED BLOOD CELL COUNT 3.58 x10^6/uL (4.00-5.50); WHITE BLOOD CELL COUNT,WBC 10.1 10^3/uL (4.0-11.0)
[2023-01-14 14:40] LABS: BILIRUBIN TOTAL 0.2 mg/dL (0.0-1.0); C-REACTIVE PROTEIN 2.42 mg/dL (<=0.30); CALCIUM 9.5 mg/dL (8.4-10.1); CREATININE 0.7 mg/dL (0.6-1.0); EST CRCL DRUG DOSING (CG) 60.89 mL/min; MAGNESIUM 2.1 mg/dL (1.8-2.4); POTASSIUM,K 4.2 mEq/L (3.5-5.0); PROTEIN TOTAL,TP 7.7 g/dL (6.4-8.2)
[2023-01-14 14:43] LABS: APPEARANCE,URINE CLEAR (CLEAR); BILIRUBIN,URINE NEGATIVE (NEGATIVE); COLOR,URINE YELLOW (YELLOW); GLUCOSE,URINE NEGATIVE (NEGATIVE); KETONES,URINE NEGATIVE (NEGATIVE); LEUKOCYTE ESTERASE,URINE TRACE (NEGATIVE); NITRITE,URINE NEGATIVE (NEGATIVE); OCCULT BLOOD,URINE NEGATIVE (NEGATIVE); PROTEIN,URINE NEGATIVE (NEGATIVE)
[2023-01-14 14:53] LABS: BACTERIA,URINE FEW /HPF (NOT SEEN); RBC,URINE 0-5 /HPF (0-5); SQUAMOUS EPITHELIAL CELLS,UR FEW /HPF (NOT SEEN); WBC,URINE 0-5 /HPF (0-5)
[2023-01-14 14:54] LABS: MUCUS,URINE FEW /HPF (NOT SEEN)
[2023-01-14] MEDS ORDERED: Sodium Chloride 0.9% 1,000 ML IV ONE (15:07)
[2023-01-14] MEDS ORDERED: Ondansetron 4 MG/2 ML SDV IVPUSH STA (15:24)
[2023-01-14] MEDS ORDERED: Albuterol/Ipratropium 3.0-0.5 MG/3 ML Neb Soln ONE (18:07)
[2023-01-14] MEDS ORDERED: Albuterol 6.7 GM Inhaler INH PRN (19:03)
[2023-01-14] MEDS ORDERED: Sodium Chloride 0.9% 1,000 ML IV STA (19:03)
[2023-01-14] MEDS ORDERED: Ondansetron 4 MG/2 ML SDV IV PRN (19:03)
[2023-01-14] MEDS ORDERED: Ondansetron 4 MG Tab.DIS PO PRN (19:03)
[2023-01-14] MEDS: Albuterol/Ipratropium 3.0-0.5 MG/3 ML Neb Soln INH SCH ×2 (19:40→23:00)
[2023-01-14] MEDS: ALPRAZolam 0.25 MG Tab PO SCH (19:57)
[2023-01-14] MEDS ORDERED: GUAIFENESIN 600 MG PO SCH (20:00)
[2023-01-14] MEDS ORDERED: Melatonin 3 MG Tab PO SCH (20:00)
[2023-01-14] MEDS: Acetaminophen 325 MG Tab PO PRN (20:05)
[2023-01-14] MEDS: Budesonide 0.5 MG/2 ML Neb Susp NEB SCH (20:10)
[2023-01-14] MEDS: Nicotine 21 MG/24 Hr Patch TRDERM SCH (20:38)
[2023-01-14] MEDS: Ipratropium 0.02% 0.5 MG/2.5 ML Neb Soln NEB SCH (20:39)
[2023-01-15] MEDS: Ipratropium 0.02% 0.5 MG/2.5 ML Neb Soln NEB SCH ×4 (00:24→10:17)
[2023-01-15] MEDS: Albuterol/Ipratropium 3.0-0.5 MG/3 ML Neb Soln INH SCH ×3 (03:29→08:38)
[2023-01-15] MEDS: Acetaminophen 325 MG Tab PO PRN (03:29)
[2023-01-15] MEDS: Budesonide 0.5 MG/2 ML Neb Susp NEB SCH (07:17)
[2023-01-15] MEDS: Nicotine 21 MG/24 Hr Patch TRDERM SCH (07:23)
[2023-01-15] MEDS: Anastrozole 1 MG Tab PO SCH ×2 (07:23→14:46)
[2023-01-15] MEDS: ALPRAZolam 0.25 MG Tab PO SCH (07:36)
[2023-01-15 07:59] LABS: CALCIUM 8.5 mg/dL (8.4-10.1); CREATININE 0.6 mg/dL (0.6-1.0); EST CRCL DRUG DOSING (CG) 71.03 mL/min; POTASSIUM,K 4.1 mEq/L (3.5-5.0)
[2023-01-15] MEDS ORDERED: Calcium Carbonate/Vitamin D3 1250 MG-5 MCG Tab PO SCH (08:00)
[2023-01-15 08:04] LABS: BASOPHILS ABSOLUTE AUTO 0.07 10^3/uL (0.00-0.50); BASOPHILS PERCENT AUTO 0.7 % (0-1); EOSINOPHILS ABSOLUTE AUTO 0.26 10^3/uL (0.00-1.50); EOSINOPHILS PERCENT AUTO 2.7 % (0-6); IMMATURE GRAN ABSOLUTE AUTO 0.03 10^3/uL (0.00-0.49); IMMATURE GRAN PERCENT AUTO 0.3 % (0.0-4.9); LYMPHOCYTES ABSOLUTE AUTO 2.41 10^3/uL (0.60-5.00); LYMPHOCYTES PERCENT AUTO 25.2 % (24-44); MEAN CORPUSCULAR HEMOGLOBIN 30.5 pg (27.0-32.0); MEAN CORPUSCULAR HGB CONC 31.3 g/dL (32.0-36.0); MEAN CORPUSCULAR VOLUME 97.6 fL (83.0-97.0); MONOCYTES ABSOLUTE AUTO 1.35 10^3/uL (0.00-1.50); MONOCYTES PERCENT AUTO 14.1 % (0-10); NEUTROPHILS ABSOLUTE AUTO 5.43 x10^3/uL (1.80-8.00); PLATELET COUNT,PLT 365 10^3/uL (150-400); RED BLOOD CELL COUNT 3.28 x10^6/uL (4.00-5.50); WHITE BLOOD CELL COUNT,WBC 9.6 10^3/uL (4.0-11.0)
[2023-01-15 11:43] VITALS: BP 138/44; PULSE 85
== END 2023-01-15 11:47 | disposition home or self-care (01) ==
LOC: CC.ED 13:39 → SUPCPDRO 13:39 → CC.MS 17:30
PROVIDERS: ADMIT Nurse Practitioner; ATTEND Nurse Practitioner
DX: J44.9 Chronic obstructive pulmonary disease, unspecified (principal); R53.1 Weakness; R11.0 Nausea; F41.9 Anxiety disorder, unspecified; I10 Essential (primary) hypertension; F17.210 Nicotine dependence, cigarettes, uncomplicated; Z88.1 Allergy status to other antibiotic agents; Z88.2 Allergy status to sulfonamides; Z88.0 Allergy status to penicillin; Z88.8 Allergy status to other drugs, medicaments and biological substances; Z79.899 Other long term (current) drug therapy
CPT/HCPCS: 36415; 70450; 71045; 80048; 80053; 81001; 83735; 84484; 85025; 86140; 93005; 93010; 94640; 96361; 96374; 99285-25; A9270-GY; G0378; J2405; J3490; J7030; J7620-GY